=== PATIENT | female | born 2000 | race Hispanic/Latino ===

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

== ENCOUNTER 2019-03-26 06:22 | Emergency (ER) | payer BC, OTHER ==
--- OUTSIDE RECORDS SUMMARY | 2019-03-26 06:24 | XMS REPORT | Summary of Care ---
:2000 Author Organization [facility] - Health Address [address] [place] [address] Care Team Providers Name Role Phone Sarah Conrad Primary Care Provider Encounter Details Date Type Department Care Team Description 12/18/2018 Orders Only [facility] Doctor Unassigned, No [address] [facility] [place] [address] [address] [place] [address] Allergies Active Allergy Reactions Severity Noted Date Comments Cantaloupe Hives, Shortness of Breath 03/04/2016 documented as of this encounter (statuses as of 12/18/2018) Medications Medication Sig Dispensed Refills Start Date End Date Status levalbuterol 0 08/21/2015 Active (XOPENEX) 1.25 mg/3 mL nebulizer solution EPIPEN 2-TRINA 0.3 INJECT 1 PEN INJECTOR 0 02/23/2017 Active mg/0.3 mL injection INTRAMUSCULARLY PRN cetirizine (ZYRTEC) Take 10 mg by mouth 0 Active 10 mg tablet daily. estradiol 1 mg Take 1 tablet by 30 tablet 3 12/06/2017 Active tablet mouth daily. dicyclomine 20 mg TK 1 T PO Q 6 H PRN 0 02/10/2018 Active tablet metroNIDAZOLE 500 TK 1 T PO BID FOR 7 0 05/18/2018 Active mg tablet DAYS Hospital, Clinic, or Other Ordered Dose Route Frequency Start Date End Date Status Facility Administered Medication medroxyPROGESTERone 150 mg IM [id number] 09/18/2018 05/28/2019 Active (DEPO-PROVERA) injection 150 mg documented as of this encounter (statuses as of 12/18/2018) Active Problems No known active problemsdocumented as of this encounter (statuses as of 2018) Social History Tobacco Use Types Packs/Day Years Used Date Never Smoker Smokeless Tobacco: Never Used Alcohol Use Drinks/Week oz/Week Comments No 0 Standard drinks or equivalent 0.0 Sex Assigned at Date Recorded Not on file Job Start Date Occupation Industry Not on file Not on file Not on file Travel History Travel Start Travel End No recent travel history available. documented as of this encounter Last Filed Vital Signs Not on filedocumented in this encounter Plan of Treatment Date Type Specialty Care Team Description 05/22/2019 Office Visit Obstetrics & Gynecology Marta Perez MD [address] [place] [address] [place] [address] [phone] Health Maintenance Due Date Last Done Comments MENINGOCOCCAL B VACCINES (1 10/11/2009 of 2 - Risk Bexsero 2-dose series) VARICELLA VACCINES (1 of 2 - 10/11/2012 13+ 2-dose series) HPV VACCINES (1 - Female 10/11/2014 3-dose series) DTaP,Tdap,and Td Vaccines (1 10/11/2018 - Tdap) INFLUENZA VACCINE (#1) 2018 CHLAMYDIA SCREENING 08/09/2019 08/08/2018, 12/06/2017, 03/07/2017, Additional history exists MENINGOCOCCAL VACCINE Aged Out No longer eligible based on patient's age to complete this topic PNEUMOCOCCAL 0-64 YEARS Aged Out No longer eligible COMBINED SERIES based on patient's age to complete this topic documented as of this encounter Procedures Procedure Name Priority Date/Time Associated Diagnosis Comments NO SHOW OR MISSED Routine 12/18/2018 9:20 AM APPOINTMENT POLICY CDT ACKNOWLEDGEMENT documented in this encounter Results Not on filedocumented in this encounter Insurance Payer Benefit Plan / Subscriber ID Effective Phone Address Type Group Dates [facility] [id number] 2018-Tamiko [phone] [address] PPO/POS [id number] [place] [address] [facility] xxxxxxxxx 2016-Tamiko Medicaid CHILDRENS HEALTH nt HEALTH PLAN - MANAGED MEDICAID documented as of this encounter
--- OUTSIDE RECORDS SUMMARY | 2019-03-26 06:24 | XMS REPORT ---
:2000 [facility] Address [address] [place] [address] Dr. Camargo [address] [place] [address] Care Team Providers Name Role Phone Unavailable Unavailable Unavailable Problems This patient has no known problems. Allergies, Adverse Reactions, Alerts This patient has no known allergies or adverse reactions. Medications This patient has no known medications.
--- OUTSIDE RECORDS SUMMARY | 2019-03-26 06:24 | XMS REPORT | Summary of Care ---
:2000 Author Organization [facility] Address [address] [place] [address] Care Team Providers Name Role Phone Sarah Conrad Primary Care Provider Reason for Visit Reason Comments DEPO PROVERA Encounter Details Date Type Department Care Team Description 12/18/2018 Nurse Visit [facility] [address] [place] [address] DRShereen Rikki [address] [place] [address] Encounter for Healthcare- [place] Nurse, [facility] Depo-Provera [address] [place] [address], [facility] (Primary [address] Dx) [place] [phone] Allergies Active Allergy Reactions Severity Noted Date [...] Facility Administered Medication medroxyPROGESTERone 150 mg IM [id number] 09/18/2018 05/28/2019 Active (DEPO-PROVERA) injection 150 mg [...] of this encounter Last Filed Vital Signs Vital Sign Reading Time Taken Comments Blood Pressure 121/79 12/18/2018 9:58 AM CDT Pulse 98 12/18/2018 9:58 AM CDT Temperature 36.9 C (98.4 F) 12/18/2018 9:58 AM CDT Respiratory Rate 18 12/18/2018 9:58 AM CDT Oxygen Saturation - - Inhaled Oxygen Concentration - - Weight 67 kg (147 lb 12.8 oz) 12/18/2018 9:58 AM CDT Height 167.6 cm (5' 6") 12/18/2018 9:58 AM CDT Body Mass Index 23.86 12/18/2018 9:58 AM CDT documented in this encounter Progress Notes Tejal Weir MA - 12/18/2018 9:00 AM CDT18 year old female has been identified by and name. Verbal consent has been obtained by patientto have an injection of Depo Provera, as ordered by the provider. Date of last Depo Provera injection: 09/18/18 Last Pap Smear: n/a Encounter Diagnosis: Z 30.42 The site was cleaned with an alcohol swab and given intramuscularly (IM) in the right gluteus. A band aid dressing was then applied to the injection site. The patient tolerated the procedure well , no rash, swelling or reaction noted. documented in this encounter Plan of Treatment Date Type Specialty Care Team Description 03/19/2019 Nurse Visit Obstetrics & Gynecology Nurse, [facility] 05/22/2019 Office Visit Obstetrics & Gynecology Marta Perez MD [address] [place] [address] [place] [address] [phone] Health Maintenance Due Date Last Done Comments [...] this topic documented as of this encounter Results Not on filedocumented in this encounter Visit Diagnoses Diagnosis Encounter for Depo-Provera contraception - Primary Surveillance of other previously prescribed contraceptive method documented in this encounter Administered Medications Medication Order MAR Action Action Date Dose Rate Site medroxyPROGESTERone Given 12/18/2018 9:41 150 mg Right (DEPO-PROVERA) injection 150 AM CDT Dorsogluteal-IM mg 150 mg, Intramuscular, [id number], 3 doses, First dose on Tue09/18/18 at 1015, Last dose on Tue03/05/19 at 1015, Routine Given 09/18/2018 10:06 AM CDT 150 mg Left Dorsogluteal-IM documented in this encounter Insurance Payer Benefit Plan Subscriber ID Effective Dates Phone Address Type / Group BCBS [facility] [id number] 2018-Astrid [phone] [address] PPO/POS [place] [id number] [place] [address] documented as of this encounter
[2019-03-26] MEDS ORDERED: MORPHINE 4 MG/ML SYR ONE (06:55)
[2019-03-26] MEDS ORDERED: ONDANSETRON 4 MG/2 ML VIAL ONE (06:55)
[2019-03-26 07:00] LABS: Absolute Lymphocytes (CBC) 2.4 K/uL (0.7-4.9); Basophils % 0.5 % (0-1.3); Hematocrit 38.9 % (36.0-45.0); Lymphocytes % 23.1 % (15.3-44.8); MPV 9.1 fL (7.6-11.3); RBC Red Blood Cell Count 4.13 M/uL (3.86-4.86)
[2019-03-26 07:40] LABS: ALT/SGPT 26 U/L (12-78); Albumin 4.1 g/dL (3.4-5.0); Alkaline Phosphatase 78 U/L (45-117); BUN Blood Urea Nitrogen 12 mg/dL (7-18); Bicarbonate 24 mmol/L (21-32); Bilirubin Total 0.6 mg/dL (0.2-1.0); Glucose Level 90 mg/dL (74-106); Protein, Total 7.3 g/dL (6.4-8.2); Sodium Level 141 mmol/L (136-145)
[2019-03-26 07:47] LABS: Urine Blood TRACE (NEG); Urine Glucose NEGATIVE (NEG); Urine Protein NEGATIVE (NEG); Urine Specific Gravity 1.025 (1.005-1.030)
--- NOTE | 2019-03-26 08:20 | ER ---
Nurse's Notes [facility] Name: July Simental Age: 18 yrs Sex: Female : 2000 Arrival Date: 03/26/2019 Time: 06:25 Bed 5 Private MD: Diagnosis: Constipation;Right lower quadrant abdominal tenderness Presentation: 03/26 06:30 Presenting complaint: Patient states: sudden pain felt around 0530 today morning. pain rr5 score 10/10. denies nausea, vomiting or diarrhea. Transition of care: patient was not received from another setting of care. Onset of symptoms was March 26, 2019 at 05:30. Risk Assessment: Do you want to hurt yourself or someone else? Patient reports no desire to harm self or others. Initial Sepsis Screen: Does the patient meet any 2 criteria? No. Patient's initial sepsis screen is negative. Does the patient have a suspected source of infection? No. Patient's initial sepsis screen is negative. Care prior to arrival: None. 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 - Social history:: Smoking status: Patient/guardian denies using tobacco, Patient uses alcohol, but reports only rare drinking. Patient/guardian denies using street drugs. - Ebola Screening: : Patient negative for fever greater than or equal to 101.5 degrees Fahrenheit, and additional compatible Ebola Virus Disease symptoms Patient denies exposure to infectious person Patient denies travel to an Ebola-affected area in the 21 days before illness onset. Screenin:35 Abuse screen: Denies threats or abuse. Denies injuries from another. Nutritional rr5 screening: No deficits noted. Tuberculosis screening: No symptoms or risk factors identified. Fall Risk IV access (20 points). Total Ballard Fall Scale indicates No Risk (0-24 pts). Assessment: 06:35 General: Appears in no apparent distress. uncomfortable, Behavior is calm, cooperative, rr5 appropriate for age. Pain: Complains of pain in lower abdomen Pain does not radiate. Pain currently is 10 out of 10 on a pain scale. Quality of pain is described as aching, Pain began suddenly, Is continuous. Neuro: Level of Consciousness is awake, alert, obeys commands, Oriented to person, place, time, situation, Appropriate for age. Cardiovascular: Capillary refill < 3 seconds Patient's skin is warm and dry. Respiratory: Airway is patent Respiratory effort is even, unlabored, Respiratory pattern is regular, symmetrical. GI: Abdomen is flat, Bowel sounds present X 4 quads. Guarding noted in lower quadrant Reports lower abdominal pain, Patient currently denies diarrhea, nausea, vomiting. : No signs and/or symptoms were reported regarding the genitourinary system. EENT: No signs and/or symptoms were reported regarding the EENT system. Derm: Skin is intact, is healthy with good turgor, Skin temperature is warm. Musculoskeletal: Circulation, motion, and sensation intact. Capillary refill < 3 seconds. 07:29 Reassessment: Patient appears in no apparent distress at this time. No changes from la1 previously documented assessment. Patient and/or family updated on plan of care and expected duration. Pain level reassessed. Vital Signs: 06:31 BP 130 / 92; Pulse 110; Resp 18; Temp 98.7; Pulse Ox 100% ; Weight 69.4 kg; Height 5 rr5 ft. 5 in. (165.10 cm); Pain 10/10; 06:31 Body Mass Index 25.46 (69.40 kg, 165.10 cm) rr5 ED Course: 06:25 Patient arrived in ED. jg7 06:30 Marky Mitchell RN is Primary Nurse. rr5 06:30 Arm band placed on. rr5 06:31 Triage completed. rr5 06:33 Ventura Ludwig PA is PHCP. jr8 06:33 Ace De MD is Attending Physician. jr8 06:37 Patient has correct armband on for positive identification. Bed in low position. Call rr5 light in reach. Pulse ox on. NIBP on. 06:45 Inserted saline lock: 20 gauge in left forearm, using aseptic technique. Blood rr5 collected. 07:43 US Transvaginal Study (Probe) In Process Unspecified. EDMS 08:03 CT Abd/Pelvis - IV Contrast Only In Process Unspecified. EDMS 08:56 No provider procedures requiring assistance completed. IV discontinued, intact, ss bleeding controlled, No redness/swelling at site. Pressure dressing applied. Administered Medications: 07:00 Drug: Zofran 4 mg Route: IVP; Site: left forearm; rr5 07:02 Drug: morphine 4 mg {Note: rass 0.} Route: IVP; Site: left forearm; rr5 Outcome: 08:19 Discharge ordered by . yousuf 08:56 Discharged to home ambulatory. ss 08:56 Condition: good 08:56 Discharge instructions given to patient, Instructed on discharge instructions, follow up and referral plans. medication usage, Demonstrated understanding of instructions, follow-up care, medications, Prescriptions given X 1. 08:57 Patient left the ED. ss Signatures: Dispatcher [employer] EDSD Stephanie Luis RN RN Ventura Barajas PA PA jr8 Yaniv Ruelas RN RN la1 Marky Mitchell RN RN rr5 Anisha Bluntg7 Corrections: (The following items were deleted from the chart) 06:48 06:34 Allergies: NKDA [Inactive]; rr5 rr5
--- NOTE | 2019-03-26 08:21 | EDPHYS ---
Physician Documentation [facility] Name: July Simental Age: 18 yrs Sex: Female : 2000 Arrival Date: 03/26/2019 Time: 06:25 Bed 5 Private MD: ED Physician Ace De HPI: 03/26 07:28 This 18 yrs old Female presents to ER via Ambulatory with complaints of jr8 Abdominal Pain. 07:28 The patient presents with abdominal pain right lower quadrant. Onset: The jr8 symptoms/episode began/occurred acutely, today. The symptoms do not radiate. Associated signs and symptoms: none. The symptoms are described as stabbing. Modifying factors: The symptoms are alleviated by nothing, the symptoms are aggravated by nothing. Severity of pain: At its worst the pain was moderate in the emergency department the pain is unchanged. The patient has experienced a previous episode. The patient has not recently seen a physician. Patient stated that she had sudden onset right lower pelvic pain that will not go away. Stated that she has had this once before along time ago. Stated that it was ovarian torsion and had to have surgery . DAG COATER: 06:31 LMP N/A - Depo-provera rr5 Historical: - Allergies: 06:33 No Known Allergies; rr5 - Home Meds: 06:33 Depo-Provera IM [Active]; rr5 06:47 Zyrtec Oral [Active]; Xopenex Inhl [Active]; rr5 - PMHx: 06:33 Ulcers; rr5 06:34 Asthma; Heart Murmur; neurofibromatosis; Ovarian cyst; rr5 - PSHx: 06:34 ovarian cyst removal; rr5 - Immunization history:: Adult Immunizations up to date. - Social history:: Smoking status: Patient/guardian denies using tobacco, Patient uses alcohol, but reports only rare drinking. Patient/guardian denies using street drugs. - Ebola Screening: : Patient negative for fever greater than or equal to 101.5 degrees Fahrenheit, and additional compatible Ebola Virus Disease symptoms Patient denies exposure to infectious person Patient denies travel to an Ebola-affected area in the 21 days before illness onset. ROS: 07:28 Eyes: Negative for injury, pain, redness, and discharge, ENT: Negative for injury, jr8 pain, and discharge, Neck: Negative for injury, pain, and swelling, Cardiovascular: Negative for chest pain, palpitations, and edema, Respiratory: Negative for shortness of breath, cough, wheezing, and pleuritic chest pain, Back: Negative for injury and pain, MS/Extremity: Negative for injury and deformity, Skin: Negative for injury, rash, and discoloration, Neuro: Negative for headache, weakness, numbness, tingling, and seizure. 07:28 Abdomen/GI: Positive for abdominal pain, Negative for nausea, vomiting, and diarrhea, abdominal cramps, abdominal distension, anorexia, dysphagia, hematemesis, rectal pain. Exam: 07:28 Eyes: Pupils equal round and reactive to light, extra-ocular motions intact. Lids and jr8 lashes normal. Conjunctiva and sclera are non-icteric and not injected. Cornea within normal limits. Periorbital areas with no swelling, redness, or edema. ENT: Nares patent. No nasal discharge, no septal abnormalities noted. Tympanic membranes are normal and external auditory canals are clear. Oropharynx with no redness, swelling, or masses, exudates, or evidence of obstruction, uvula midline. Mucous membranes moist. Neck: Trachea midline, no thyromegaly or masses palpated, and no cervical lymphadenopathy. Supple, full range of motion without nuchal rigidity, or vertebral point tenderness. No Meningismus. Cardiovascular: Regular rate and rhythm with a normal S1 and S2. No gallops, murmurs, or rubs. Normal PMI, no JVD. No pulse deficits. Respiratory: Lungs have equal breath sounds bilaterally, clear to auscultation and percussion. No rales, rhonchi or wheezes noted. No increased work of breathing, no retractions or nasal flaring. Back: No spinal tenderness. No costovertebral tenderness. Full range of motion. Skin: Warm, dry with normal turgor. Normal color with no rashes, no lesions, and no evidence of cellulitis. MS/ Extremity: Pulses equal, no cyanosis. Neurovascular intact. Full, normal range of motion. Neuro: Awake and alert, GCS 15, oriented to person, place, time, and situation. Cranial nerves II-XII grossly intact. Motor strength 5/5 in all extremities. Sensory grossly intact. Cerebellar exam normal. Normal gait. 07:28 Abdomen/GI: Inspection: abdomen appears normal, Bowel sounds: active, all quadrants, Palpation: soft, in all quadrants, moderate abdominal tenderness, in the right lower quadrant, right lower pelvic, mass, is not appreciated, rebound tenderness, is not appreciated, voluntary guarding, is not appreciated, involuntary guarding, is not appreciated, no appreciated organomegaly, Indicators: McBurney's point is not tender, Medina's sign is negative, Rovsing's sign is negative, Liver: tenderness, is not appreciated. Vital Signs: 06:31 BP 130 / 92; Pulse 110; Resp 18; Temp 98.7; Pulse Ox 100% ; Weight 69.4 kg; Height 5 rr5 ft. 5 in. (165.10 cm); Pain 10/10; 06:31 Body Mass Index 25.46 (69.40 kg, 165.10 cm) rr5 MDM: 06:42 Patient medically screened. 8 08:18 Data reviewed: vital signs, nurses notes, lab test result(s), radiologic studies, CT jr8 scan, ultrasound, and as a result, I will discharge patient. Data interpreted: Pulse oximetry: on room air is 100 %. Interpretation: normal. Counseling: I had a detailed discussion with the patient and/or guardian regarding: the historical points, exam findings, and any diagnostic results supporting the discharge/admit diagnosis, lab results, radiology results, the need for outpatient follow up, a family practitioner, to return to the emergency department if symptoms worsen or persist or if there are any questions or concerns that arise at home. 08:18 Special discussion: Based on the patient's Hx, exam, and Dx evaluation, there is no jr8 indication for emergent surgery or inpatient Tx. It is understood by the patient/guardian that if the Sx's persist or worsen they need to return immediately for re-evaluation. 03/26 06:43 Order name: Urine Dipstick--Ancillary (enter results); Complete Time: 07:48 cm6 03/26 06:43 Order name: Urine --Ancillary (enter results); Complete Time: 07:48 cm6 03/26 06:50 Order name: Basic Metabolic Panel; Complete Time: 08:38 jr8 03/26 06:50 Order name: CBC with Diff; Complete Time: 07:11 jr8 03/26 06:50 Order name: Creatinine for Radiology; Complete Time: 07:45 jr8 03/26 06:50 Order name: Hepatic Function; Complete Time: 08:38 8 03/26 06:50 Order name: IV Saline Lock; Complete Time: 06:52 8 03/26 06:50 Order name: Labs collected and sent; Complete Time: 06:53 8 03/26 06:50 Order name: US Transvaginal Study (Probe) [facility] 03/26 07:48 Order name: CT Abd/Pelvis - IV Contrast Only; Complete Time: 08:34 [facility] Administered Medications: 07:00 Drug: Zofran 4 mg Route: IVP; Site: left forearm; rr5 07:02 Drug: morphine 4 mg {Note: rass 0.} Route: IVP; Site: left forearm; rr5 Disposition: 03/27 03:35 Co-signature as Attending Physician, Ace De MD I agree with the assessment and tw4 plan of care. Disposition: 03/26/19 08:19 Discharged to Home. Impression: Constipation, Right lower quadrant abdominal tenderness. - Condition is Stable. - Discharge Instructions: Abdominal Pain, Adult, Constipation, Adult. - Prescriptions for Miralax 17 gram/dose Oral - take 1 packet by ORAL route once daily dilute powder in 8 ounces of water or juice; 1 box. - Medication Reconciliation Form, Thank You Letter, Antibiotic Education, Prescription Opioid Use, Work release form form. - Follow up: Private Physician; When: 5 - 6 days; Reason: Recheck today's complaints, Continuance of care, Re-evaluation by your physician. - Problem is new. - Symptoms have improved. Signatures: Dispatcher [facility] Stephanie Luis RN RN ss Ventura Ludwig PA PA jr8 Ace De MD MD tw4 Marky Mitchell RN RN rr5 Corrections: (The following items were deleted from the chart) 03/26 06:48 06:34 Allergies: NKDA [Inactive]; rr5 rr5 08:57 08:19 03/26/2019 08:19 Discharged to Home. Impression: Constipation; Right lower ss quadrant abdominal tenderness. Condition is Stable. Forms are Medication Reconciliation Form, Thank You Letter, Antibiotic Education, Prescription Opioid Use. Follow up: Private Physician; When: 5 - 6 days; Reason: Recheck today's complaints, Continuance of care, Re-evaluation by your physician. Problem is new. Symptoms have improved. jr8
--- NOTE | 2019-03-26 08:29 | RAD REPORT ---
EXAM DESCRIPTION: CT - Abdomen Pelvis W Contrast - 03/26/2019 8:02 am CLINICAL HISTORY: ABD PAIN, history of torsion COMPARISON: January 2018 TECHNIQUE: Biphasic, helical CT imaging of the abdomen and pelvis was performed following 100 ml non -ionic IV contrast. No oral contrast given. All CT scans are performed using dose optimization technique as appropriate and may include automated exposure control or mA/KV adjustment according to patient size. FINDINGS: No suspicious findings in the lung bases. The liver, spleen, and pancreas show no suspicious findings. Gallbladder and biliary tree are also wi thout suspicious finding. Symmetric renal function is seen with no hydronephrosis or suspicious renal mass. No pyelonephritis o r acute parenchymal process. No bladder abnormalities. No adrenal abnormalities. No gastric dilatation or wall thickening. No significant small bowel finding to the mid ileum level. Distal ileum contains fecalized bowel content. Moderately large stool volume fills the right-side of the colon. There is moderate stool volume in the redundant sigmoid colon. No appendicitis findings. Uterus and ovaries show no suspicious findings. No free air, free fluid or inflammatory stranding. No hernia, mass or bulky lymphadenopathy. No suspicious bony findings. IMPRESSION: Contrast enhanced CT abdomen and pelvis showing no significant or suspicious finding. Nonacute findings detailed in the body of the report.
[2019-03-26 08:31] LABS: AST/SGOT 21 U/L (15-37); Bilirubin Direct 0.2 mg/dL (0-0.2); Potassium 3.7 mmol/L (3.5-5.1)
[2019-03-26 09:32] VITALS: BP 130/92; TEMP 98.7; O2SAT 100
--- NOTE | 2019-03-26 10:24 | RAD REPORT ---
EXAM DESCRIPTION: US - Transvaginal Study Probe - 03/26/2019 7:43 am CLINICAL HISTORY: Pelvic pain, history of torsion COMPARISON: None. TECHNIQUE: Endovaginal sonography was performed. FINDINGS: Preliminary findings were provided the time of the study. Uterus is 7.6 x 2.7 x 4.6 cm. No myometrial mass. Endometrium is 2-3 mm in thickness. Old blood is se en in the endometrial cavity. No endometrial mass or polyp identifiable. Both ovaries are identified and normal in size. Doppler evaluation shows blood flow within the ovaria n stroma. No dominant solid or cystic ovarian or adnexal mass. No blood or fluid in the cul de sac. IMPRESSION: As detailed above, no significant or suspicious pelvic findings.
== END 2019-03-26 08:57 | disposition home or self-care (01) ==
LOC: ER 06:22
DX: R10.813 Right lower quadrant abdominal tenderness (principal); K59.00 Constipation, unspecified; J45.909 Unspecified asthma, uncomplicated
CPT/HCPCS: 85025; 80048; 36415; 81025; 80076; 81003; 74177; 76830; 96375; 96374; 99284; Q9967; J2405

== ENCOUNTER 2019-04-19 09:43 | Emergency (ER) | payer BC ==
--- OUTSIDE RECORDS SUMMARY | 2019-04-19 09:45 | XMS REPORT ---
:2000 [facility] Address [address] [place] [address] Dr. Camargo [address] [place] [id number] Care Team Providers Name Role Phone Unavailable Unavailable Unavailable Problems This patient has no known problems. Allergies, Adverse Reactions, Alerts This patient has no known allergies or adverse reactions. Medications This patient has no known medications.
[2019-04-19] MEDS ORDERED: IBUPROFEN 200 MG TAB PO ONE (10:18)
--- NOTE | 2019-04-19 11:49 | ER ---
Nurse's Notes [facility] Name: July Simental Age: 18 yrs Sex: Female : 2000 Arrival Date: 04/19/2019 Time: 09:45 Bed 16 Private MD: Diagnosis: Influenza due to other identified influenza virus Presentation: 04/19 09:56 Presenting complaint: Patient states: sore throat, body aches, headache, fever and ss cough that began 2 days ago. Transition of care: patient was not received from another setting of care. Onset of symptoms was April 17, 2019. Risk Assessment: Do you want to hurt yourself or someone else? Patient reports no desire to harm self or others. Initial Sepsis Screen: Does the patient meet any 2 criteria? HR > 90 bpm. Does the patient have a suspected source of infection? No. Patient's initial sepsis screen is negative. Care prior to arrival: None. 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 - Social history:: Smoking status: Patient/guardian denies using tobacco. - Ebola Screening: : Patient denies exposure to infectious person Patient denies travel to an Ebola-affected area in the 21 days before illness onset. - Family history:: not pertinent. - Hospitalizations: : No recent hospitalization is reported. Screenin:50 Abuse screen: Denies threats or abuse. Nutritional screening: No deficits noted. rb1 Tuberculosis screening: No symptoms or risk factors identified. Fall Risk None identified. Assessment: 09:50 General: Appears in no apparent distress. comfortable, Behavior is calm, cooperative, rb1 Reports fever for feeling ill for 2-3 days. Pain: Complains of pain in sore throat, headache, bodyaches Pain currently is 8 out of 10 on a pain scale. Pain began 2-3 days ago. Neuro: Level of Consciousness is awake, alert, obeys commands, Oriented to person, place, time, situation. Cardiovascular: Capillary refill < 3 seconds is brisk in bilateral fingers. Respiratory: Reports cough that is Airway is patent Respiratory effort is even, unlabored, Respiratory pattern is regular, symmetrical. GI: Reports nausea. : No signs and/or symptoms were reported regarding the genitourinary system. EENT: Throat is reddened. Derm: Skin is pink, warm \T\ dry. 11:30 Reassessment: Patient appears in no apparent distress at this time. Patient is alert, ca1 oriented x 3, equal unlabored respirations, skin warm/dry/pink. Respiratory: Breath sounds are clear. Vital Signs: 09:55 BP 138 / 95; Pulse 127; Resp 16; Temp 99.1; Pulse Ox 99% on R/A; Weight 64.86 kg; ss Height 5 ft. 5 in. (165.10 cm); Pain 8/10; 10:55 BP 136 / 86; Pulse 117; Resp 15; Pulse Ox 99% on R/A; rb1 09:55 Body Mass Index 23.80 (64.86 kg, 165.10 cm) ED Course: 09:45 Patient arrived in ED. ag5 09:48 Stephen Tran MD is Attending Physician. rn 09:55 Camryn Ruiz, JOE is Primary Nurse. rb1 09:55 Arm band placed on right wrist. ss 09:57 Triage completed. ss 10:07 Flu Sent. 5 10:07 Strep Sent. 5 10:08 Patient has correct armband on for positive identification. Bed in low position. Call 5 light in reach. Adult w/ patient. Pulse ox on. NIBP on. 10:08 Flu and/or RSV swab sent to lab. Strep swab sent to lab. 5 11:58 No provider procedures requiring assistance completed. Patient did not have IV access ca1 during this emergency room visit. Administered Medications: 10:18 Drug: Motrin 600 mg Route: PO; Outcome: 11:48 Discharge ordered by . rn 11:58 Discharged to home ambulatory, with family. ca1 11:58 Condition: stable 11:58 Discharge instructions given to patient, Instructed on discharge instructions, follow up and referral plans. medication usage, Demonstrated understanding of instructions, follow-up care, medications, Prescriptions given X 1. 11:59 Patient left the ED. ca1 Signatures: Stephen Tran MD MD rn Smirch, Shelby, RN RN ss Camryn Ruiz, RN RN rb1 Eron, Rupinder 5 AcErnestina davies, RN RN ca1 Anamika, Digna ag5
--- NOTE | 2019-04-19 11:49 | EDPHYS ---
Physician Documentation [facility] Name: July Simental Age: 18 yrs Sex: Female : 2000 Arrival Date: 04/19/2019 Time: 09:45 Bed 16 Private MD: ED Physician Stephen Tran HPI: 04/19 11:44 This 18 yrs old Female presents to ER via Ambulatory with complaints of Cough, rn Fever, Sore Throat. 11:44 The patient or guardian reports cough, flu symptoms. Onset: The symptoms/episode rn began/occurred 2 day(s) ago. Severity of symptoms: At their worst the symptoms were moderate, in the emergency department the symptoms are unchanged. Modifying factors: The symptoms are alleviated by nothing, the symptoms are aggravated by nothing. Associated signs and symptoms: Pertinent positives: diarrhea, fever, rhinorrhea, sore throat. The patient has not experienced similar symptoms in the past. The patient has not recently seen a physician. 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 - Social history:: Smoking status: Patient/guardian denies using tobacco. - Ebola Screening: : Patient denies exposure to infectious person Patient denies travel to an Ebola-affected area in the 21 days before illness onset. - Family history:: not pertinent. - Hospitalizations: : No recent hospitalization is reported. ROS: 11:44 Constitutional: Negative for fever, chills, and weight loss, Eyes: Negative for injury, rn pain, redness, and discharge, ENT: + congestion and sore throat Neck: Negative for injury, pain, and swelling, Cardiovascular: Negative for chest pain, palpitations, and edema, Respiratory: + cough Abdomen/GI: Negative for abdominal pain, nausea, vomiting, and constipation, MS/Extremity: Negative for injury and deformity, Skin: Negative for injury, rash, and discoloration, Neuro: + headache and weakness Exam: 11:44 Constitutional: This is a well developed, well nourished patient who is awake, alert, rn and in no acute distress. Head/Face: Normocephalic, atraumatic. Eyes: Pupils equal round and reactive to light, extra-ocular motions intact. Lids and lashes normal. Conjunctiva and sclera are non-icteric and not injected. Cornea within normal limits. Periorbital areas with no swelling, redness, or edema. ENT: dry MM, no stridor or swelling Neck: Trachea midline, no thyromegaly or masses palpated, and no cervical lymphadenopathy. Supple, full range of motion without nuchal rigidity, or vertebral point tenderness. No Meningismus. Cardiovascular: tachycardic, regular, no murmur Respiratory: No increased work of breathing, no retractions or nasal flaring. Abdomen/GI: Soft, non-tender. MS/ Extremity: Pulses equal, no cyanosis. Neurovascular intact. Full, normal range of motion. Equal circumference. Neuro: Awake and alert, GCS 15, oriented to person, place, time, and situation. Cranial nerves II-XII grossly intact. Motor strength 5/5 in all extremities. Sensory grossly intact. Vital Signs: 09:55 BP 138 / 95; Pulse 127; Resp 16; Temp 99.1; Pulse Ox 99% on R/A; Weight 64.86 kg; ss Height 5 ft. 5 in. (165.10 cm); Pain 8/10; 10:55 BP 136 / 86; Pulse 117; Resp 15; Pulse Ox 99% on R/A; rb1 09:55 Body Mass Index 23.80 (64.86 kg, 165.10 cm) ss MDM: 09:48 Patient medically screened. rn 11:44 Differential Diagnosis: Influenza Upper Respiratory Infection Pharyngitis Viral rn Syndrome. Data reviewed: vital signs, nurses notes, lab test result(s), and as a result, I will discharge patient. Counseling: I had a detailed discussion with the patient and/or guardian regarding: the historical points, exam findings, and any diagnostic results supporting the discharge/admit diagnosis, lab results, the need for outpatient follow up, to return to the emergency department if symptoms worsen or persist or if there are any questions or concerns that arise at home. Special discussion: I discussed with the patient/guardian in detail that at this point there is no indication for admission to the hospital. It is understood, however, that if the symptoms persist or worsen the patient needs to return immediately for re-evaluation. 04/19 10:05 Order name: Strep; Complete Time: 11:40 rb1 04/19 10:05 Order name: Flu; Complete Time: 11:40 rb1 04/19 10:29 Order name: Throat Culture EDMS Administered Medications: 10:18 Drug: Motrin 600 mg Route: PO; Disposition: 04/19/19 11:48 Discharged to Home. Impression: Influenza due to other identified influenza virus. - Condition is Stable. - Discharge Instructions: Influenza, Adult. - Prescriptions for Tamiflu 75 mg Oral Capsule - take 1 capsule by ORAL route every 12 hours for 5 days; 10 capsule. - Medication Reconciliation Form, Thank You Letter, Antibiotic Education, Prescription Opioid Use form. - Follow up: Private Physician; When: As needed; Reason: Recheck today's complaints, Re-evaluation by your physician. - Problem is new. - Symptoms have improved. Signatures: Dispatcher [employer] [facility]IL Stephen Tran MD MD rn Smirch, Shelby, RN RN Ernestina gNuyễn RN RN ca1 Corrections: (The following items were deleted from the chart) 11:59 11:48 04/19/2019 11:48 Discharged to Home. Impression: Influenza due to other ca1 identified influenza virus. Condition is Stable. Forms are Medication Reconciliation Form, Thank You Letter, Antibiotic Education, Prescription Opioid Use. Follow up: Private Physician; When: As needed; Reason: Recheck today's complaints, Re-evaluation by your physician. Problem is new. Symptoms have improved. rn
[2019-04-19 15:29] VITALS: TEMP 99.1; O2SAT 99
[2019-04-19 15:31] VITALS: BP 136/86
== END 2019-04-19 11:59 | disposition home or self-care (01) ==
LOC: ER 09:43
DX: J10.1 Influenza due to other identified influenza virus with other respiratory manifestations (principal)
CPT/HCPCS: 87070; 87081; 87804; 99284

== ENCOUNTER 2020-08-20 14:09 | Emergency (ER) | payer BC, OTHER ==
--- OUTSIDE RECORDS SUMMARY | 2020-08-20 14:12 | XMS REPORT | Continuity of Care Document ---
:2000 Author Organization [facility] t Address [address] [place] [address] [address]. [address] [place] [address] Care Team Providers Name Role Phone Doctor Unassigned, Name Attending Clinician Unavailable Chris CALDWELL, Grant Attending Clinician Problems This patient has no known problems. Allergies, Adverse Reactions, Alerts This patient has no known allergies or adverse reactions. Medications This patient has no known medications. Procedures This patient has no known procedures. Encounters Start End Encounter Admission Attending Care Care Encounter Source Date/Time Date/Time Type Type Clinicians Facility Department ID 2020-07-22 2020-07-22 Orders Doctor MONTES [id number] 00:00:00 00:00:00 Only UnassignedARI [id number] Duck [facility] [id number] 2020-07-14 2020-07-14 Orders Doctor MONTES [id number] 00:00:00 00:00:00 [id number] [facility] [id number] 2020-07-09 2020-07-09 Case Marta Perez [facility] [id number] 00:00:00 00:00:00 Management Grant Linda [id number] Jessica [id number] [facility] [id number] [address] 2020-06-30 2020-06-30 Emergency E [facility] [id number] [facility] 14:29:00 14:29:00 Results This patient has no known results.
[2020-08-20 15:15] LABS: Urine Blood Negative (Negative); Urine Glucose Negative (Negative); Urine Protein Negative (Negative); Urine Specific Gravity 1.025 (1.005-1.030)
[2020-08-20 17:24] LABS: Basophils % 0.3 % (0-1.3); Lymphocytes % 20.9 % (15.3-44.8); MPV 9.4 fL (7.6-11.3); RBC Red Blood Cell Count 4.19 M/uL (3.86-4.86)
[2020-08-20] MEDS ORDERED: ONDANSETRON 4 MG/2 ML VIAL ONE (17:43)
[2020-08-20] MEDS ORDERED: NA CHLORIDE 0.9% 1,000 ML ONE (17:43)
[2020-08-20 18:05] LABS: ALT/SGPT 18 U/L (12-78); AST/SGOT 21 U/L (15-37); Albumin 4.2 g/dL (3.4-5.0); Alkaline Phosphatase 81 U/L (45-117); BUN Blood Urea Nitrogen 10 mg/dL (7-18); Bicarbonate 25 mmol/L (21-32); Bilirubin Direct < 0.1 mg/dL (0-0.2); Bilirubin Total 0.3 mg/dL (0.2-1.0); Glucose Level 85 mg/dL (74-106); Lipase 60 U/L (73-393); Potassium 4.1 mmol/L (3.5-5.1); Protein, Total 7.7 g/dL (6.4-8.2); Sodium Level 137 mmol/L (136-145)
--- NOTE | 2020-08-20 18:23 | ER ---
Nurse's Notes [facility] Name: July Simental Age: 19 yrs Sex: Female : 2000 Arrival Date: 08/20/2020 Time: 14:13 Bed 13 Private MD: Diagnosis: Nausea and vomiting Presentation: 08/20 14:26 Chief complaint: Patient states: N/V with stomach feeling queasy for [address] shea Siu, but he didn't give her any meds for N/V. Only prescribed blood work,urine test. She wanted help with her N/V so she came to ED. Coronavirus screen: Client denies travel out of the [place] in the last 14 days. fatigue, headache, nausea, vomiting. Client presents with at least one sign or symptom that may indicate coronavirus-19. Standard/surgical mask placed on the client. Ebola Screen: Patient denies travel to an Ebola-affected area in the 21 days before illness onset. Initial Sepsis Screen: Does the patient meet any 2 criteria? HR > 90 bpm. No. Patient's initial sepsis screen is negative. Does the patient have a suspected source of infection? Yes: Acute abdominal pain. Risk Assessment: Do you want to hurt yourself or someone else? Patient reports no desire to harm self or others. Onset of symptoms was August 20, 2020. 14:26 Method Of Arrival: Ambulatory [facility] 14:26 Acuity: ARON 3 ll1 Historical: - Allergies: 14:30 cantoloupe; ll1 - PMHx: 14:30 Heart Murmur; neurofibromatosis; Ovarian cyst; PUD; Asthma; Ulcers; colitis; arrhythmia;ll1 - PSHx: 14:30 Ear Tubes; ll1 - Immunization history:: Client reports having NOT received the Covid vaccine. Flu vaccine is not up to date. - Social history:: Smoking status: Patient denies any tobacco usage or history of. Screenin:20 Abuse screen: Denies threats or abuse. Denies injuries from another. Nutritional zb screening: No deficits noted. Tuberculosis screening: No symptoms or risk factors identified. Fall Risk None identified. Assessment: 17:34 General: Appears in no apparent distress. uncomfortable, Behavior is calm, cooperative, zb appropriate for age. Pain: Denies pain. Neuro: Level of Consciousness is awake, alert, obeys commands, Oriented to person, place, time, situation. Cardiovascular: No deficits noted. Respiratory: No deficits noted. GI: Abdomen is flat, non-distended, Bowel sounds present X 4 quads. Reports diarrhea, nausea, vomiting. Derm: Skin is intact, is healthy with good turgor, Skin is dry, Skin is normal. Musculoskeletal: Range of motion: intact in all extremities. 18:40 Reassessment: Patient appears in no apparent distress at this time. Patient and/or zb family updated on plan of care and expected duration. Pain level reassessed. Patient is alert, oriented x 3, equal unlabored respirations, skin warm/dry/pink. Patient states feeling better. Patient states symptoms have improved. 18:41 Reassessment: PO challenge complete. tolerated water well. denies nausea or vomiting at zb this time. Vital Signs: 14:26 BP 135 / 105; Pulse 102; Resp 16; Temp 97.0; Pulse Ox 99% ; Weight 76.2 kg; Height 5 ll1 ft. 6 in. (167.64 cm); Pain 0/10; 17:30 BP 128 / 80; Pulse 91; Resp 16; Pulse Ox 100% on R/A; zb 18:39 BP 110 / 70; Pulse 90; Resp 17; Pulse Ox 100% on R/A; zb 14:26 Body Mass Index 27.12 (76.20 kg, 167.64 cm) ll1 ED Course: 14:13 Patient arrived in ED. as 14:29 Triage completed. ll1 14:31 Arm band placed on. ll1 16:36 Aggie Velasquez FNP-C [facility]. kb 16:36 Stephen Tran MD is Attending Physician. kb 16:36 Ese Restrepo RN is Primary Nurse. zb 17:20 Patient has correct armband on for positive identification. Bed in low position. Call zb light in reach. Side rails up X 1. Adult w/ patient. Pulse ox on. NIBP on. Door closed. Noise minimized. 17:20 No provider procedures requiring assistance completed. Inserted saline lock: 20 gauge zb in right antecubital area, using aseptic technique. Blood collected. 18:42 IV discontinued, intact, bleeding controlled, No redness/swelling at site. Pressure zb dressing applied. Administered Medications: 17:32 Drug: NS 0.9% 1000 ml Route: IV; Rate: 1000 ml; Site: right antecubital; zb 18:40 Follow up: Response: No adverse reaction; IV Status: Completed infusion; IV Intake: zb 1000ml 17:33 Drug: Zofran (Ondansetron) 4 mg Route: IVP; Site: right antecubital; zb 18:40 Follow up: Response: No adverse reaction; Marked relief of symptoms zb Intake: 18:40 IV: 1000ml; Total: 1000ml. zb Outcome: 18:23 Discharge ordered by . dean 18:41 Discharged to home ambulatory. zb 18:41 Condition: stable 18:41 Discharge instructions given to patient, family, Instructed on discharge instructions, follow up and referral plans. medication usage, Demonstrated understanding of instructions, follow-up care, medications, Prescriptions given X 2. 19:09 Patient left the ED. zb Signatures: Aggie Velasquez, KAYDEN-C KAYDEN-Chelsie Chau Lynsay, RN RN ll1 Ese Restrepo RN RN zb
--- NOTE | 2020-08-20 18:24 | EDPHYS ---
Physician Documentation [facility] Name: July Simental Age: 19 yrs Sex: Female : 2000 Arrival Date: 08/20/2020 Time: 14:13 Bed 13 Private MD: ED Physician Stephen Tran HPI: 08/20 19:16 This 19 yrs old Female presents to ER via Ambulatory with complaints of kb Vomiting. 19:16 The patient presents to the emergency department with nausea, vomiting. Onset: The kb symptoms/episode began/occurred this morning. Possible causes: unknown. The symptoms are aggravated by nothing. The symptoms are alleviated by nothing. Associated signs and symptoms: Pertinent positives: nausea, vomiting. Severity of symptoms: At their worst the symptoms were moderate in the emergency department the symptoms are unchanged. The patient has not experienced similar symptoms in the past. The patient has been recently seen by a physician: the patient's primary care provider, with similar presenting complaints. Pt reports nausea and vomiting that started this morning. went to PCP and had tests ordered, but when she went to have them done they said she needed to schedule the tests. States her PCP wouldn't give her any medication to stop vomiting so she came here. Historical: - Allergies: 14:30 cantoloupe; ll1 - PMHx: 14:30 Heart Murmur; neurofibromatosis; Ovarian cyst; PUD; Asthma; Ulcers; colitis; arrhythmia;ll1 - PSHx: 14:30 Ear Tubes; ll1 - Immunization history:: Client reports having NOT received the Covid vaccine. Flu vaccine is not up to date. - Social history:: Smoking status: Patient denies any tobacco usage or history of. ROS: 19:14 Constitutional: Negative for fever, chills, and weight loss, Cardiovascular: Negative kb for chest pain, palpitations, and edema, Respiratory: Negative for shortness of breath, cough, wheezing, and pleuritic chest pain, MS/Extremity: Negative for injury and deformity, Skin: Negative for injury, rash, and discoloration, Neuro: Negative for headache, weakness, numbness, tingling, and seizure. 19:14 Abdomen/GI: Positive for nausea and vomiting, Negative for abdominal pain, diarrhea. Exam: 19:14 Constitutional: This is a well developed, well nourished patient who is awake, alert, kb and in no acute distress. Head/Face: Normocephalic, atraumatic. Cardiovascular: Regular rate and rhythm with a normal S1 and S2. No gallops, murmurs, or rubs. No pulse deficits. Respiratory: Respirations even and unlabored. No increased work of breathing, no retractions or nasal flaring. Abdomen/GI: Soft, non-tender. No distention Skin: Warm, dry with normal turgor. Normal color. MS/ Extremity: Pulses equal, no cyanosis. Neurovascular intact. Full, normal range of motion. Neuro: Awake and alert, GCS 15, oriented to person, place, time, and situation. Moves all extremities. Normal gait. Vital Signs: 14:26 BP 135 / 105; Pulse 102; Resp 16; Temp 97.0; Pulse Ox 99% ; Weight 76.2 kg; Height 5 ll1 ft. 6 in. (167.64 cm); Pain 0/10; 17:30 BP 128 / 80; Pulse 91; Resp 16; Pulse Ox 100% on R/A; zb 18:39 BP 110 / 70; Pulse 90; Resp 17; Pulse Ox 100% on R/A; zb 14:26 Body Mass Index 27.12 (76.20 kg, 167.64 cm) ll1 MDM: 16:37 Patient medically screened. kb 18:22 Data reviewed: vital signs, nurses notes. Data interpreted: Pulse oximetry: on room air kb is 99 %. Interpretation: normal. Counseling: I had a detailed discussion with the patient and/or guardian regarding: the historical points, exam findings, and any diagnostic results supporting the discharge/admit diagnosis, lab results, the need for outpatient follow up, a family practitioner, to return to the emergency department if symptoms worsen or persist or if there are any questions or concerns that arise at home. 08/20 15:14 Order name: Urine Dipstick-Ancillary; Complete Time: 16:37 EDMS 08/20 16:45 Order name: Basic Metabolic Panel kb 08/20 16:45 Order name: CBC with Diff kb 08/20 16:45 Order name: Hepatic Function kb 08/20 16:45 Order name: Lipase kb 08/20 16:46 Order name: Basic Metabolic Panel; Complete Time: 18:14 EDMS 08/20 15:15 Order name: Urine Dipstick-Ancillary (obtain specimen); Complete Time: 17:34 aa 08/20 16:46 Order name: CBC with Automated Diff; Complete Time: 17:37 [facility] 08/20 16:46 Order name: Liver (Hepatic) Function; Complete Time: 18:14 [facility] 08/20 16:46 Order name: Lipase; Complete Time: 18:14 [facility] 08/20 16:52 Order name: Hemoglobin A1c kb 08/20 15:15 Order name: Urine Test (obtain specimen); Complete Time: 17:34 aa5 08/20 16:45 Order name: IV Saline Lock; Complete Time: 17:20 kb 08/20 16:45 Order name: Labs collected and sent; Complete Time: 17:20 kb 08/20 18:15 Order name: PO challenge; Complete Time: 18:38 kb Administered Medications: 17:32 Drug: NS 0.9% 1000 ml Route: IV; Rate: 1000 ml; Site: right antecubital; zb 18:40 Follow up: Response: No adverse reaction; IV Status: Completed infusion; IV Intake: zb 1000ml 17:33 Drug: Zofran (Ondansetron) 4 mg Route: IVP; Site: right antecubital; zb 18:40 Follow up: Response: No adverse reaction; Marked relief of symptoms zb Disposition: 08/21 06:58 Co-signature as Attending Physician, Stephen Tran MD. rn Disposition: 08/20/20 18:23 Discharged to Home. Impression: Nausea and vomiting. - Condition is Stable. - Discharge Instructions: Nausea and Vomiting, Adult, [id number]. - Prescriptions for Bentyl 20 mg Oral Tablet - take 1 tablet by ORAL route every 6 hours As needed; 20 tablet. Zofran 4 mg Oral Tablet - take 1 tablet by ORAL route every 6 hours As needed; 20 tablet. - Medication Reconciliation Form, Thank You Letter, Antibiotic Education, Prescription Opioid Use form. - Follow up: Emergency Department; When: As needed; Reason: Worsening of condition. Follow up: Private Physician; When: 2 - 3 days; Reason: Recheck today's complaints, Continuance of care, Re-evaluation by your physician. Signatures: Dispatcher [facility] Aggie Velasquez, DIE ASSEMBLER-C DIE ASSEMBLER-Stephen Nobles MD MD rn Calderon, Audri, RN RN aa5 Addison Diamond RN RN ll1 Ese Restrepo RN RN zb Corrections: (The following items were deleted from the chart) 08/20 16:52 16:52 Hemoglobin A1C ordered. [facility] EDMT 16:52 16:52 Hemoglobin A1C ordered. [facility] EDMT 19:09 18:23 08/20/2020 18:23 Discharged to Home. Impression: Nausea and vomiting. Condition zb is Stable. Forms are Medication Reconciliation Form, Thank You Letter, Antibiotic Education, Prescription Opioid Use. Follow up: Emergency Department; When: As needed; Reason: Worsening of condition. Follow up: Private Physician; When: 2 - 3 days; Reason: Recheck today's complaints, Continuance of care, Re-evaluation by your physician. kb
[2020-08-20 19:14] VITALS: TEMP 97
[2020-08-20 19:15] VITALS: O2SAT 100
[2020-08-20 19:17] VITALS: BP 110/70
== END 2020-08-20 19:09 | disposition home or self-care (01) ==
LOC: ER 14:09
DX: R11.2 Nausea with vomiting, unspecified (principal); Z91.018 Allergy to other foods
CPT/HCPCS: 96361; 85025; 80048; 36415; 80076; 81003; 83690; 96374; 99284; J7030; J2405

== ENCOUNTER 2024-12-16 18:27 | Emergency (ER) | payer BC, MEDICAID ==
--- OUTSIDE RECORDS SUMMARY | 2024-12-16 18:40 | XMS REPORT | Continuity of Care Document ---
Author Name Unknown Address [address] [facility] [address] [place] [address] [facility] Address [address] [facility] 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 Name Role Phone Leonardo Cespedes PA-C Primary Care Physician [phone] BC SKELTON Attending Clinician Unavailable DM BAILEY Attending Clinician Unavailab Sherman Loza PA-C Attending Clinician [phone] Leonardo Cespedes PA-C Attending Clinician [phone] Valerie Reddy Attending Clinician Unavailab Nelson Pastor Attending Clinician [phone] ALDO RESTREPO Attending Clinician Unavailable ALDO RESTREPO Attending Clinician Unavailable Raj Mars Attending Clinician Unavailable , Laura Mishra Attending Clinician Unavailable Ivis Mireles MD Attending Clinician [phone] IVIS MIRELES Attending Clinician Unavailable GIBSON MORTON Attending Clinician Unavailable MIKAELA ANGULO Attending Clinician Unavailable MIKAELA ANGULO Attending Clinician Unavailable Bc Skelton MD Attending Clinician [phone], [employer] Attending Clinician Chaya vailable Vaughn CALDWELL, Tori De La Vega Attending Clinician Lab, Ang - Db Attending Clinician Unavailable Sharmila Hatch Attending Clinician [phone] SHARMILA WRIGHT Attending Clinician Unavailable _[facility] Attending Clinician Unavail able Doctor Unassigned, [place] Attending Clinician U Truong Mckenzie DDS Attending Clinician [phone] TRUONG BROWN Attending Clinician Unavailchristine Packer, Adc Lab Main Attending Clinician UnavailLucia Le MD Attending Clinician [phone] LUCIA LEVINE Attending Clinician UnavailMEGAN Victor Attending Clinician Unavailable Rudi DORANTES, Megan Attending Clinician [phone] NADER MARCANO Attending Clinician Unavailable Esteban Lim MD Attending Clinician [phone] Nader Marcano MD Attending Clinician [phone], [employer] Attending Clinician Chaya vailable Jaycob Morton, Gaviota Pacheco Attending Clinician [phone] GAVIOTA SCHULZ Attending Clinician Unavailab EMILY Cali Attending Clinician Unavailable DEBRA SIMMONS Attending Clinician Unavailable Debra Simmons PA-C Attending Clinician [phone] RADIOLOGY Attending Clinician Unavailable Radiology Attending Clinician Unavailable SPRING STEVENS Attending Clinician Unavailable Nelson Holley Attending Clinician [phone] NELSON TRAMMELL Attending Clinician Unavailable LUCIA MARINELLI Attending Clinician Unav ailAbby White Attending Clinician [phone] ABBY GREWAL Attending Clinician Unavailable Tania Preston RN Attending Clinician Unavail able Emily Lopez MD Attending Clinician [phone] EMILY LOPEZ Attending Clinician Unavailable Spring Stevens MD Attending Clinician [phone] Ping Rm Attending Clinician BLAIRE TAM Attending Clinician Chaya vailable Blaire Stone Attending Clinician HILDA FARIA Attending Clinician Un available SANTANA HERNANDEZ Attending Clinician Unavailable Jj Leonardo DO Attending Clinician [phone] Santana Hernandez MD Attending Clinician [phone] Lenka Robledo PA-C Attending Clinician [phone] LENKA ROBLEDO Attending Clinician Unavailable ISAIAH FARRIS Attending Clinician UnaKATINA Quintana Attending Clinician Unavailable BC SKELTON Admitting Clinician Unavailable Valerie Reddy Admitting Clinician Unavailab ALDO Altman Admitting Clinician Unavailable ADELFO_SWHAOMC_Barry_G Admitting Clinician Unavail able NADER MARCANO Admitting Clinician Unavailable Nader Marcano MD Admitting Clinician [phone] VALERIE REDDY Admitting Clinician Unavailab EMILY Jeter Admitting Clinician Unavailable Emily Lopez MD Admitting Clinician [phone] SPRING STEVENS Admitting Clinician Unavailable SANTANA HERNANDEZ Admitting Clinician Unavailable Santana Hernandez MD Admitting Clinician [phone] Payers Payer Name Policy Type Policy Number Effective Date Expirati on Date Source [employer] [place] [employer] [id number] 2021 00:00:00 [facility] [id number] 2020 00:00:00 MEDICAID [facility] [id number] 2024 00:00:00 2024 00:00:00 [place] [id number] 2021 00:00:00 [employer]WORK [id number] 2021 00:00:00 2021 00:00:00 Problems Condition Name Condition Details Condition Category Status Onset Date Resolution Date Last Treatment Date Treating Clinician Comments Source Hemorrhagi c cyst of ovary Hemorrhagi c Cyst of Ovary Problem Active 7-13 00:00: 00 [facility] Lower abdominal pain Lower Abdominal Pain Problem Active 7-13 00:00: 00 [facility] Asthma Asthma Disease Active 3-24 00:00: 00 [facility] Depressive disorder Depressive disorder Disease Active 3-24 00:00: 00 [facility] Polycystic ovary syndrome Polycystic ovary syndrome Disease Active 3-24 00:00: 00 [facility] Blood in urine Blood in Urine Problem Active 3-22 00:00: 00 [facility] Acute low back pain Acute Low Back Pain Problem Active 3-22 00:00: 00 [facility] Bleeding from nose Bleeding from Nose Problem Active 3-22 00:00: 00 [facility] Wheezing Wheezing Problem Active 3-22 00:00: 00 [facility] Contusion Contusion Problem Active 3- 00:00: 00 [facility] Nausea Nausea Problem Active 9-21 00:00: 00 [facility] Abdominal bloating Abdominal Bloating Problem Active 0 9-21 00:00: 00 [facility] Abdominal pain Abdominal Pain Problem Active 9-21 00:00: 00 [facility] Pain in pelvis Pain in Pelvis Problem Active 3-27 00:00: 00 [facility] Abnormal uterine bleeding Abnormal Uterine Bleeding Problem Active 0 3-02 00:00: 00 [facility] PONV (postopera tive nausea and vomiting) PONV (postopera tive nausea and vomiting) Disease Recurre nce 0 4-19 00:00: 00 [facility] Bright red blood per rectum Bright red blood per rectum Disease Active 0 1-29 00:00: 00 [facility] RLQ abdominal pain RLQ abdominal pain Disease Active 1-26 00:00: 00 [facility] 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 Active ME HIVES 09-21 00:00: 00 [facility] No Known Drug Allergie s DA Active U 18 00:00: 00 [facility] FA Active ME HIVES 18 00:00: 00 [facility] FA Active ME HIVES 06-29 00:00: 00 [facility] No Known Drug Allergie s DA Active U 06-29 00:00: 00 [facility] FA Active SV ANAPHYLAXIS 2023-05 00:00: 00 [facility] PE Food Active Hives 2015-05 00:00: 00 [facility] Cantalou pe Propensi ty to adverse reaction s Active Shortness of Breath 2015-05 00:00: 00 [facility] CANTALOU PE Food Active Med Hives 05-20 00:00: 00 [facility] TREE NUTS Food Active Med Hives 05-20 00:00: 00 [facility] [place] pe Food Allergy Active Shortness of Breath 05-20 00:00: 00 [facility] Tree Nuts Food Allergy Active Hives 05-20 00:00: 00 [facility] AZTHROMY GEOFF DA Active U HIVES 09-07 00:00: 00 [facility] No Known Contrast Allergie s DA Active U 09-07 00:00: 00 [facility] No Known Food Allergie s DA Active U 09-07 00:00: 00 [facility] [place] No Known Other Allergie s DA Active U 09-07 00:00: 00 [facility] [place] Cantalo pe Allergy to substanc e Active Moderate severity Hives 05-21 00:00: 00 [facility] PE DRUG INGREDI Active Med Hives 05-21 00:00: 00 [facility] Cantalou pe Drug Allergy Active Hives 05-21 00:00: 00 [facility] Family History Family Member Diagnosis Comments Start Date Stop Date Sourc e Natural father No Significant Medical Problems [facility] Maternal Aunt Asthma [facility] Maternal grandmother Arthritis [facility] Maternal grandmother Heart [facility] Maternal grandmother High cholesterol [facility] Maternal grandmother Hypertension [facility] Maternal Uncle [facility] Natural mother No Significant Medical Problems [facility] Other defects [facility] Paternal Aunt Diabetes [facility] Paternal grandmother Arthritis [facility] Paternal grandmother Heart [facility] Paternal grandmother High cholesterol [facility] Paternal grandmother Hypertension [facility] Paternal Uncle Depression [facility] Paternal Uncle Mental retardation [facility] Paternal Uncle [facility]rological [facility] Paternal Uncle Psychiatry [facility] Family member Breast Cancer [facility] Family member Cancer [facility] Family member Colon Cancer [facility] Family member Genetic [facility] Family member Osteoporosis [facility] Family member Ovarian Cancer [facility] Family member [facility] Social History Social Habit Start Date Stop Date Quantity Comments Source History SDOH Alcohol Frequency [facility] History SDOH Alcohol Std Drinks [facility] History SDOH Alcohol Binge [facility] Gender identity [facility] Sexual orientation [facility] ASSERTION Not [facility] History of Occupation [facility] Alcoholic beverage intake 2024-12-13 00:00:00 2024-12-13 00:00:00 Current drinker of alcohol (finding) [facility] History of Social function 2023-09-21 00:00:00 2023-09-21 00:00:00 [facility] Alcohol intake 2023-03-14 00:00:00 2023-03-14 00:00:00 Current drinker of alcohol (finding) [facility] Tobacco use and exposure 2022-11-11 00:00:00 2022-11-11 00:00:00 Smokeless tobacco non-user [facility] Exposure to SARS-CoV-2 (event) 2022-10-17 00:00:00 2022-10-27 23:35:00 Not sure [facility] Alcohol Comment 2021-01-01 00:00:00 2021-01-01 00:00:00 occassionally [facility] Sex assigned at 2000 00:00:00 2000 00:00:00 [facility] Smoking Status Start Date Stop Date Source Never smoked tobacco [facility] Medications Ordered Medication Name Filled Medication Name Start Date Stop Date Current Medication? Ordering Clinician Indication Dosage Frequency Signature (SIG) Comments Components Source amoxicillin 875 mg tablet 10-30 00:00: 00 11-07 04:59 :00 Yes [id number] 875mg Take 1 tablet by mouth in the morning and 1 tablet in the evening. Do all this for 7 days. [facility] iopamidol (ISOVUE 370-500 mL) injection 60 mL 08-17 17:30: 00 08-17 17:45 :00 No [id number] 60mL 60 mL, Intravenou s, ONCE, 1 dose, On Tue08/17/24 at 1245, Routine [facility] NaCl 0.9% (NS) bolus infusion 500 mL 08-17 15:15: 00 08-17 15:26 :00 No 500mL at 999 mL/hr, 500 mL, IV Infusion, ONCE, 1 dose, On Tue08/17/24 at 1015, ERUM [facility] acetaminoph en (TYLENOL) tablet 650 mg 08-17 13:19: 00 08-17 13:56 :00 No 650mg 650 mg, Oral, ONCE, 1 dose, On Tue08/17/24 at 0830, ERUM [facility] neomycin-po lymyxin-hyd rocortisone 3.5-10,000- 1 mg/mL-unit/ mL-% otic susp 11-06 00:00: 00 11-17 04:59 :00 No [id number] 4[drp] Place 4 Drops in left ear 4 (four) times daily for 10 days. [facility] albuterol 90 mcg/actuati on inhaler 09-20 00:00: 00 Yes [id number] 2{puff} Inhale 2 Puffs every 4 (four) hours as needed for Wheezing. [facility] EPINEPHrine (EPIPEN 2-TRINA) 0.3 mg/0.3 mL injection 09-20 00:00: 00 Yes [id number] Inject 0.3 mg IM x 1 for anaphylaxi s allergic reaction [facility] ondansetron (ZOFRAN) 4 mg tablet 2022-05 00:00: 00 09-12 00:00 :00 No [id number] 4mg Take 1 tablet by mouth every 8 (eight) hours. [facility] acetaminoph en-codeine 300-30 mg tablet 2022-05 00:00: 00 03-14 00:00 :00 No [id number] 1{tbl} Take 1 tablet by mouth every 6 (six) hours as needed for Pain (scale 7-10) for up to 7 days. Indication s: acute pain [facility] chlorhexidi ne 0.12 % mouthwash 2022-05 00:00: 00 03-14 00:00 :00 No [id number] 15mL Swish and spit out 15 mL in the morning and 15 mL in the evening. [facility] amoxicillin 500 mg capsule 2022-05 00:00: 00 03-14 00:00 :00 No [id number] 500mg Take 1 capsule by mouth in the morning and 1 capsule at noon and 1 capsule in the evening. [facility] HYDROcodone -acetaminop hen (NORCO) 5-325 mg tablet 2022-05 00:00: 00 03-14 00:00 :00 No [id number] 1{tbl} Take 1 tablet by mouth every 6 (six) hours as needed for Pain (scale 7-10) for up to 7 days. Indication s: acute pain [facility] ofloxacin 0.3 % otic drops 11-17 00:00: 00 Yes [id number] 5[drp] Place 5 Drops in left ear in the morning and 5 Drops in the evening. [facility] clindamycin (CLEOCIN HCL) capsule 300 mg 11-12 05:00: 00 11-15 00:59 :00 No 300mg 300 mg, Oral, TID, 9 doses, First dose on Tue11/12/22 at 0000, Last dose on Tue11/14/22 at 1400, Routine
Reason for Anti-Infec tive: Documented Infection< br>Documen rey Infection Site: Pelvic
Duration of Therapy: 7 days
Re stricted use approved by: After Hours (for ADC, CLC, LCC ONLY) [facility] nitroglycer in (NITROSTAT) sublingual tablet 0.4 mg 11-12 04:07: 38 Yes .4mg 0.4 mg, Sublingual , Q5MIN PRN, Starting on Tue11/11/22 at 2307, Until Discontinu ed, Routine, Chest pain [facility] ibuprofen (IBU) tablet 800 mg 11-12 02:33: 12 Yes 800mg 800 mg, Oral, Q8HPRN, Starting on Tue11/11/22 at 2133, Until Discontinu ed, Routine, Pain (scale 1-3), Pain (scale 4-6) [facility] ondansetron (ZOFRAN) 4 mg tablet 11-12 00:00: 00 09-12 00:00 :00 No [id number] 4mg Take 1 tablet by mouth every 8 (eight) hours as needed for Nausea and Vomiting (N/V) for up to 14 doses. [facility] traMADoL 50 mg tablet 11-12 00:00: 00 09-12 00:00 :00 No [id number] 50mg Take 1 tablet by mouth every 6 (six) hours as needed for Pain (scale 4-6) or Pain (scale 7-10) for up to 12 doses. Indication s: acute pain [facility] ibuprofen 800 mg tablet 11-12 00:00: 00 03-07 00:00 :00 No [id number] 800mg Take 1 tablet by mouth every 8 (eight) hours as needed for Pain (scale 1-3) or Pain (scale 4-6) for up to 20 doses. [facility] ondansetron (ZOFRAN (PF)) injection 4 mg 11-11 22:21: 14 Yes 4mg 4 mg, Slow IV Push, Q6HPRN, Starting on Carolee 11/11/22 at 1721, Until Discontinu ed, Routine, Nausea and Vomiting (N/V) [facility] morpHINE (2 mg/mL) injection 4 mg 11-11 22:21: 11 11-12 22:20 :11 No 4mg 4 mg, Slow IV Push, Q4HPRN, Starting on Tue11/11/22 at 1721, Until Tue11/12/22 at 1720, Routine, Pain (scale 7-10) [facility] HYDROcodone -acetaminop hen (NORCO 5) 5-325 mg tablet 1 tablet 11-11 22:21: 09 11-13 22:20 :09 No 1{tbl} 1 tablet, Oral, Q6HPRN, Starting on Carolee 11/11/22 at 1721, Until Tue11/13/22 at 1720, Routine, Pain (scale 4-6) [facility] acetaminoph en (TYLENOL) tablet 650 mg 11-11 22:21: 03 Yes 650mg 650 mg, Oral, Q6HPRN, Starting on Carolee 11/11/22 at 1721, Until Discontinu ed, Routine, Pain (scale 1-3), Temp > 38 C [facility] FENTanyl PF (SUBLIMAZE (PF)) injection 50 mcg 11-11 21:30: 00 11-11 20:50 :00 No 50ug 50 mcg, Slow IV Push, ONCE, 1 dose, On Carolee 11/11/22 at 1630, Routine [facility] metoclopram lorena HCl (REGLAN) injection 10 mg 11-11 20:45: 00 11-11 20:50 :00 No 10mg 10 mg, Slow IV Push, ONCE, 1 dose, On Carolee 11/11/22 at 1545, ERUM [facility] cefTRIAXone (ROCEPHIN) 1,000 mg in NaCl 0.9% (NS) 100 mL MINI-BAG 11-11 20:30: 00 11-11 21:37 :00 No 1000mg 1,000 mg, IV Piggyback, ONCE, 1 dose, On Carolee 11/11/22 at 1530, Administer over 30 Minutes, 100 mL
Reas on for Anti-Infec tive: Documented Infection< br>Documen rey Infection Site: Urine
D uration of Therapy: Other (see Comments) [facility] NaCl 0.9% (NS) bolus infusion 1,000 mL 11-11 19:00: 00 11-11 19:30 :00 No 1000mL at 999 mL/hr, 1,000 mL, IV Piggyback, ONCE, 1 dose, On Carolee 11/11/22 at 1400, STAT [facility] dicyclomine (BENTYL) injection 20 mg 11-11 18:30: 00 11-11 17:44 :00 No 20mg 20 mg, Intramuscu lar, ONCE NOW, 1 dose, On Carolee 11/11/22 at 1330, Routine [facility] haloperidol lactate (HALDOL) injection 2.5 mg 11-11 18:15: 00 11-11 18:15 :00 No 2.5mg 2.5 mg, Slow IV Push, ONCE, 1 dose, On Carolee 11/11/22 at 1315, STAT [facility] ketorolac (TORADOL) injection 30 mg 11-11 18:15: 00 11-11 17:43 :00 No 30mg 30 mg, Slow IV Push, ONCE NOW, 1 dose, On Carolee 11/11/22 at 1315, ERUM [facility] ondansetron (ZOFRAN (PF)) injection 8 mg 11-11 18:00: 00 11-11 17:50 :00 No 8mg 8 mg, Slow IV Push, ONCE, 1 dose, On Carolee 11/11/22 at 1300, ERUM [facility] clindamycin 150 mg capsule 11-06 00:00: 00 11-13 04:59 :00 No 800mg Take 800 mg by mouth every 8 (eight) hours. 7 days course. [facility] ciprofloxac in-dexameth asone (CIPRODEX) 0.3-0.1 % otic drops 629 00:00: 00 11-11 00:00 :00 No [id number] 4[drp] Place 4 Drops in left ear in the morning and 4 Drops in the evening. [facility] mupirocin 2 % ointment 4-11 00:00: 00 08-10 00:00 :00 No Apply pea-sized amount with a q-tip or clean finger to each nostril twice daily. [facility] albuterol 90 mcg/actuati on inhaler -22 00:00: 00 09-20 00:00 :00 No [id number] 2{puff} Inhale 2 Puffs every 4 (four) hours as needed for Wheezing or Shortness of Breath. [facility] ipratropium -albuteroL (DUONEB) 0.5 mg-3 mg(2.5 mg base)/3 mL nebulizer solution 3 mL 2021-05 20:00: 00 04-16 19:47 :00 No 3mL 3 mL, Inhalation , QID, 1 dose, First dose on Tue04/16/22 at 1400, ERUM [facility] lactated ringers IV infusion 1,000 mL 2021-05 19:30: 00 Yes 1000mL at 75 mL/hr, 1,000 mL, IV Infusion, CONTINUOUS , Starting on Tue04/16/22 at 1330, Until Discontinu ed, Routine, PACU [facility] ondansetron (ZOFRAN (PF)) injection 4 mg 2021-05 19:23: 06 04-16 19:25 :00 No 4mg 4 mg, Slow IV Push, PRN, 1 dose, Starting on Tue04/16/22 at 1323, Until Tue04/16/22 at 1325, Routine, Nausea and Vomiting (N/V), PACU [facility] water for irrigation irrigation solution 2021-05 18:17: 00 04-16 19:09 :52 No PRN, Starting on Tue04/16/22 at 1217, Until Tue04/16/22 at 1309, Routine, Intra-op [facility] simethicone (GAS RELIEF (SIMETHICON E)) 40 mg/0.6 mL drops 2021-05 18:17: 00 04-16 19:09 :52 No PRN, Starting on Tue04/16/22 at 1217, Until Tue04/16/22 at 1309, Routine, Intra-op [facility] lactated ringers IV infusion 1,000 mL 2021-05 17:15: 00 04-16 17:19 :00 No 1000mL at 42 mL/hr, 1,000 mL, IV Infusion, ONCE, 1 dose, On Tue04/16/22 at 1115, Routine, DSU Pre-op [facility] norgestimat e-ethinyl estradioL 0.25-35 mg-mcg per tablet 2021-05- 00:00: 00 07-21 00:00 :00 No [id number] 100 1{tbl} Take 1 tablet by mouth in the morning. [facility] cefTRIAXone (ROCEPHIN) injection 250 mg 2021-05 0-03 22:45: 00 02-01 21:55 :00 No [id number] 250mg [facility] doxycycline hyclate 100 mg tablet 2021-05 0-03 00:00: 00 02-16 04:59 :00 No [id number] 100mg Take 1 tablet by mouth in the morning and 1 tablet in the evening. Do all this for 14 days. [facility] metroNIDAZO LE (FLAGYL) 500 mg tablet 2021-05 0- 00:00: 00 02-16 04:59 :00 No [id number] 500mg Take 1 tablet by mouth in the morning and 1 tablet in the evening. Do all this for 14 days. [facility] polyethylen e glycol 240-22.72-6 .72 -5.84 gram solution 9-30 00:00: 00 02-01 00:00 :00 No [id number] Take as directed [facility] PARoxetine 10 mg tablet 9-26 00:00: 00 07-21 00:00 :00 No [id number] 10mg Take 1 tablet by mouth in the morning. [facility] hydrOXYzine 50 mg tablet 8-26 00:00: 00 07-21 00:00 :00 No [id number] 25mg Take 0.5 tablets by mouth 3 (three) times daily as needed for Anxiety. Start with 25 mg as needed, may take 50 mg if subtherape utic [facility] PARoxetine 10 mg tablet 8-25 00:00: 00 01-25 00:00 :00 No [id number] 10mg Take 1 tablet by mouth in the morning. [facility] busPIRone 10 mg tablet 2021- 8-25 00:00: 00 12-25 00:00 :00 No [id number] 10mg Take 1 tablet by mouth 2 (two) times daily as needed for Other (anxiety) for up to 45 days. [facility] metroNIDAZO LE (FLAGYL) 500 mg tablet 9-19 00:00: 00 12-24 00:00 :00 No [id number] 500mg Take 1 tablet by mouth 2 (two) times daily. [facility] ondansetron 4 mg disintegrat ing tablet 8-06 00:00: 00 12-24 00:00 :00 No [id number] 4mg Take 1 tablet by mouth every 8 (eight) hours as needed for Nausea and Vomiting (N/V). [facility] albuterol 90 mcg/actuati on inhaler 7-29 00:00: 00 07-21 00:00 :00 No [id number] 2{puff} Inhale 2 Puffs every 4 (four) hours as needed for Wheezing or Shortness of Breath. [facility] dicyclomine 20 mg tablet 2017-05 0-12 00:00: 00 12-24 00:00 :00 No TK 1 T PO Q 6 H PRN [facility] EPIPEN 2-TRINA 0.3 mg/0.3 mL injection 2016-05 0- 00:00: 00 09-20 00:00 :00 No as needed. [facility] levalbutero l (XOPENEX) 1.25 mg/3 mL nebulizer solution 4-21 00:00: 00 12-24 00:00 :00 No [facility] cholecalcif shahnaz (vitamin D3) 1,250 mcg (50,000 unit) capsule TAKE ONE (1) CAPSULE BY MOUTH WEEKLY. cholecalcif shahnaz (vitamin D3) 1,250 mcg (50,000 unit) capsule TAKE ONE (1) CAPSULE BY MOUTH WEEKLY. No cholecalci ferol (vitamin D3) 1,250 mcg (50,000 unit) capsule TAKE ONE (1) CAPSULE BY MOUTH WEEKLY. [facility] Endometrin 100 mg vaginal insert USE TWO (2) INSERTS IN VAGINA ONCE A DAY AT BEDTIME. Endometrin 100 mg vaginal insert USE TWO (2) INSERTS IN VAGINA ONCE A DAY AT BEDTIME. No Endometrin 100 mg vaginal insert USE TWO (2) INSERTS IN VAGINA ONCE A DAY AT BEDTIME. [facility] progesteron e micronized 200 mg capsule INSERT ONE (1) CAPSULE IN THE VAGINA AT BEDTIME. progesteron e micronized 200 mg capsule INSERT ONE (1) CAPSULE IN THE VAGINA AT BEDTIME. No progestero ne micronized 200 mg capsule INSERT ONE (1) CAPSULE IN THE VAGINA AT BEDTIME. [facility] cetirizine 10 mg tablet 10 mg by oral route. cetirizine 10 mg tablet 10 mg by oral route. No 10mg cetirizine 10 mg tablet 10 mg by oral route. [facility] ibuprofen 600 mg tablet TAKE ONE (1) TABLET(S) BY MOUTH EVERY SIX HOURS NEEDED FOR PAIN. ibuprofen 600 mg tablet TAKE ONE (1) TABLET(S) BY MOUTH EVERY SIX HOURS NEEDED FOR PAIN. No ibuprofen 600 mg tablet TAKE ONE (1) TABLET(S) BY MOUTH EVERY SIX HOURS NEEDED FOR PAIN. [facility] nifedipine ER 30 mg tablet,exte nded release 24 hr TAKE ONE (1) TABLET(S) BY MOUTH DAILY. nifedipine ER 30 mg tablet,exte nded release 24 hr TAKE ONE (1) TABLET(S) BY MOUTH DAILY. No nifedipine ER 30 mg tablet,ext ended release 24 hr TAKE ONE (1) TABLET(S) BY MOUTH DAILY. [facility] Immunizations Ordered Immunization Name Filled Immunization Name Date Status Comments Source TDAP 2024-10-30 00:00:00 Completed [facility] Flu Injectable MDCK Pres-Free (FLUCELVAX) 2024-02-23 00:00:00 Completed [facility] Influenza Virus Vaccine Quad IM 3+ YRS 2023-02-07 00:00:00 Completed [facility] Influenza Virus Vaccine Quad IM, Preserv and ABX Free 6 MO-64 YRS 2022-03-09 00:00:00 Completed [facility] Influenza Virus Vaccine Quad IM, Preserv and ABX Free 6 MO-64 YRS 2022-03-09 00:00:00 Completed [facility] Influenza Virus Vaccine Quad IM, Preserv and ABX Free 6 MO-64 YRS 2022-03-09 00:00:00 Completed [facility] Influenza Virus Vaccine Quad IM, Preserv and ABX Free 6 MO-64 YRS 2022-03-09 00:00:00 Completed [facility] Influenza Virus Vaccine Quad IM, Preserv and ABX Free 6 MO-64 YRS 2022-03-09 00:00:00 Completed [facility] Influenza Virus Vaccine Quad IM, Preserv and ABX Free 6 MO-64 YRS 2022-03-09 00:00:00 Completed [facility] Influenza Virus Vaccine Quad IM, Preserv and ABX Free 6 MO-64 YRS 2022-03-09 00:00:00 Completed [facility] Influenza Virus Vaccine Quad IM, Preserv and ABX Free 6 MO-64 YRS 2022-03-09 00:00:00 Completed [facility] Influenza Virus Vaccine Quad IM, Preserv and ABX Free 6 MO-64 YRS 2022-03-09 00:00:00 Completed [facility] Influenza Virus Vaccine Quad IM, Preserv and ABX Free 6 MO-64 YRS (FLUCELVAX) 2022-03-09 00:00:00 Completed [facility] Influenza Virus Vaccine Quad IM, Preserv and ABX Free 6 MO-64 YRS (FLUCELVAX) 2022-03-09 00:00:00 Completed [facility] SARS-COV-2 COVID-19 PFIZER VACCINE 2021-01-16 00:00:00 Completed [facility] SARS-COV-2 COVID-19 PFIZER VACCINE 2021-01-16 00:00:00 Completed [facility] SARS-COV-2 COVID-19 PFIZER VACCINE 2021-01-16 00:00:00 Completed [facility] SARS-COV-2 COVID-19 PFIZER VACCINE 2021-01-16 00:00:00 Completed [facility] SARS-COV-2 COVID-19 PFIZER VACCINE 2021-01-16 00:00:00 Completed [facility] SARS-COV-2 COVID-19 PFIZER VACCINE 2021-01-16 00:00:00 Completed [facility] SARS-COV-2 COVID-19 PFIZER VACCINE 2021-01-16 00:00:00 Completed [facility] SARS-COV-2 COVID-19 PFIZER VACCINE 2021-01-16 00:00:00 Completed [facility] SARS-COV-2 COVID-19 PFIZER VACCINE 2021-01-16 00:00:00 Completed [facility] SARS-COV-2 COVID-19 PFIZER VACCINE 2021-01-16 00:00:00 Completed [facility] SARS-COV-2 COVID-19 PFIZER VACCINE 2021-01-16 00:00:00 Completed [facility] SARS-COV-2 COVID-19 PFIZER VACCINE 2020-12-26 00:00:00 Completed [facility] SARS-COV-2 COVID-19 PFIZER VACCINE 2020-12-26 00:00:00 Completed [facility] SARS-COV-2 COVID-19 PFIZER VACCINE 2020-12-26 00:00:00 Completed [facility] SARS-COV-2 COVID-19 PFIZER VACCINE 2020-12-26 00:00:00 Completed [facility] SARS-COV-2 COVID-19 PFIZER VACCINE 2020-12-26 00:00:00 Completed [facility] SARS-COV-2 COVID-19 PFIZER VACCINE 2020-12-26 00:00:00 Completed [facility] SARS-COV-2 COVID-19 PFIZER VACCINE 2020-12-26 00:00:00 Completed [facility] SARS-COV-2 COVID-19 PFIZER VACCINE 2020-12-26 00:00:00 Completed [facility] SARS-COV-2 COVID-19 PFIZER VACCINE 2020-12-26 00:00:00 Completed [facility] SARS-COV-2 COVID-19 PFIZER VACCINE 2020-12-26 00:00:00 Completed [facility] SARS-COV-2 COVID-19 PFIZER VACCINE 2020-12-26 00:00:00 Completed [facility] HEPLISAV HEP B, ADULT 2 DOSE, IM 2020-06-04 00:00:00 Completed HEP B, Adult Dosage 2020-05-01 00:00:00 Completed [facility] Influenza, split virus, trivalent, PF (AFLURIA/FLUARIX/FLU LAVAL/FLUZONE) 2017-02-10 00:00:00 Completed [facility] Influenza, split virus, trivalent, PF (AFLURIA/FLUARIX/FLU LAVAL/FLUZONE) 2016-01-26 00:00:00 Completed [facility] Influenza, split virus, trivalent, PF (AFLURIA/FLUARIX/FLU LAVAL/FLUZONE) 2015-02-11 00:00:00 Completed [facility] Influenza, split virus, trivalent, PF (AFLURIA/FLUARIX/FLU LAVAL/FLUZONE) 2014-06-19 00:00:00 Completed [facility] Influenza, split virus, trivalent, preservative (3+ Yrs[facility] 2013-04-20 00:00:00 Completed [facility] Influenza, split virus, trivalent, preservative (3+ Yrs) (Afluria) 2012-03-21 00:00:00 Completed [facility] Influenza, split virus, trivalent, PF (AFLURIA/FLUARIX/FLU LAVAL/FLUZONE) 2012-03-21 00:00:00 Completed [facility] HPV 2011-08-04 00:00:00 Completed [facility] Influenza, split virus, trivalent, preservative (3+ Yrs) [facility] 2011-02-24 00:00:00 Completed [facility] Influenza, split virus, trivalent, PF (AFLURIA/FLUARIX/FLU LAVAL/FLUZONE) 2011-02-24 00:00:00 Completed [facility] HPV 2011-02-24 00:00:00 Completed [facility] HPV 2010-12-23 00:00:00 Completed [facility] Meningococcal Polysaccharide (groups A, C, Y and W-135) conjugate vaccine (MCV4P) 2010-12-23 00:00:00 Completed [facility] TDAP 2010-12-23 00:00:00 Completed [facility] Influenza, split virus, trivalent, preservative (3+ Yrs) [facility] 2010-06-16 00:00:00 Completed [facility] Influenza, Live, Trivalent, Intranasal (FLUMIST) 2010-02-02 00:00:00 Completed [facility] Influenza, split virus, trivalent, preservative (3+ Yrs) (Afluria) 2009-01-16 00:00:00 Completed [facility] Influenza, split virus, trivalent, PF (AFLURIA/FLUARIX/FLU LAVAL/FLUZONE) 2009-01-16 00:00:00 Completed [facility] Influenza, split virus, trivalent, PF (AFLURIA/FLUARIX/FLU LAVAL/FLUZONE) 2007-02-23 00:00:00 Completed [facility] HEPATITIS A 2007-02-23 00:00:00 Completed [facility] Varicella (varivax)(chicken pox) 2007-02-23 00:00:00 Completed [facility] HEPATITIS A 2005-10-28 00:00:00 Completed [facility] DTaP, Unspecified Formulation 2004-12-28 00:00:00 Completed [facility] MMR 2004-12-28 00:00:00 Completed [facility] IPV 2004-12-28 00:00:00 Completed [facility] DTaP, Unspecified Formulation 2003-10-31 00:00:00 Completed [facility] Heamophilus Influenza B 2003-10-31 00:00:00 Completed [facility] MMR 2003-10-31 00:00:00 Completed [facility] IPV 2003-10-31 00:00:00 Completed [facility] DTaP, Unspecified Formulation 2000-11-30 00:00:00 Completed [facility] Heamophilus Influenza B 2000-11-30 00:00:00 Completed [facility] IPV 2000-11-30 00:00:00 Completed [facility] Hep B, Adol or Pedi Dosage 2000-10-26 00:00:00 Completed [facility] MMR 2000-10-26 00:00:00 Completed [facility] Varicella (varivax)(chicken pox) 2000-10-26 00:00:00 Completed [facility] DTaP, Unspecified Formulation 2000-05-08 00:00:00 Completed [facility] Heamophilus Influenza B 2000-05-08 00:00:00 Completed [facility] Hep B, Adol or Pedi Dosage 2000-02-12 00:00:00 Completed [facility] Heamophilus Influenza B 2000-02-12 00:00:00 Completed [facility] DTaP, Unspecified Formulation 2000-01-13 00:00:00 Completed [facility] IPV 2000-01-13 00:00:00 Completed [facility] Heamophilus Influenza B 1999 00:00:00 Completed [facility] Hep B, Adol or Pedi Dosage 1999 00:00:00 Completed [facility] DTaP, Unspecified Formulation 1999 00:00:00 Completed [facility] IPV 1999 00:00:00 Completed [facility] Hep B, Adol or Pedi Dosage 1999 00:00:00 Completed [facility] SARS-COV-2 COVID-19 PFIZER VACCINE Unknown Completed [facility] Influenza Virus Vaccine Quad IM, Preserv and ABX Free 6 MO-64 YRS (FLUCELVAX) Unknown Completed [facility] SARS-COV-2 COVID-19 PFIZER VACCINE Unknown Completed [facility] Influenza Virus Vaccine Quad IM, Preserv and ABX Free 6 MO-64 YRS (FLUCELVAX) Unknown Completed [facility] SARS-COV-2 COVID-19 PFIZER VACCINE Unknown Completed [facility] Influenza Virus Vaccine Quad IM, Preserv and ABX Free 6 MO-64 YRS (FLUCELVAX) Unknown Completed [facility] SARS-COV-2 COVID-19 PFIZER VACCINE Unknown Completed [facility] SARS-COV-2 COVID-19 PFIZER VACCINE Unknown Completed [facility] SARS-COV-2 COVID-19 PFIZER VACCINE Unknown Completed [facility] SARS-COV-2 COVID-19 PFIZER VACCINE Unknown Completed [facility] SARS-COV-2 COVID-19 PFIZER VACCINE Unknown Completed [facility] Influenza Virus Vaccine Quad IM, Preserv and ABX Free 6 MO-64 YRS (FLUCELVAX) Unknown Completed [facility] SARS-COV-2 COVID-19 PFIZER VACCINE Unknown Completed [facility] Influenza Virus Vaccine Quad IM, Preserv and ABX Free 6 MO-64 YRS (FLUCELVAX) Unknown Completed [facility] SARS-COV-2 COVID-19 PFIZER VACCINE Unknown Completed [facility] Influenza Virus Vaccine Quad IM, Preserv and ABX Free 6 MO-64 YRS (FLUCELVAX) Unknown Completed [facility] SARS-COV-2 COVID-19 PFIZER VACCINE Unknown Completed [facility] Influenza Virus Vaccine Quad IM, Preserv and ABX Free 6 MO-64 YRS (FLUCELVAX) Unknown Completed [facility] SARS-COV-2 COVID-19 PFIZER VACCINE Unknown Completed [facility] Influenza Virus Vaccine Quad IM, Preserv and ABX Free 6 MO-64 YRS (FLUCELVAX) Unknown Completed [facility] SARS-COV-2 COVID-19 PFIZER VACCINE Unknown Completed [facility] Influenza Virus Vaccine Quad IM, Preserv and ABX Free 6 MO-64 YRS (FLUCELVAX) Unknown Completed [facility] SARS-COV-2 COVID-19 PFIZER VACCINE Unknown Completed [facility] Influenza Virus Vaccine Quad IM, Preserv and ABX Free 6 MO-64 YRS (FLUCELVAX) Unknown Completed [facility] SARS-COV-2 COVID-19 PFIZER VACCINE Unknown Completed [facility] Influenza Virus Vaccine Quad IM, Preserv and ABX Free 6 MO-64 YRS (FLUCELVAX) Unknown Completed [facility] SARS-COV-2 COVID-19 PFIZER VACCINE Unknown Completed [facility] Influenza Virus Vaccine Quad IM, Preserv and ABX Free 6 MO-64 YRS (FLUCELVAX) Unknown Completed [facility] SARS-COV-2 COVID-19 PFIZER VACCINE Unknown Completed [facility] Influenza Virus Vaccine Quad IM, Preserv and ABX Free 6 MO-64 YRS (FLUCELVAX) Unknown Completed [facility] SARS-COV-2 COVID-19 PFIZER VACCINE Unknown Completed [facility] Influenza Virus Vaccine Quad IM, Preserv and ABX Free 6 MO-64 YRS (FLUCELVAX) Unknown Completed [facility] SARS-COV-2 COVID-19 PFIZER VACCINE Unknown Completed [facility] Influenza Virus Vaccine Quad IM, Preserv and ABX Free 6 MO-64 YRS (FLUCELVAX) Unknown Completed [facility] SARS-COV-2 COVID-19 PFIZER VACCINE Unknown Completed [facility] Influenza Virus Vaccine Quad IM, Preserv and ABX Free 6 MO-64 YRS (FLUCELVAX) Unknown Completed [facility] SARS-COV-2 COVID-19 PFIZER VACCINE Unknown Completed [facility] Influenza Virus Vaccine Quad IM, Preserv and ABX Free 6 MO-64 YRS (FLUCELVAX) Unknown Completed [facility] Influenza Virus Vaccine Quad IM, Preserv and ABX Free 6 MO-64 YRS (FLUCELVAX) Unknown Completed [facility] SARS-COV-2 COVID-19 PFIZER VACCINE Unknown Completed [facility] Influenza Virus Vaccine Quad IM, Preserv and ABX Free 6 MO-64 YRS (FLUCELVAX) Unknown Completed [facility] SARS-COV-2 COVID-19 PFIZER VACCINE Unknown Completed [facility] SARS-COV-2 COVID-19 PFIZER VACCINE Unknown Completed [facility] Influenza Virus Vaccine Quad IM, Preserv and ABX Free 6 MO-64 YRS (FLUCELVAX) Unknown Completed [facility] SARS-COV-2 COVID-19 PFIZER VACCINE Unknown Completed [facility] Influenza Virus Vaccine Quad IM, Preserv and ABX Free 6 MO-64 YRS (FLUCELVAX) Unknown Completed [facility] DTaP, Unspecified Formulation Unknown Completed [facility] Influenza Virus Vaccine - Whole Unknown Completed [facility] Flu Trivalent Unknown Completed [facility] Influenza Virus Vaccine Nasal Unknown Completed [facility] HEPLISAV HEP B, ADULT 2 DOSE, IM Unknown Completed [facility] HEPATITIS A Unknown Completed [facility] HEP B, Adult Dosage Unknown Completed [facility] Hep B, Adol or Pedi Dosage Unknown Completed [facility] HIB 4 Dose Schedule Unknown Completed [facility] HPV Unknown Completed [facility] Meningococcal Polysaccharide (groups A, C, Y and W-135) conjugate vaccine (MCV4P) Unknown Completed [facility] MMR Unknown Completed [facility] IPV Unknown Completed [facility] Varicella (varivax)(chicken pox) Unknown Completed [facility] TDAP Unknown Completed [facility] Influenza Virus Vaccine Quad .5 mL IM 6+ MO (FLUZONE/FLULAVAL/FL UARIX) Unknown Completed [facility] Influenza Virus Vaccine Quad IM, Preserv and ABX Free 6 MO-64 YRS (FLUCELVAX) Unknown Completed [facility] Influenza Virus Vaccine Nasal Unknown Completed [facility] HEPLISAV HEP B, ADULT 2 DOSE, IM Unknown Completed [facility] HEP B, Adult Dosage Unknown Completed [facility] Meningococcal Polysaccharide (groups A, C, Y and W-135) conjugate vaccine (MCV4P) Unknown Completed [facility] TDAP Unknown Completed [facility] Influenza Virus Vaccine Quad .5 mL IM 6+ MO (FLUZONE/FLULAVAL/FL UARIX) Unknown Completed [facility] SARS-COV-2 COVID-19 PFIZER VACCINE Unknown Completed [facility] DTaP, Unspecified Formulation Unknown Completed [facility] Influenza Virus Vaccine - Whole Unknown Completed [facility] Flu Trivalent Unknown Completed [facility] HEPATITIS A Unknown Completed [facility] Hep B, Adol or Pedi Dosage Unknown Completed [facility] HIB 4 Dose Schedule Unknown Completed [facility] HPV Unknown Completed [facility] MMR Unknown Completed [facility] IPV Unknown Completed [facility] Varicella (varivax)(chicken pox) Unknown Completed [facility] SARS-COV-2 COVID-19 PFIZER VACCINE Unknown Completed [facility] Influenza Virus Vaccine Quad IM, Preserv and ABX Free 6 MO-64 YRS (FLUCELVAX) Unknown Completed [facility] DTaP, Unspecified Formulation Unknown Completed [facility] Influenza Virus Vaccine - Whole Unknown Completed [facility] Flu Trivalent Unknown Completed [facility] Influenza Virus Vaccine Nasal Unknown Completed [facility] HEPLISAV HEP B, ADULT 2 DOSE, IM Unknown Completed [facility] HEPATITIS A Unknown Completed [facility] HEP B, Adult Dosage Unknown Completed [facility] Hep B, Adol or Pedi Dosage Unknown Completed [facility] HIB 4 Dose Schedule Unknown Completed [facility] HPV Unknown Completed [facility] Meningococcal Polysaccharide (groups A, C, Y and W-135) conjugate vaccine (MCV4P) Unknown Completed [facility] MMR Unknown Completed [facility] IPV Unknown Completed [facility] Varicella (varivax)(chicken pox) Unknown Completed [facility] TDAP Unknown Completed [facility] Influenza Virus Vaccine Quad .5 mL IM 6+ MO (FLUZONE/FLULAVAL/FL UARIX) Unknown Completed [facility] SARS-COV-2 COVID-19 PFIZER VACCINE Unknown Completed [facility] Influenza Virus Vaccine Quad IM, Preserv and ABX Free 6 MO-64 YRS (FLUCELVAX) Unknown Completed [facility] DTaP, Unspecified Formulation Unknown Completed [facility] Influenza Virus Vaccine - Whole Unknown Completed [facility] Flu Trivalent Unknown Completed [facility] Influenza Virus Vaccine Nasal Unknown Completed [facility] HEPLISAV HEP B, ADULT 2 DOSE, IM Unknown Completed [facility] HEPATITIS A Unknown Completed [facility] HEP B, Adult Dosage Unknown Completed [facility] Hep B, Adol or Pedi Dosage Unknown Completed [facility] HIB 4 Dose Schedule Unknown Completed [facility] HPV Unknown Completed [facility] Meningococcal Polysaccharide (groups A, C, Y and W-135) conjugate vaccine (MCV4P) Unknown Completed [facility] MMR Unknown Completed [facility] IPV Unknown Completed [facility] Varicella (varivax)(chicken pox) Unknown Completed [facility] TDAP Unknown Completed [facility] Influenza Virus Vaccine Quad .5 mL IM 6+ MO (FLUZONE/FLULAVAL/FL UARIX) Unknown Completed [facility] SARS-COV-2 COVID-19 PFIZER VACCINE Unknown Completed [facility] Influenza Virus Vaccine Quad IM, Preserv and ABX Free 6 MO-64 YRS (FLUCELVAX) Unknown Completed [facility] DTaP, Unspecified Formulation Unknown Completed [facility] Influenza Virus Vaccine - Whole Unknown Completed [facility] Flu Trivalent Unknown Completed [facility] Influenza Virus Vaccine Nasal Unknown Completed [facility] HEPLISAV HEP B, ADULT 2 DOSE, IM Unknown Completed [facility] HEPATITIS A Unknown Completed [facility] HEP B, Adult Dosage Unknown Completed [facility] Hep B, Adol or Pedi Dosage Unknown Completed [facility] HIB 4 Dose Schedule Unknown Completed [facility] HPV Unknown Completed [facility] Meningococcal Polysaccharide (groups A, C, Y and W-135) conjugate vaccine (MCV4P) Unknown Completed [facility] MMR Unknown Completed [facility] IPV Unknown Completed [facility] Varicella (varivax)(chicken pox) Unknown Completed [facility] TDAP Unknown Completed [facility] Influenza Virus Vaccine Quad .5 mL IM 6+ MO (FLUZONE/FLULAVAL/FL UARIX) Unknown Completed [facility] SARS-COV-2 COVID-19 PFIZER VACCINE Unknown Completed [facility] Influenza Virus Vaccine Quad IM, Preserv and ABX Free 6 MO-64 YRS (FLUCELVAX) Unknown Completed [facility] DTaP, Unspecified Formulation Unknown Completed [facility] Influenza Virus Vaccine - Whole Unknown Completed [facility] Flu Trivalent Unknown Completed [facility] Influenza Virus Vaccine Nasal Unknown Completed [facility] HEPLISAV HEP B, ADULT 2 DOSE, IM Unknown Completed [facility] HEPATITIS A Unknown Completed [facility] HEP B, Adult Dosage Unknown Completed [facility] Hep B, Adol or Pedi Dosage Unknown Completed [facility] HIB 4 Dose Schedule Unknown Completed [facility] HPV Unknown Completed [facility] Meningococcal Polysaccharide (groups A, C, Y and W-135) conjugate vaccine (MCV4P) Unknown Completed [facility] MMR Unknown Completed [facility] IPV Unknown Completed [facility] Varicella (varivax)(chicken pox) Unknown Completed [facility] TDAP Unknown Completed [facility] Influenza Virus Vaccine Quad .5 mL IM 6+ MO (FLUZONE/FLULAVAL/FL UARIX) Unknown Completed [facility] SARS-COV-2 COVID-19 PFIZER VACCINE Unknown Completed [facility] Influenza Virus Vaccine Quad IM, Preserv and ABX Free 6 MO-64 YRS (FLUCELVAX) Unknown Completed [facility] DTaP, Unspecified Formulation Unknown Completed [facility] Influenza Virus Vaccine - Whole Unknown Completed [facility] Flu Trivalent Unknown Completed [facility] Influenza Virus Vaccine Nasal Unknown Completed [facility] HEPLISAV HEP B, ADULT 2 DOSE, IM Unknown Completed [facility] HEPATITIS A Unknown Completed [facility] HEP B, Adult Dosage Unknown Completed [facility] Hep B, Adol or Pedi Dosage Unknown Completed [facility] HIB 4 Dose Schedule Unknown Completed [facility] HPV Unknown Completed [facility] Meningococcal Polysaccharide (groups A, C, Y and W-135) conjugate vaccine (MCV4P) Unknown Completed [facility] MMR Unknown Completed [facility] IPV Unknown Completed [facility] Varicella (varivax)(chicken pox) Unknown Completed [facility] TDAP Unknown Completed [facility] Influenza Virus Vaccine Quad .5 mL IM 6+ MO (FLUZONE/FLULAVAL/FL UARIX) Unknown Completed [facility] SARS-COV-2 COVID-19 PFIZER VACCINE Unknown Completed [facility] Influenza Virus Vaccine Quad IM, Preserv and ABX Free 6 MO-64 YRS (FLUCELVAX) Unknown Completed [facility] DTaP, Unspecified Formulation Unknown Completed [facility] Influenza Virus Vaccine - Whole Unknown Completed [facility] Flu Trivalent Unknown Completed [facility] Influenza Virus Vaccine Nasal Unknown Completed [facility] HEPLISAV HEP B, ADULT 2 DOSE, IM Unknown Completed [facility] HEPATITIS A Unknown Completed [facility] HEP B, Adult Dosage Unknown Completed [facility] Hep B, Adol or Pedi Dosage Unknown Completed [facility] HIB 4 Dose Schedule Unknown Completed [facility] HPV Unknown Completed [facility] Meningococcal Polysaccharide (groups A, C, Y and W-135) conjugate vaccine (MCV4P) Unknown Completed [facility] MMR Unknown Completed [facility] IPV Unknown Completed [facility] Varicella (varivax)(chicken pox) Unknown Completed [facility] TDAP Unknown Completed [facility] Influenza Virus Vaccine Quad .5 mL IM 6+ MO (FLUZONE/FLULAVAL/FL UARIX) Unknown Completed [facility] Influenza, injectable, MDCK, preservative free, quadrivalent - ML Influenza, injectable, MDCK, preservative free, quadrivalent - ML Unknown Completed [facility] COVID-19, mRNA, LNP-S, PF, 30 mcg/0.3 mL dose ([facility]) - ML COVID-19, mRNA, LNP-S, PF, 30 mcg/0.3 mL dose ([facility]) - ML Unknown Completed [facility] HepB-CpG - ML HepB-CpG - ML Unknown Completed [facility] Hep B, adult - ML Hep B, adult - ML Unknown Completed [facility] influenza, seasonal, injectable, preservative free - ML influenza, seasonal, injectable, preservative free - ML Unknown Completed [facility] influenza, seasonal, injectable - ML influenza, seasonal, injectable - ML Unknown Completed [facility] HPV, quadrivalent - ML HPV, quadrivalent - ML Unknown Completed [facility] meningococcal MCV4P - ML meningococcal MCV4P - ML Unknown Completed [facility] Tdap - ML Tdap - ML Unknown [facility], live, intranasal - ML influenza, live, intranasal - ML Unknown Completed [facility] Hep A, ped/adol, 2 dose - ML Hep A, ped/adol, 2 dose - ML Unknown Completed [facility] varicella - ML varicella - ML Unknown Completed [facility] DTaP, unspecified formulation - ML DTaP, unspecified formulation - ML Unknown Completed [facility] MMR - ML MMR - ML Unknown [facility] ical IPV - ML IPV - ML Unknown Completed [facility] ical Hib (PRP-T) - ML Hib (PRP-T) - ML Unknown Completed [facility] Hep B, adolescent or pediatric - ML Hep B, adolescent or pediatric - ML Unknown Completed [facility] Influenza, injectable, MDCK, preservative free Influenza, injectable, MDCK, preservative free Unknown Completed [facility] influenza, injectable, quadrivalent, preservative free influenza, injectable, quadrivalent, preservative free Unknown Completed [facility] Vital Signs Vital Name Observation Time Observation Value Comments S ource Body temperature 2024-12-13 14:41:00 36.28 Kristen [facility] Body height 2024-12-13 14:41:00 165.1 cm [facility] Body weight 2024-12-13 14:41:00 86.41 kg [facility] BMI 2024-12-13 14:41:00 31.70 kg/m2 [facility] Height 2024-11-30 00:00:00 62 [in_i] [facility] Body Weight 2024-11-30 00:00:00 192 [lb_av] [facility] BP Diastolic 2024-11-30 00:00:00 105 mm[Hg] [facility] BMI (Body Mass Index) 2024-11-30 00:00:00 35.1 kg/m2 [facility] BP Systolic 2024-11-30 00:00:00 158 mm[Hg] [facility] Systolic blood pressure 2024-11-21 22:39:00 130 mm[Hg] [facility] Diastolic blood pressure 2024-11-21 22:39:00 87 mm[Hg] [facility] Heart rate 2024-11-21 22:38:00 126 /min [facility] Body temperature 2024-11-21 22:38:00 36.67 Kristen [facility] Respiratory rate 2024-11-21 22:38:00 18 /min [facility] Body height 2024-11-21 22:38:00 165.1 cm [facility] Body weight 2024-11-21 22:38:00 87.998 kg [facility] BMI 2024-11-21 22:38:00 32.28 kg/m2 [facility] Oxygen saturation in Arterial blood by Pulse oximetry 2024-11-21 22:38:00 100 /min [facility] BP Systolic 2024-11-08 00:00:00 151 mm[Hg] [facility] BP Diastolic 2024-11-08 00:00:00 100 mm[Hg] [facility] Height 2024-11-08 00:00:00 62 [in_i] [facility] Body Weight 2024-11-08 00:00:00 210 [lb_av] [facility] BP Diastolic 2024-11-01 00:00:00 94 mm[Hg] [facility] Body Weight 2024-11-01 00:00:00 211 [lb_av] [facility] BP Systolic 2024-11-01 00:00:00 136 mm[Hg] [facility] BMI (Body Mass Index) 2024-11-01 00:00:00 38.6 kg/m2 [facility] Height 2024-11-01 00:00:00 62 [in_i] [facility] Systolic blood pressure 2024-10-30 18:13:00 124 mm[Hg] [facility] Diastolic blood pressure 2024-10-30 18:13:00 87 mm[Hg] [facility] Heart rate 2024-10-30 18:13:00 129 /min [facility] Body temperature 2024-10-30 18:13:00 36.67 Kristen [facility] Body height 2024-10-30 18:13:00 165.1 cm [facility] Body weight 2024-10-30 18:13:00 94.62 kg [facility] BMI 2024-10-30 18:13:00 34.71 kg/m2 [facility] Oxygen saturation in Arterial blood by Pulse oximetry 2024-10-30 18:13:00 98 /min [facility] BP Diastolic 2024-09-27 00:00:00 84 mm[Hg] [facility] Body Weight 2024-09-27 00:00:00 206 [lb_av] [facility] BP Systolic 2024-09-27 00:00:00 128 mm[Hg] [facility] Height 2024-09-21 00:00:00 62 [in_i] [facility] BP Systolic 2024-09-21 00:00:00 156 mm[Hg] [facility] Body Weight 2024-09-21 00:00:00 208 [lb_av] [facility] BP Diastolic 2024-09-21 00:00:00 90 mm[Hg] [facility] BMI (Body Mass Index) 2024-09-21 00:00:00 38.2 kg/m2 [facility] Body Weight 2024-09-07 00:00:00 206 [lb_av] [facility] BP Diastolic 2024-09-07 00:00:00 84 mm[Hg] [facility] BMI (Body Mass Index) 2024-09-07 00:00:00 37.8 kg/m2 [facility] BP Systolic 2024-09-07 00:00:00 138 mm[Hg] [facility] Height 2024-09-07 00:00:00 62 [in_i] [facility] BP Systolic 2024-08-24 00:00:00 134 mm[Hg] [facility] Body Weight 2024-08-24 00:00:00 205 [lb_av] [facility] Height 2024-08-24 00:00:00 62 [in_i] [facility] BP Diastolic 2024-08-24 00:00:00 85 mm[Hg] [facility] Systolic blood pressure 2024-08-17 18:00:00 125 mm[Hg] [facility] Diastolic blood pressure 2024-08-17 18:00:00 82 mm[Hg] [facility] Heart rate 2024-08-17 18:00:00 122 /min [facility] Respiratory rate 2024-08-17 18:00:00 16 /min [facility] Oxygen saturation in Arterial blood by Pulse oximetry 2024-08-17 18:00:00 100 /min [facility] Body temperature 2024-08-17 13:06:00 36.78 Kristen [facility] Body height 2024-08-17 13:06:00 165.1 cm [facility] Body weight 2024-08-17 13:06:00 90.719 kg [facility] BMI 2024-08-17 13:06:00 33.28 kg/m2 [facility] BP Diastolic 2024-07-27 00:00:00 84 mm[Hg] [facility] BP Systolic 2024-07-27 00:00:00 138 mm[Hg] [facility] Height 2024-07-27 00:00:00 62 [in_i] [facility] Body Weight 2024-07-27 00:00:00 201 [lb_av] [facility] BMI (Body Mass Index) 2024-07-27 00:00:00 36.8 kg/m2 [facility] BP Diastolic 2024-07-06 00:00:00 74 mm[Hg] [facility] BP Systolic 2024-07-06 00:00:00 122 mm[Hg] [facility] Body Weight 2024-07-06 00:00:00 198 [lb_av] [facility] BP Diastolic 2024-06-08 00:00:00 72 mm[Hg] [facility] BP Systolic 2024-06-08 00:00:00 140 mm[Hg] [facility] Height 2024-05-10 00:00:00 62 [in_i] [facility] Body Weight 2024-05-10 00:00:00 199 [lb_av] [facility] BP Diastolic 2024-05-10 00:00:00 72 mm[Hg] [facility] BMI (Body Mass Index) 2024-05-10 00:00:00 36.4 kg/m2 [facility] BP Systolic 2024-05-10 00:00:00 108 mm[Hg] [facility] BP Systolic 2024-04-12 00:00:00 128 mm[Hg] [facility] BMI (Body Mass Index) 2024-04-12 00:00:00 36.8 kg/m2 [facility] Body Weight 2024-04-12 00:00:00 201 [lb_av] [facility] BP Diastolic 2024-04-12 00:00:00 78 mm[Hg] [facility] Height 2024-04-12 00:00:00 62 [in_i] [facility] Body temperature 2024-02-23 20:27:00 36.28 Kristen [facility] Body temperature 2023-11-01 13:44:00 36 Kristen [facility] Body height 2023-11-01 13:44:00 165.1 cm [facility] Body weight 2023-11-01 13:44:00 89.268 kg [facility] BMI 2023-11-01 13:44:00 32.75 kg/m2 [facility] Systolic blood pressure 2023-09-21 19:30:00 112 mm[Hg] [facility] Diastolic blood pressure 2023-09-21 19:30:00 72 mm[Hg] [facility] Heart rate 2023-09-21 19:30:00 79 /min [facility] Body temperature 2023-09-21 19:30:00 36.89 Kristen [facility] Body height 2023-09-21 19:30:00 165.1 cm [facility] Body weight 2023-09-21 19:30:00 88.451 kg [facility] BMI 2023-09-21 19:30:00 32.45 kg/m2 [facility] Oxygen saturation in Arterial blood by Pulse oximetry 2023-09-21 19:30:00 98 /min [facility] BMI (Body Mass Index) 2023-08-24 00:00:00 35.7 kg/m2 [facility] Height 2023-08-24 00:00:00 62 [in_i] [facility] Body Weight 2023-08-24 00:00:00 195 [lb_av] [facility] BP Systolic 2023-07-28 00:00:00 122 mm[Hg] [facility] Body Weight 2023-07-28 00:00:00 195 [lb_av] [facility] BMI (Body Mass Index) 2023-07-28 00:00:00 35.7 kg/m2 [facility] Height 2023-07-28 00:00:00 62 [in_i] [facility] BP Diastolic 2023-07-28 00:00:00 80 mm[Hg] [facility] Systolic blood pressure 2023-03-14 21:53:00 128 mm[Hg] [facility] Diastolic blood pressure 2023-03-14 21:53:00 84 mm[Hg] [facility] Heart rate 2023-03-14 21:53:00 90 /min [facility] Body temperature 2023-03-14 21:53:00 37.28 Kristen [facility] Systolic blood pressure 2023-03-07 17:00:00 129 mm[Hg] [facility] Diastolic blood pressure 2023-03-07 17:00:00 86 mm[Hg] [facility] Heart rate 2023-03-07 17:00:00 82 /min [facility] Body temperature 2023-03-07 17:00:00 36.17 Kristen [facility] Body weight 2023-03-07 17:00:00 81.647 kg [facility] BMI 2023-03-07 17:00:00 29.95 kg/m2 [facility] Systolic blood pressure 2023-02-17 20:16:00 134 mm[Hg] [facility] Diastolic blood pressure 2023-02-17 20:16:00 90 mm[Hg] [facility] Heart rate 2023-02-17 20:16:00 93 /min [facility] Body temperature 2023-02-17 20:05:00 36.72 Kristen [facility] Body height 2023-02-17 20:05:00 165.1 cm [facility] Body weight 2023-02-17 20:05:00 81.647 kg [facility] BMI 2023-02-17 20:05:00 29.95 kg/m2 [facility] Systolic blood pressure 2022-11-23 20:05:00 135 mm[Hg] [facility] Diastolic blood pressure 2022-11-23 20:05:00 90 mm[Hg] [facility] Heart rate 2022-11-23 20:05:00 91 /min [facility] Body temperature 2022-11-23 20:05:00 36.22 Kristen [facility] Body height 2022-11-23 20:05:00 165.1 cm [facility] Body weight 2022-11-23 20:05:00 82.555 kg [facility] BMI 2022-11-23 20:05:00 30.29 kg/m2 [facility] Systolic blood pressure 2022-11-12 12:32:00 134 mm[Hg] [facility] Diastolic blood pressure 2022-11-12 12:32:00 79 mm[Hg] [facility] Heart rate 2022-11-12 12:32:00 96 /min [facility] Body temperature 2022-11-12 12:32:00 36.28 Kristen [facility] Respiratory rate 2022-11-12 12:32:00 17 /min [facility] Oxygen saturation in Arterial blood by Pulse oximetry 2022-11-12 12:32:00 95 /min [facility] Body weight 2022-11-12 09:05:00 80.967 kg [facility] BMI 2022-11-12 09:05:00 29.70 kg/m2 [facility] Body height 2022-11-11 21:55:00 165.1 cm [facility] Body height 2022-10-28 18:25:00 165.1 cm [facility] Body weight 2022-10-28 18:25:00 83.207 kg [facility] BMI 2022-10-28 18:25:00 30.53 kg/m2 [facility] Body temperature 2022-08-06 20:02:00 36.67 Kristen [facility] Body height 2022-08-06 20:02:00 165.1 cm [facility] Body weight 2022-08-06 20:02:00 80.74 kg [facility] BMI 2022-08-06 20:02:00 29.62 kg/m2 [facility] BP Diastolic 2022-07-23 00:00:00 82 mm[Hg] [facility] Height 2022-07-23 00:00:00 62 [in_i] [facility] BMI (Body Mass Index) 2022-07-23 00:00:00 33.1 kg/m2 [facility] BP Systolic 2022-07-23 00:00:00 124 mm[Hg] [facility] Body Weight 2022-07-23 00:00:00 181 [lb_av] [facility] Systolic blood pressure 2022-07-21 13:46:00 124 mm[Hg] [facility] Diastolic blood pressure 2022-07-21 13:46:00 81 mm[Hg] [facility] Heart rate 2022-07-21 13:46:00 80 /min [facility] Body temperature 2022-07-21 13:46:00 37.28 Kristen [facility] Body height 2022-07-21 13:46:00 165.1 cm [facility] Body weight 2022-07-21 13:46:00 82.555 kg [facility] BMI 2022-07-21 13:46:00 30.29 kg/m2 [facility] Oxygen saturation in Arterial blood by Pulse oximetry 2022-07-21 13:46:00 100 /min [facility] Heart rate 2022-04-16 20:14:00 100 /min [facility] Respiratory rate 2022-04-16 20:14:00 18 /min [facility] Oxygen saturation in Arterial blood by Pulse oximetry 2022-04-16 20:14:00 100 /min [facility] Systolic blood pressure 2022-04-16 20:12:00 127 mm[Hg] [facility] Diastolic blood pressure 2022-04-16 20:12:00 84 mm[Hg] [facility] Body temperature 2022-04-16 19:06:00 36.89 Kristen [facility] Body weight 2022-04-12 21:00:00 81.647 kg [facility] BMI 2022-04-12 21:00:00 29.95 kg/m2 [facility] Systolic blood pressure 2022-04-16 17:16:00 140 mm[Hg] [facility] Diastolic blood pressure 2022-04-16 17:16:00 78 mm[Hg] [facility] Heart rate 2022-04-16 17:16:00 113 /min [facility] Body temperature 2022-04-16 17:16:00 37.06 Kristen [facility] Respiratory rate 2022-04-16 17:16:00 17 /min [facility] Oxygen saturation in Arterial blood by Pulse oximetry 2022-04-16 17:16:00 100 /min [facility] Body weight 2022-04-12 21:00:00 81.647 kg [facility] BMI 2022-04-12 21:00:00 29.95 kg/m2 [facility] Systolic blood pressure 2022-04-14 16:25:00 128 mm[Hg] [facility] Diastolic blood pressure 2022-04-14 16:25:00 88 mm[Hg] [facility] Heart rate 2022-04-14 16:25:00 106 /min [facility] Body temperature 2022-04-14 16:25:00 36.67 Kristen [facility] Respiratory rate 2022-04-14 16:25:00 18 /min [facility] Body height 2022-04-14 16:25:00 165.1 cm [facility] Body weight 2022-04-14 16:25:00 82.01 kg [facility] BMI 2022-04-14 16:25:00 30.09 kg/m2 [facility] Systolic blood pressure 2022-02-01 20:26:00 133 mm[Hg] [facility] Diastolic blood pressure 2022-02-01 20:26:00 83 mm[Hg] [facility] Heart rate 2022-02-01 20:26:00 52 /min [facility] Body temperature 2022-02-01 20:26:00 37.22 Kristen [facility] Respiratory rate 2022-02-01 20:26:00 16 /min [facility] Body height 2022-02-01 20:26:00 165.1 cm [facility] Body weight 2022-02-01 20:26:00 81.194 kg [facility] BMI 2022-02-01 20:26:00 29.79 kg/m2 [facility] Systolic blood pressure 2022-01-25 20:09:00 119 mm[Hg] [facility] Diastolic blood pressure 2022-01-25 20:09:00 79 mm[Hg] [facility] Heart rate 2022-01-25 20:09:00 89 /min [facility] Body height 2022-01-25 20:09:00 167.6 cm [facility] Body weight 2022-01-25 20:09:00 80.831 kg [facility] BMI 2022-01-25 20:09:00 28.76 kg/m2 [facility] Oxygen saturation in Arterial blood by Pulse oximetry 2022-01-25 20:09:00 97 /min [facility] Systolic blood pressure 2022-01-19 20:03:00 121 mm[Hg] [facility] Diastolic blood pressure 2022-01-19 20:03:00 79 mm[Hg] [facility] Heart rate 2022-01-19 20:03:00 105 /min [facility] Body temperature 2022-01-19 20:03:00 36.89 Kristen [facility] Respiratory rate 2022-01-19 20:03:00 18 /min [facility] Body height 2022-01-19 20:03:00 167.6 cm [facility] Body weight 2022-01-19 20:03:00 81.466 kg [facility] BMI 2022-01-19 20:03:00 28.99 kg/m2 [facility] Oxygen saturation in Arterial blood by Pulse oximetry 2022-01-19 20:03:00 98 /min [facility] Systolic blood pressure 2021-12-24 18:00:00 139 mm[Hg] [facility] Diastolic blood pressure 2021-12-24 18:00:00 81 mm[Hg] [facility] Heart rate 2021-12-24 18:00:00 108 /min [facility] Body height 2021-12-24 18:00:00 167.6 cm [facility] Body weight 2021-12-24 18:00:00 81.421 kg [facility] BMI 2021-12-24 18:00:00 28.97 kg/m2 [facility] Oxygen saturation in Arterial blood by Pulse oximetry 2021-12-24 18:00:00 99 /min [facility] Body temperature 2021-07-26 22:15:00 36.61 Kristen [facility] Respiratory rate 2021-07-26 22:15:00 16 /min [facility] Procedures Procedure Date / Time Performed Performing Clinician Source REPAIR PERINEUM SKIN, COREMAKER MACHINE AL APPROACH 2024-11-12 00:00:00 [facility] DELIVERY OF PRODUCTS OF CONCEPTION, EXTERNAL APPRO 2024-11-12 00:00:00 [facility] INTRODUCTION OF OTH HORMONE INTO PERIPH VEIN, PERC 2024-11-12 00:00:00 [facility] INTRODUCE OTH THERAP SUBST I N MOUTH/PHAR, COREMAKER MACHINE 2024-11-12 00:00:00 [facility] TDAP VACCINE, >11 YRS, IM 2024-10-30 18:26:28 Leonardo Cespedes [facility] COMP. METABOLIC PANEL ([id number]) 2024-08-17 14:07:00 Aldo Restrepo [facility] CBC WITH DIFF 2024-08-17 14:07:00 Gen[facility] D-DIMER 2024-08-17 14:07:00 [facility] URINALYSIS 2024-08-17 14:07:00 [facility] URINE DRUG (IMMUNOASSAY) - COMPREHENSIVE DRUG SCREEN W/O REFLEX 2024-08-17 14:07:00 Genaro [facility] FENTANYL (IMMUNOASSAY) 2024-08-17 14:07:00 Genaro Aldo [facility] US DUPLEX VENOUS ARM RIGHT - BY VASCULAR LAB 2024-08-17 13:51:00 Genaro [facility] RESTRICTION OF CERVIX, VIA N ATURAL OR ARTIFICIAL O 2024-07-01 00:00:00 [facility] PREG UTERUS AFTER 1ST TRI MEST GESTATION 2024-06-08 00:00:00 [facility], obstetric, 1st trimester 2024-04-12 00:00:00 [facility] FLU VACC ([id number]), 6 MO-6 4 YRS, .5ML, IM, TIV (FLUCELVAX) 2024-02-23 20:20:53 Ivis Mireles [facility] SEDATION USAGE RECORD 2023-03-29 06:01:00 Doctor Unassigned, [place] [facility] SEDATION USAGE RECORD 2023-03-07 06:01:00 Doctor Unassigned, [place] [facility] DSU PRE-OP 2023-02-17 05:01:00 Doctor Unassigned, [place] [facility] PATIENT QUESTIONNAIRE 2022-11-23 05:01:00 Doctor Unassigned, [place] [facility] BASIC METABOLIC PANEL (NA, K , CL, CO2, GLUCOSE, BUN, CREATININE, CA) 2022-11-12 09:56:00 Nader Marcano [facility] CBC WITH DIFF 2022-11-12 09:56:00 Nader Marcano [facility] US OVARY TORSION 2022-11-11 20:05:17 Esteban Lim [facility] TEST, URINE 2022-11-11 18:39:00 Nader Marcano [facility] URINE DRUG (IMMUNOASSAY) - COMPREHENSIVE DRUG SCREEN 2022-11-11 18:39:00 Esteban Lim [facility] COMP. METABOLIC PANEL (14795) 2022-11-11 17:28:00 Esteban Lim [facility] CBC WITH DIFF 2022-11-11 17:28:00 [facility] URINALYSIS 2022-11-11 17:28:00 [facility] CONSENT/REFUSAL FOR DIAGNOSI S AND TREATMENT 2022-11-11 17:04:34 Doctor Unassigned, [place] [facility] PELVIS COMPLETE WITH TRANSVAGINAL 2022-08-05 20:41:33 Requisition, Paper [facility] US, pelvis, transabdominal + transvaginal 2022-07-23 00:00:00 [facility] POCT URINALYSIS 2022-07-21 15:18:00 Abby Grewal [facility] POCT TEST 2022-07-21 15:15:00 Abby Grewal [facility] THYROID STIMULATING HORMONE 2022-07-21 15:06:00 Abby Grewal [facility] COMP. METABOLIC PANEL (89117) 2022-07-21 15:06:00 Abby Grewal [facility] PROTHROMBIN TIME / INR 2022-07-21 15:06:00 Abby Grewal [facility] ACTIVATED PARTIAL THRMPLAS MELCHOR 2022-07-01 2 15:06:00 Abby Grewal [facility] COLONOSCOPY 2022-04-16 18:00:00 Emily Lopez [facility] ESOPHAGOGASTRODUODENOSCOPY 2022-04-16 18:00:00 Emiyl Lopez [facility] COLONOSCOPY (ENDO) 2022-04-16 17:47:37 Nelson Trammell [facility] COLONOSCOPY (ENDO) 2022-04-16 17:47:37 Nelson Trammell [facility] EGD (ENDO) 2022-04-16 17:42[facility] 2022-04-16 17:42:16 Nelson Trammell [facility] POCT TEST 2022-04-16 17:13:00 Denny Carrillo [facility] POCT TEST 2022-04-16 17:13:00 Denny Carrillo [facility] DAY SURGERY - ADC 2022-04-16 06:01:00 Doctor Unassigned, [place] [facility] POCT TEST 2022-04-14 00:00:00 Spring Stevens [facility] US PELVIS COMPLETE WITH TRANSVAGINAL 2022-02-11 22:40:00 Spring Stevens [facility] US GALL BLADDER 2022-01-27 19:45:41 Joel Styles [facility] DISCLOSURE AND CONSENT, MEDI TYRA AND SURGICAL PROCEDURES 2022-01-19 05:01:00 Doctor Unassigned, [place] [facility] ASSIGNMENT OF BENEFITS 2022-01-15 17:31:10 Doctor Unassigned, [place] [facility] CONSENT/REFUSAL FOR DIAGNOSI S AND TREATMENT 2022-01-15 17:25:54 Doctor Unassigned, [place] [facility] CONSENT/REFUSAL FOR DIAGNOSI S AND TREATMENT 2022-01-15 17:25:54 Doctor Unassigned, [place] [facility] INSURANCE CORRESPONDENCE 2021-12-30 05:01:00 Doctor Unassigned, [place] [facility] CBC WITH DIFF 2021-12-24 19:34:00 [facility] COMP. 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 [facility] Medical Encounters Start Date/Time End Date/Time Encounter Type Admission Type Attending Clinicians Care Facility Care Department Encounter ID Source 2022-11-04 15:13:49 Outpatient BC [facility] FRANKLYN [id number] [facility] 2021-03-02 13:43:46 Emergency [facility] [id number] [facility] 2021-03-02 11:39:36 Emergency [facility] [id number] [facility] 2024-12-13 09:40:00 2024-12-13 10:11:35 Office Visit Sherman Concepcion [facility] 1.2.840.114 350.1.13.10 4.2.7.2.686 [id number] [facility] 2024-11-30 00:00:00 2024-11-30 00:00:00 Valerie Reddy MD: [address] [place] [address] , Ph. [facility] - [facility]_ [place] Office [id number] [facility] 2024-11-21 17:30:00 2024-11-21 17:42:20 Office Visit Leonardo Bailey [facility] 1..840.114 350.1.13.10 4.2.7.2.686 [id number] [facility] 2024-11-12 03:55:00 2024-11-15 14:58:00 Inpatient Valerie Weaver [facility] OB [id number] [facility] 2024-11-08 00:00:00 2024-11-08 00:00:00 Valerie Reddy MD: [address] [facility], [address], [place] [address] , Ph. [facility]_ [place]* [id number] [facility] 2024-11-01 00:00:00 2024-11-01 00:00:00 Valerie Reddy MD: [address] [facility], [address], [place] [address] , Ph. [facility]_ [place]* [id number] [facility] 2024-10-30 13:00:00 2024-10-30 13:31:27 Office Visit Connie Cespedes [facility] 1.2.840.114 350.1.13.10 4.2.7.2.686 [id number] [facility] 2024-10-11 22:55:00 2024 01:41:00 Emergency EM Valerie Reddy [facility] ZOLTAN [id number] [facility] 2024-09-27 00:00:00 2024-09-27 00:00:00 Valerie Reddy MD: [address] [facility], [address], [place] [address] , Ph. [facility]_ [place] Office* [id number] [facility] 2024-09-21 16:38:00 2024-09-21 18:21:00 Emergency EM Valerie Reddy [facility] ZOLTAN [id number] 15 [facility] 2024-09-21 00:00:00 2024-09-21 00:00:00 Valerie Reddy MD: [place] [address] , Ph. [facility] Office [id number] [facility] 2024-09-07 17:30:00 2024-09-07 21:02:00 Emergency EM Valerie Reddy [facility] Z[facility] [id number] 73 [facility] 2024-09-07 00:00:00 2024-09-07 00:00:00 Valerie Reddy MD: [place] [address] , Ph. [facility] Office [id number] [facility] 2024-08-31 00:00:00 2024-09-05 08:48:04 Telephone Nelson Trammell [facility] 1.2.840.114 350.1.13.10 4.2.7.2.686 [id number] [facility] 2024-08-24 00:00:00 2024-08-24 00:00:00 Valerie Reddy MD: [place] [address] , Ph. [facility] Office [id number] [facility] 2024-08-17 20:26:00 2024-08-18 12:25:00 Inpatient EM Valerie Reddy [facility] OBANTE [id number] 07 [facility] 2024-08-17 08:08:00 2024-08-17 13:47:00 Emergency X RESTREPOALDO TIMOTHY [facility] ERT [id number] [facility] 2024-08-17 08:08:00 2024-08-17 13:47:00 Emergency X RESTREPO, MELCHOR PUGHOTHY MSMB ERT [id number] [facility] 2024-07-27 00:00:00 2024-07-27 00:00:00 Valerie Reddy MD: [place] [address] , Ph. [facility]_ [place] Office [id number] [facility] 2024-07-10 10:10:00 2024-07-10 10:59:00 Emergency EM Valerie Reddy [facility] ZOLTAN [id number] 34 [facility] 2024-07-06 00:00:00 2024-07-06 00:00:00 Valerie Reddy MD: [address] [facility], [address] [address] , Ph. [facility]_ [place] Office* [id number] [facility] 2024-06-29 16:55:00 2024-07-04 14:16:00 Inpatient EM Valerie Reddy [facility] OBANTE [id number] 64 [facility] [place] 2024-06-08 00:00:00 2024-06-08 00:00:00 Valerie Reddy MD: [address] [facility] [address], [place] [address] , Ph. [facility]_ [place] Office* [id number] [facility] 2024-05-10 00:00:00 2024-05-10 00:00:00 Valerie Reddy MD: [address] [facility], [address], [place] [address] , Ph. [facility]_ [place] Office* [id number] [facility] 2024-04-23 15:31:00 2024-04-24 00:06:00 Emergency EM Raj Mars [facility] ANUPAM [id number] [facility] [place] 2024-04-12 00:00:00 2024-04-12 00:00:00 Valerie Reddy MD: [address] [facility] [address], [place] [address] , Ph. [facility] - [facility]_ [place]* [id number] [facility] 2024-02-23 15:00:00 2024-02-23 15:20:00 Nurse Visit Nurse, [facility] Ivis Mireles Nurse, [facility] PROFESSIO [facility] 1..840.114 350.1.13.10 4.2.7.2.686 [id number] [facility] 2024-02-23 15:00:00 2024-02-23 15:00:00 Outpatient R IVIS MIRELES [facility] [id number] [facility] 2023-11-02 00:00:00 2023-12-03 18:18:52 Patient Secure lazarus Skelton [facility] 1..840.114 350.1.13.10 4.2.7.2.686 [id number] [facility] 2023-12-01 08:30:00 2023-12-01 08:30:00 Outpatient R COSTA [facility] [id number] [facility] 2023-11-29 00:00:00 2023-11-29 10:31:36 Telephone Costa [facility] 1..840.114 350.1.13.10 4.2.7.2.686 [id number] [facility] 2023-11-28 00:00:00 2023-11-29 09:14:06 Telephone Justus [employer] Suite [facility] ..840.114 350.1.13.10 4.2.7.2.686 [id number] [facility] 2023-11-28 11:15:00 2023-11-28 11:15:00 Outpatient R [facility] [id number] [facility] 2023-11-02 00:00:00 2023-11-07 19:06:34 Telephone [facility] DEONCorey JOHNSON 1.2840.114 350.1.13.10 4.2.7.2.686 [id number] [facility] 2023-11-01 08:30:00 2023-11-01 12:13:21 Outpatient R COSTA [facility] [id number] [facility] 2023-11-01 08:30:00 2023-11-01 12:13:21 Office Visit Costa [facility] DEONCorey JOHNSON 1.840.114 350.1.13.10 4.2.7.2.686 [id number] [facility] 2023-09-28 00:00:00 2023-09-28 10:25:35 Case Management Tori Mendes [facility] 1.84.114 350.1.13.10 4.2.7.2.686 [id number] [facility] 2023-09-21 15:15:00 2023-09-21 15:30:00 Side Stapler Visit Lab, Flavio - Sharmila V[facility] 1.840.114 350.1.13.10 4.2.7.2.686 [id number] [facility] 2023-09-21 14:30:00 2023-09-21 15:12:56 Outpatient R SHARMILA WRIGHT [facility] [id number] [facility] 2023-09-21 14:30:00 2023-09-21 15:12:56 Office Visit Sharmila Wright [facility] VERONICA[facility] 1.2840.114 350.1.13.10 4.2.7.2.686 [id number] [facility] 2023-09-07 14:30:00 2023-09-07 14:30:00 Outpatient R SHARMILA WRIGHT [facility] [id number] [facility] 2023-08-24 00:00:00 2023-08-24 00:00:00 Valerie Reddy MD: [address] [facility], [address], [place] [address] , Ph. [facility] - [facility]_ [place]* [id number] [facility] 2023-07-28 00:00:00 2023-07-28 00:00:00 Valerie Reddy MD: [address] [facility], [address], [place] [address] , Ph. [facility]_ [place]* [id number] [facility] 2023-07-23 00:00:00 2023-07-23 00:00:00 Outpatient GC_[facility]_ Barry_[facility] [id number] [facility] 2023-03-29 00:00:00 2023-03-29 00:00:00 Orders Only Doctor Unassigned, [place] [facility] 1.840.114 350.1.13.10 4.2.7.2.686 [id number] [facility] 2023-03-14 15:30:00 2023-03-14 16:00:00 Office Visit Truong Brown [facility] 1.840.114 350.1.13.10 4.2.7.2.686 [id number] [facility] 2023-03-14 15:30:00 2023-03-14 15:30:00 Outpatient TRUONG BRADSHAW [facility] [id number] [facility] 2023-03-09 00:00:00 2023-03-09 00:00:00 Telephone Truong Brown [facility] 1.2.840.114 350.1.13.10 4.2.7.2.686 [id number] [facility] 2023-03-07 10:30:00 2023-03-07 13:43:47 Outpatient R TRUONG BROWN [facility] [id number] [facility] 2023-03-07 10:30:00 2023-03-07 13:43:47 Office Visit Truong Brown [facility] 1.2.840.114 350.1.13.10 4.2.7.2.686 [id number] [facility] 2023-03-07 00:00:00 2023-03-07 00:00:00 Patient Secure Truong Brown [facility] 1.2.840.114 350.1.13.10 4.2.7.2.686 [id number] [facility] 2023-03-07 00:00:00 2023-03-07 00:00:00 Orders Only Doctor Unassigned, [place] [facility] 1.2.840.114 350.1.13.10 4.2.7.2.686 [id number] [facility] 2023-03-04 00:00:00 2023-03-04 00:00:00 Telephone Truong Brown [facility] 1.2.840.114 350.1.13.10 4.2.7.2.686 [id number] [facility] 2023-03-01 00:00:00 2023-03-01 00:00:00 Patient Secure Truong Brown [facility] 1.2.840.114 350.1.13.10 4.2.7.2.686 [id number] [facility] 2023-02-22 00:00:00 2023-02-22 00:00:00 Telephone Costa Bc [facility] 1.2840.114 350.1.13.10 4.2.7.2.686 [id number] [facility] 2023-02-22 00:00:00 2023-02-22 00:00:00 Telephone Truong Brown [facility] 1.2840.114 350.1.13.10 4.2.7.2.686 [id number] [facility] 2023-02-22 00:00:00 2023-02-22 00:00:00 Telephone CostaBc [facility] 1.2.840.114 350.1.13.10 4.2.7.2.686 [id number] [facility] 2023-02-21 07:30:00 2023-02-21 07:45:00 Side Stapler Visit Pob, Adc Lab Main Lucia Lev[facility] 1.84.114 350.1.13.10 4.2.7.2.686 [id number] [facility] 2023-02-21 07:30:00 2023-02-21 07:30:00 Outpatient LUCIA ROSADO [facility] [id number] [facility] 2023-02-17 15:00:00 2023-02-17 15:55:52 Outpatient R TRUONG BROWN [facility] [id number] [facility] 2023-02-17 15:00:00 2023-02-17 15:55:52 Office Visit Truong Brown [facility] 1.284.114 350.1.13.10 4.2.7.2.686 [id number] [facility] 2023-02-17 00:00:00 2023-02-17 00:00:00 Orders Only Doctor Unassigned, [place] [facility] 1.2.840.114 350.1.13.10 4.2.7.2.686 [id number] [facility] 2023-02-15 00:00:00 2023-02-15 00:00:00 Patient Outreach Bc Skelton [facility] 1.2.840.114 350.1.13.10 4.2.7.2.686 [id number] [facility] 2023-02-15 00:00:00 2023-02-15 00:00:00 Telephone Costa [facility] 1.2.840.114 350.1.13.10 4.2.7.2.686 [id number] [facility] 2023-02-15 00:00:00 2023-02-15 00:00:00 Telephone Costa [facility] 1.2.840.114 350.1.13.10 4.2.7.2.686 [id number] [facility] 2023-01-19 11:15:00 2023-01-19 11:15:00 Outpatient R COSTA BC [facility] [id number] [facility] 2023-01-12 00:00:00 2023-01-12 00:00:00 Telephone Costa [facility] 1.2.840.114 350.1.13.10 4.2.7.2.686 [id number] [facility] 2022-12-09 15:00:00 2022-12-09 15:00:00 Outpatient TRUONG BRADSHAW [facility] [id number] [facility] 2022-12-08 00:00:00 2022-12-08 00:00:00 Telephone [place] [facility] 1.2.840.114 350.1.13.10 4.2.7.2.686 [id number] [facility] 2022-11-30 00:00:00 2022-11-30 00:00:00 Telephone Costa [facility] 1.2.840.114 350.1.13.10 4.2.7.2.686 [id number] [facility] 2022-11-30 00:00:00 2022-11-30 00:00:00 Patient Secure Msg Doctor Unassigned, [place] [facility] 1.2.840.114 350.1.13.10 4.2.7.2.686 [id number] [facility] 2022-11-29 00:00:00 2022-11-29 00:00:00 Telephone Costa [facility] 1.2.840.114 350.1.13.10 4.2.7.2.686 [id number] [facility] 2022-11-23 14:30:00 2022-11-23 15:49:46 Outpatient R [facility]UDI [facility] [id number] [facility] 2022-11-23 14:30:00 2022-11-23 15:49:46 Office Visit Megan Grijalva [facility] 1.2.840.114 350.1.13.10 4.2.7.2.686 [id number] [facility] 2022-11-23 00:00:00 2022-11-23 00:00:00 Orders Only Doctor Unassigned, [place] [facility] 1.2.840.114 350.1.13.10 4.2.7.2.686 [id number] [facility] 2022-11-19 00:00:00 2022-11-19 00:00[facility] 1.2.840.114 350.1.13.10 4.2.7.2.686 [id number] [facility] 2022-11-16 00:00:00 2022-11-16 00:00:00 Telephone Bc Skelton [facility] ServiceBench [facility] 1.2.840.114 350.1.13.10 4.2.7.2.686 [id number] [facility] 2022-11-11 12:08:00 2022-11-12 11:35:00 Outpatient X NADER MARCANO [facility] CARLY [id number] [facility] 2022-11-11 12:08:00 2022-11-12 11:35:00 Emergency RaphaelEsteban bernstein Jelani [facility] 1.2.840.114 350.1.13.10 4.2.7.2.686 [id number] [facility] 2022-11-12 00:00:00 2022-11-12 00:00:00 Telephone Costa [facility] 1.2.840.114 350.1.13.10 4.2.7.2.686 [id number] [facility] 2022-11-12 00:00:00 2022-11-12 00:00:00 Patient Secure Msg Doctor Unassigned, [place] [facility] 1.2.840.114 350.1.13.10 4.2.7.2.686 [id number] [facility] 2022-10-28 13:30:00 2022-10-28 13:45:00 Office Visit Costa [facility] 1.2.840.114 350.1.13.10 4.2.7.2.686 [id number] [facility] 2022-10-28 13:30:00 2022-10-28 13:30:00 Outpatient R BC SKELTON [facility] [id number] [facility] 2022-10-28 00:00:00 2022-10-28 00:00:00 Patient Secure Msg Skelton Anthony [facility] 1.2.840.114 350.1.13.10 4.2.7.2.686 [id number] [facility] 2022-10-14 14:45:00 2022-10-14 15:30:00 Ancillary Visit 2, [employer] Suite Gaviota Schulz [facility] 1.2.840.114 350.1.13.10 4.2.7.2.686 [id number] [facility] 2022-10-14 14:45:00 2022-10-14 14:45:00 Outpatient R GAVIOTA SCHULZ [facility] [id number] [facility] 2022-09-16 16:30:00 2022-09-16 16:30:00 Outpatient R SHARMILA WRIGHT [facility] [id number] [facility] 2022-08-06 15:15:00 2022-08-06 15:41:47 Outpatient R DEBRA SIMMONS [facility] [id number] [facility] 2022-08-06 15:15:00 2022-08-06 15:41:47 [facility] 1.2.840.114 350.1.13.10 4.2.7.2.686 [id number] [facility] 2022-08-05 15:05:23 2022-08-05 23:59:00 Outpatient R RADIOLOGY [facility] [id number] [facility] 2022-08-05 15:00:00 2022-08-05 23:59:00 Hospital Encounter Radiology [facility] 1.2.840.114 350.1.13.10 4.2.7.2.686 [id number] [facility] 2022-08-02 00:00:00 2022-08-02 00:00:00 Patient Secure Msg Doctor Unassigned, [place] [facility] 1..840.114 350.1.13.10 4.2.7.2.686 [id number] [facility] 2022-07-29 15:00:00 2022-07-29 15:00:00 Outpatient R SPRING STEVENS [facility] [id number] [facility] 2022-07-26 00:00:00 2022-07-26 00:00:00 Patient Secure Msg Trammell [facility] 1.2.840.114 350.1.13.10 4.2.7.2.686 [id number] [facility] 2022-07-23 16:00:00 2022-07-23 16:31:17 Outpatient R BEKAH TRAMMELLTHIA [facility] [id number] [facility] 2022-07-23 16:00:00 2022-07-23 16:15:00 Side Stapler Visit Lab, Flavio Mortensen Valeri [facility] 1.2.840.114 350.1.13.10 4.2.7.2.686 [id number] [facility] 2022-07-23 12:45:00 2022-07-23 12:45:00 Outpatient LUCIA MEZA [facility] [id number] [facility] 2022-07-23 00:00:00 2022-07-23 00:00:00 Valerie Reddy MD: [address], [place] [address] , Ph. [facility] - _[facility]_ [place] Office [id number] [facility] 2022-07-21 09:45:00 2022-07-21 10:22:48 Side Stapler Visit Lab, Ang - Db Uri Replaced by [facility] 1.2.840.114 350.1.13.10 4.2.7.2.686 [id number] [facility] 2022-07-21 08:30:00 2022-07-21 09:25:34 Outpatient R ABBY GREWAL [facility] [id number] [facility] 2022-07-21 08:30:00 2022-07-21 09:25:34 [facility] 1.2.840.114 350.1.13.10 4.2.7.2.686 [id number] [facility] 2022-06-02 13:30:00 2022-06-02 13:30:00 Outpatient R [facility] [id number] [facility] 2022-05-12 00:00:00 2022-05-12 00:00:00 Patient Secure Tania Harris [facility] 1.2.840.114 350.1.13.10 4.2.7.2.686 [id number] [facility] 2022-05-11 00:00:00 2022-05-11 00:00:00 Telephone Emily Lopez [facility] 1.2.840.114 350.1.13.10 4.2.7.2.686 [id number] [facility] 2022-04-16 11:08:00 2022-04-16 14:22:00 Outpatient R EMILY LOPEZ [facility] KEON [id number] [facility] 2022-04-16 11:08:00 2022-04-16 14:22:00 Hospital Encounter Emily Lopez [facility] [place] 1.2.840.114 350.1.13.10 4.2.7.2.686 [id number] [facility] 2022-04-16 11:35:00 2022-04-16 12:54:00 Surgery Emily Lopez [facility] [place] 1.2.840.114 350.1.13.10 4.2.7.2.686 [id number] [facility] 2022-04-16 00:00:00 2022-04-16 00:00:00 Orders Only Doctor Unassigned, [place] [facility] 1.2.840.114 350.1.13.10 4.2.7.2.686 [id number] [facility] 2022-04-15 00:00:00 2022-04-15 00:00:00 Telephone Emily Lopez [facility] 1.2.840.114 350.1.13.10 4.2.7.2.686 [id number] [facility] 2022-04-14 10:00:00 2022-04-14 10:36:00 Outpatient R [facility] [id number] [facility] 2022-04-14 10:00:00 2022-04-14 10:36:00 [facility] 1.2.840.114 350.1.13.10 4.2.7.2.686 [id number] [facility] 2022-04-12 00:00:00 2022-04-12 00:00:00 Telephone [facility] 1.2.840.114 350.1.13.10 4.2.7.2.686 [id number] [facility] 2022-03-02 13:00:00 2022-03-02 13:00:00 Outpatient R [facility] [id number] [facility] 2022-02-12 00:00:00 2022-02-12 00:00:00 Telephone [facility] 1.0.114 350.1.13.10 4.2.7.2.686 [id number] [facility] 2022-02-11 16:58:16 2022-02-11 23:59:00 Outpatient R [facility] [id number] [facility] 2022-02-11 16:58:16 2022-02-11 23:59:00 Hospital Encounter [facility] 1.840.114 350.1.13.10 4.2.7.2.686 [id number] [facility] 2022-02-03 00:00:00 2022-02-03 00:00:00 Telephone [place] [facility] 1.2840.114 350.1.13.10 4.2.7.2.686 [id number] [facility] 2022-02-03 00:00:00 2022-02-03 00:00:00 Telephone [facility] 1.2840.114 350.1.13.10 4.2.7.2.686 [id number] [facility] 2022-02-02 00:00:00 2022-02-02 00:00:00 Patient Secure Msg Doctor Unassigned, [place] [facility] 1.2840.114 350.1.13.10 4.2.7.2.686 [id number] [id number] [facility] 2022-02-01 16:30:00 2022-02-01 16:45:00 Side Stapler Visit Pob, Adc Lab Main [place] [facility] 1..840.114 350.1.13.10 4.2.7.2.686 [id number] [facility] 2022-02-01 15:00:00 2022-02-01 16:13:46 Outpatient R [facility] [id number] [facility] 2022-02-01 15:00:00 2022-02-01 16:13:46 Office Visit [place] [facility] 1..840.114 350.1.13.10 4.2.7.2.686 [id number] [facility] 2022-02-01 15:00:00 2022-02-01 15:00:00 Outpatient R [facility] [id number] [facility] 2022-02-01 00:00:00 2022-02-01 00:00:00 Telephone Ping Grant [facility] 1..840.114 350.1.13.10 4.2.7.2.686 [id number] [facility] 2022-01-29 00:00:00 2022-01-29 00:00:00 Patient Secure Msg Doctor Unassigned, [place] [facility] 1.2.840.114 350.1.13.10 4.2.7.2.686 [id number] [facility] 2022-01-27 14:05:37 2022-01-27 23:59:00 Outpatient R EMILY LOPEZ [facility] [id number] [facility] 2022-01-27 14:00:00 2022-01-27 23:59:00 Hospital Encounter Emily Lopez [facility] 1..840.114 350.1.13.10 4.2.7.2.686 [id number] [facility] 2022-01-25 15:00:00 2022-01-25 15:30:00 Office Visit Nelson Trammell [facility] 1.2.840.114 350.1.13.10 4.2.7.2.686 [id number] [facility] 2022-01-25 15:00:00 2022-01-25 15:00:00 [id number] [facility] 2022-01-25 09:30:00 2022-01-25 09:30:00 Outpatient R NELSON TRAMMELL [facility] [id number] [facility] 2022-01-21 00:00:00 2022-01-21 00:00:00 Telephone Emily Lopez [facility] 1.2.840.114 350.1.13.10 4.2.7.2.686 [id number] [facility] 2022-01-20 00:00:00 2022-01-20 00:00:00 Telephone Emily Lopez [facility] 1.2.840.114 350.1.13.10 4.2.7.2.686 [id number] [facility] 2022-01-19 15:00:00 2022-01-19 16:18:40 Outpatient R EMILY LOPEZ [facility] [id number] [facility] 2022-01-19 15:00:00 2022-01-19 16:18:40 Office Visit Emily Lopez [facility] 1.2.840.114 350.1.13.10 4.2.7.2.686 [id number] [facility] 2022-01-19 00:00:00 2022-01-19 00:00:00 Orders Only Doctor Unassigned, [place] [facility] 1.2.840.114 350.1.13.10 4.2.7.2.686 [id number] [id number] [facility] 2022-01-18 00:00:00 2022-01-18 00:00:00 Travel 1.2.840.1 09217.1.1 3.104.2.7 .3.660256 .8 1.2.840.114 350.1.13.10 4.2.7.3.698 084.8 [id number] [facility] 2022-01-15 12:30:00 2022-01-15 13:48:33 Outpatient EMILY JAMES [facility] [id number] [facility] 2022-01-15 00:00:00 2022-01-15 00:00:00 Orders Only Doctor Unassigned, [place] 1.2.840.1 59438.1.1 3.104.2.7 .3.100323 .8 [id number] [facility] 2022-01-15 00:00:00 2022-01-15 00:00:00 Travel 1.2.840.1 59669.1.1 3.104.2.7 .3.628945 .8 1.2.840.114 350.1.13.10 4.2.7.3.698 084.8 [id number] [facility] 2022-01-11 00:00:00 2022-01-11 00:00:00 Patient Secure Nelson Edwards 1.2.840.1 96832.1.1 3.104.2.7 .3.033500 .8 [id number] [facility] 2021-12-31 09:30:00 2021-12-31 09:30:00 Outpatient EMILY TORRES [facility] [id number] [facility] 2021-12-30 00:00:00 2021-12-30 00:00:00 Orders Only Doctor Unassigned, [place] [facility] 1.2840.114 350.1.13.10 4.2.7.2.686 [id number] [id number] [facility] 2021-12-28 00:00:00 2021-12-28 00:00:00 [facility] 1.284.114 350.1.13.10 4.2.7.2.686 [id number] 044 [id number] [facility] 2021-12-28 00:00:00 2021-12-28 00:00:00 Telephone Nelson Trammell 1.2.840.1 02963.1.1 3.104.2.7 .3.643452 .8 [id number] [facility] 2021-12-25 00:00:00 2021-12-25 00:00:00 Patient Secure Msg [facility] 1.840.114 350.1.13.10 4.2.7.2.686 [id number] [id number] [facility] 2021-12-25 00:00:00 2021-12-25 00:00:00 Patient Secure Msg Nelson Trammell 1.2.840.1 76347.1.1 3.104.2.7 .3.402048 .8 [id number] [facility] 2021-12-25 00:00:00 2021-12-25 00:00:00 Patient Secure Msg Doctor Unassigned, [place] [facility] 1.2840.114 350.1.13.10 4.2.7.2.686 [id number] 019 [id number] [facility] 2021-12-24 14:30:00 2021-12-24 14:45:00 Side Stapler Visit Lab, Ang - Db [facility] 1.2.840.114 350.1.13.10 4.2.7.2.686 [id number] [facility] 2021-12-24 14:30:00 2021-12-24 14:39:50 Side Stapler Visit Nelson Trammell Arabella, Flavio Torre Festus 1.2.840.1 49284.1.1 3.104.2.7 .3.952982 .8 [id number] [facility] 2021-12-24 13:00:00 2021-12-24 14:09:21 Outpatient R NELSON TRAMMELL [facility] [id number] [facility] 2021-12-24 13:00:00 2021-12-24 14:09:21 [facility] 1.2.840.114 350.1.13.10 4.2.7.2.686 [id number] [id number] [facility] 2021-12-24 13:00:00 2021-12-24 14:09:21 Outpatient R NELSON TRAMMELL [facility] [id number] [facility] 2021-12-24 13:00:00 2021-12-24 14:09:21 Office Visit Nelson Trammell 1.2.840.1 58088.1.1 3.104.2.7 .3.394575 .8 [id number] [facility] 2021-12-24 00:00:00 2021-12-24 00:00:00 Telephone Nelson Trammell 1.2.840.1 82379.1.1 3.104.2.7 .3.855914 .8 [id number] [facility] 2021-12-24 00:00:00 2021-12-24 00:00:00 Travel 1.2.840.1 85207.1.1 3.104.2.7 .3.518338 .8 1.2.840.114 350.1.13.10 4.2.7.3.698 084.8 [id number] [facility] 2021-12-23 00:00:00 2021-12-23 00:00:00 Abstract [facility] 1.2.840.114 350.1.13.10 4.2.7.2.686 [id number] [facility] 2021-12-23 00:00:00 2021-12-23 00:00:00 Abstract Nelson Trammell 1.2.840.1 79000.1.1 3.104.2.7 .3.163909 .8 [id number] [facility] 2021-10-20 15:10:00 2021-10-20 23:59:00 Outpatient R SALMAVENUBLAIRE CURTIS [facility] EHA [id number] [facility] 2021-10-20 15:10:00 2021-10-20 23:59:00 Hospital Encounter Blaire Mcgraw [facility] 1.2.840.114 350.1.13.10 4.2.7.2.686 [id number] [facility] 2021-10-20 15:10:00 2021-10-20 23:59:00 Hospital Encounter Blaire Mcgraw 1.2.840.1 11918.1.1 3.104.2.7 .3.275261 .8 [id number] [facility] 2021-07-27 22:35:00 2021-07-28 02:22:00 Emergency E HILDA FARIA [facility] [address] [facility] 2021-07-26 04:37:00 2021-07-26 18:20:00 Outpatient X SANTANA HERNANDEZ [facility] CARLO [id number] [facility] 2021-07-26 04:37:00 2021-07-26 18:20:00 Emergency Leonardo, Santana Landeros [facility] 1.114 350.1.13.10 4.2.7.2.686 [id number] [facility] 2021-01-29 08:30:00 2021-01-29 08:30:00 Outpatient R [facility] [id number] [facility] 2021-01-18 00:00:00 2021-01-18 00:00:00 Case Management Lenka Robledo [facility] 1..114 350.1.13.10 4.2.7.2.686 [id number] [facility] 2021-01-09 00:00:00 2021-01-09 00:00:00 Patient Secure [facility] 1..114 350.1.13.10 4.2.7.2.686 [id number] 134 [id number] [facility] 2021-01-01 08:04:37 2021-01-01 09:21:20 Office Visit [facility] [facility] 1.84114 350.1.13.10 4.2.7.2.686 [id number] [facility] 2021-01-01 08:00:00 2021-01-01 08:00:00 Outpatient R [facility] [id number] [facility] 2021-01-01 00:00:00 2021-01-01 00:00:00 Orders Only Doctor Unassigned, [place] [facility] 1.114 350.1.13.10 4.2.7.2.686 [id number] [id number] [facility] 2020-08-19 08:00:00 2020-08-19 08:00:00 Outpatient Connie ROBLEDO LENKA [facility] [id number] [facility] 2020-07-22 00:00:00 2020-07-22 00:00:00 Orders Only Doctor Unassigned, [place] [facility] 1.2.840.114 350.1.13.10 4.2.7.2.686 [id number] 2020-07-14 00:00:00 2020-07-14 00:00:00 Orders Only Doctor Unassigned, [place] [facility] 1.2.840.114 350.1.13.10 4.2.7.2.686 [id number] [id number] 2020-07-09 00:00:00 2020-07-09 00:00:00 Case Management [place] [facility] 1.2.840.114 350.1.13.10 4.2.7.2.686 [id number] 2020-07-01 14:30:00 2020-07-01 14:30:00 Outpatient SPRING NOVAK [facility] [id number] [facility] 2020-06-30 14:29:00 2020-06-30 21:29:00 Emergency E ISAIAH FARRIS [facility] [address] [facility] 2020-06-04 13:00:00 2020-06-04 13:00:00 [id number] 2020-04-29 11:00:00 2020-04-29 11:00:00 Outpatient Connie MONTOYA [facility] [id number] [facility] 2020-04-11 09:00:00 2020-04-11 09:00:00 Outpatient Connie MONTOYA [facility] [id number] [facility] 2020-04-09 11:00:00 2020-04-09 11:00:00 Outpatient KATINA MILLAN [facility] [id number] [facility] 2020-03-17 15:15:00 2020-03-17 15:15:00 Outpatient SPRING NOVAK [facility] [id number] [facility] 2020-02-25 13:00:00 2020-02-25 13:00:00 Outpatient LENKA MOMIN [facility] [id number] [facility] 2019-09-11 15:00:00 2019-09-11 15:00:00 Outpatient SPRING NOVAK [facility] [id number] [facility] Results Test Description Test Time Test Comments Results Result Co mments Source URINE SAMPLE: CLEAN CATCHurinalysis [id number] 16:13:00* Test Item Value Reference Range Interpretation Comme nts UA color (test code = UA color) STRAW yellow UA appearance (test code = UA appearance) CLEAR clear UA glucose dipstick (test code = UA glucose dipstick) NEGATIVE neg UA bilirubin dipstick (test code = UA bilirubin dipstick) NEGATIVE neg UA ketone dipstick (test code = UA ketone dipstick) NEGATIVE neg UA specific gravity (test code = UA specific gravity) 1.003 1.001-1.035 UA blood dipstick (test code = UA blood dipstick) 3+ neg A UA pH dipstick (test code = UA pH dipstick) 6.0 5-9 UA protein dipstick (test code = UA protein dipstick) NEGATIVE neg UA urobiliniogen dipstick (test code = UA urobiliniogen dipstick) NEGATIVE neg UA nitrite dipstick (test code = UA nitrite dipstick) NEG neg UA leukocyte esterase dipstick (test code = UA leukocyte esterase dipstick) 1+ neg A UA WBC (test code = UA WBC) 6-10 none seen A UA RBC (test code = UA RBC) TOO NUMEROUS TO CNT none seen A UA epithelial cells (test code = UA epithelial cells) RARE rare-few UA bacteria (test code = UA bacteria) RARE rare-few performing lab: (test code = performing lab[id number] 06:05:00* Test Item Value Reference Range Interpretation Comme nts AG HEPATITIS B SURFACE (test code = HBSAG) NON REACTIVE NONREACTIVE AB HEPATITIS C [id number] 06:05:00* Test Item Value Reference Range Interpretation Comme nts AB HEPATITIS C (test code = HCVAB) NONREACTIVE NONREACTIVE SIGNAL TO CUTOFF (test code = CUTOFF) 0.03 <0.80 N AB [id number] 06:05:00* Test Item Value Reference Range Interpretation Comme nts AB TREPONEMA (test code = TREPAB) NONREACTIVE NONREACTIVE AB HIV 1 06:05:00* Test Item Value Reference Range Interpretation Comme nts AB HIV 1 2 (test code = NZQ60ND) NONREACTIVE NONREACTIVE Done by Siemens studdexauElectrochaea 4th Gen HIV Ag/Ab Combo Screen CBC W/AUTO [id number] 04:13:00* Test Item Value Reference Range Interpretation Comme nts WHITE BLOOD CELL (test code = WBC) 15.0 K/mm3 6.5-12.3 H RED BLOOD CELL (test code = RBC) 3.82 M/mm3 3.51-4.69 N HEMOGLOBIN (test code = HGB) 9.6 g/dL 10.1-13.8 L HEMATOCRIT (test code = HCT) 30.5 % 32.5-41.8 L MEAN CELL VOLUME (test code = MCV) 79.8 fL 84.6-96.6 L MEAN CELL HGB (test code = MCH) 25.1 pg 27.3-33.9 L MEAN CELL HGB CONCETRATION ( test code = MCHC) 31.5 gm/dL 32.0-34.2 L RED CELL DISTRIBUTION WIDTH (test code = RDW) 14.6 % 12.2-16.3 N PLATELET COUNT (test code = PLT) 365 K/mm3 134-363 H MEAN PLATELET VOLUME (test c ode = MPV) 11.1 fL 9.2-12.7 N NEUTROPHIL % (test code = NT%) 73.8 % 57.9-77.3 N LYMPHOCYTE % (test code = LY%) 18.2 % 14.5-29.7 N MONOCYTE % (test code = MO%) 6.7 % 3.6-10.2 N EOSINOPHIL % (test code = EO%) 0.3 % 0.0-3.0 N BASOPHIL % (test code = BA%) 0.3 % 0.1-0.9 N NEUTROPHIL # (test code = NT#) 11.1 K/mm3 LYMPHOCYTE # (test code = LY#) 2.7 K/mm3 MONOCYTE # (test code = MO#) 1.0 K/mm3 EOSINOPHIL # (test code = EO#) 0.05 K/mm3 BASOPHIL # (test code = BA#) 0.1 K/mm3 CBC W Auto Differential panel - [id number] 04:00:00* Test Item Value Reference Range Interpretation Comme nts white blood cell (test code = white blood cell) 15.0 K/mm3 6.5-12.3 H red blood cell (test code = red blood cell) 3.82 M/mm3 3.51-4.69 hemoglobin (test code = hemoglobin) 9.6 g/dL 10.1-13.8 L hematocrit (test code = hematocrit) 30.5 % 32.5-41.8 L mean cell volume (test code = mean cell volume) 79.8 fL 84.6-96.6 L mean cell HGB (test code = m yandel cell HGB) 25.1 pg 27.3-33.9 L mean cell HGB concetration ( test code = mean cell HGB concetration) 31.5 gm/dL 32.0-34.2 L red cell distribution width (test code = red cell distribution width) 14.6 % 12.2-16.3 platelet count (test code = platelet count) 365 K/mm3 134-363 H mean platelet volume (test c ode = mean platelet volume) 11.1 fL 9.2-12.7 neutrophil % (test code = neutrophil %) 73.8 % 57.9-77.3 lymphocyte % (test code = lymphocyte %) 18.2 % 14.5-29.7 monocyte % (test code = mono cyte %) 6.7 % 3.6-10.2 eosinophil % (test code = eosinophil %) 0.3 % 0.0-3.0 basophil % (test code = baso merry %) 0.3 % 0.1-0.9 neutrophil # (test code = neutrophil #) 11.1 K/mm3 lymphocyte # (test code = lymphocyte #) 2.7 K/mm3 monocyte # (test code = mono cyte #) 1.0 K/mm3 eosinophil # (test code = eosinophil #) 0.05 K/mm3 basophil # (test code = baso merry #) 0.1 K/mm3 performing lab: (test code = performing lab:) [facility] [Presence] in [id number] 04:00:00* Test Item Value Reference Range Interpretation Comme nts Ag hepatitis B surface (test code = Ag hepatitis B surface) NON REACTIVE nonreactive performing lab: (test code = performing lab:) [facility] hepatitis C [id number] 04:00:00* Test Item Value Reference Range Interpretation Comme nts Ab hepatitis C (test code = Ab hepatitis C) NONREACTIVE nonreactive signal to cutoff (test code = signal to cutoff) 0.03 <0.80 performing lab: (test code = performing lab:) [facility] [id number] 04:00:00* Test Item Value Reference Range Interpretation Comme nts Ab treponema (test code = Ab treponema) NONREACTIVE nonreactive performing lab: (test code = performing lab:) [facility] HIV 1 04:00:00* Test Item Value Reference Range Interpretation Comme nts Ab HIV 1 2 (test code = Ab H IV 1 2) NONREACTIVE nonreactive performing lab: (test code = performing lab:) [facility] [id number] 03:17:00* Test Item Value Reference Range Interpretation Comme nts SODIUM (test code = NA) 141 mEq/L 136-145 N POTASSIUM (test code = K) 3.9 mEq/L 3.4-4.5 N CHLORIDE (test code = CL) 108 mEq/L 98-107 H CARBON DIOXIDE (test code = CO2) 20 mEq/L 20-31 N Please note ne w normal range as of Jun 2024 ANION GAP (test code = GAP) 17 10-20 N GLUCOSE (test code = GLU) 97 mg/dL 74-106 N BLOOD UREA NITROGEN (test code = BUN) 8 mg/dL 8-23 N CREATININE (test code = CREAT) 0.6 mg/dL 0.55-1.02 N TOTAL PROTEIN (test code = PROT) 6.5 g/dL 5.7-8.2 N ALBUMIN (test code = ALB) 4.0 g/dL 3.2-4.8 N CALCIUM (test code = CA) 9.7 mg/dL 8.3-10.6 N BILIRUBIN TOTAL (test code = BILT) 0.3 mg/dL 0.3-1.2 N SGOT/AST (test code = AST) 20 units/L < 34 SGPT/ALT (test code = ALT) 9 units/L 10-49 L ALKALINE PHOSPHATASE TOTAL (test code = ALKP) 167 units/L 46-116 H GLOMERULAR FILTRATION RATE (test code = GFR) 127.67 ml/min >60 N The Glomerular Filtration Rate is a calculated parameterbased on serum Creatinine, patient age and sex. GFR valuesless than 60 mL/min/1.73 square meters are indicative ofChronic Kidney Disease. Values less than 15 mL/min/1.73square meters indicate Kidney failure. The calculation forGFR is based on the CKD-EPI (2020) calculation. This formulais race indifferent and is the recommended formula for GFRby the National Kidney Foundation for Adults.The GFR will not calculate if the sex is unknown or if thepatient's age is <18 years. URIC [id number] 03:17:00* Test Item Value Reference Range Interpretation Comme nts URIC ACID (test code = URIC) 5.1 mg/dL 3.1-7.8 N Please note new normal range as of August 2023 LACTIC DEHYDROGENASE(LDH)2024-11-12 03:17:00* Test Item Value Reference Range Interpretation Comme nts LACTIC DEHYDROGENASE(LDH) (test code = LDH) 156 units/L 120-246 N Please note ne w normal range as of August 2023 CBC W/AUTO [id number] 02:56:00* Test Item Value Reference Range Interpretation Comme nts WHITE BLOOD CELL (test code = WBC) 15.2 K/mm3 6.5-12.3 H RED BLOOD CELL (test code = RBC) 3.85 M/mm3 3.51-4.69 N HEMOGLOBIN (test code = HGB) 9.6 g/dL 10.1-13.8 L HEMATOCRIT (test code = HCT) 31.0 % 32.5-41.8 L MEAN CELL VOLUME (test code = MCV) 80.5 fL 84.6-96.6 L MEAN CELL HGB (test code = MCH) 24.9 pg 27.3-33.9 L MEAN CELL HGB CONCETRATION ( test code = MCHC) 31.0 gm/dL 32.0-34.2 L RED CELL DISTRIBUTION WIDTH (test code = RDW) 14.7 % 12.2-16.3 N PLATELET COUNT (test code = PLT) 367 K/mm3 134-363 H MEAN PLATELET VOLUME (test c ode = MPV) 10.7 fL 9.2-12.7 N NEUTROPHIL % (test code = NT%) 74.8 % 57.9-77.3 N LYMPHOCYTE % (test code = LY%) 17.6 % 14.5-29.7 N MONOCYTE % (test code = MO%) 6.4 % 3.6-10.2 N EOSINOPHIL % (test code = EO%) 0.2 % 0.0-3.0 N BASOPHIL % (test code = BA%) 0.3 % 0.1-0.9 N NEUTROPHIL # (test code = NT#) 11.4 K/mm3 LYMPHOCYTE # (test code = LY#) 2.7 K/mm3 MONOCYTE # (test code = MO#) 1.0 K/mm3 EOSINOPHIL # (test code = EO#) 0.03 K/mm3 BASOPHIL # (test code = BA#) 0.1 K/mm3 UR PROTEIN/CREATININE [id number] 02:56:00* Test Item Value Reference Range Interpretation Comme nts UR PROTEIN RANDOM (test code = PROTU) 7 mg/dL No reference range available UR CREATININE RANDOM (test code = CREATU) 23 mg/dL No referenc e range available PROTEIN/CREATININE RATIO (test code = P/CRATIO) 304.3 mg/gcrea <200 H CBC W Auto Differential panel - [id number] 02:47:00* Test Item Value Reference Range Interpretation Comme nts white blood cell (test code = white blood cell) 15.2 K/mm3 6.5-12.3 H red blood cell (test code = red blood cell) 3.85 M/mm3 3.51-4.69 hemoglobin (test code = hemoglobin) 9.6 g/dL 10.1-13.8 L hematocrit (test code = hematocrit) 31.0 % 32.5-41.8 L mean cell volume (test code = mean cell volume) 80.5 fL 84.6-96.6 L mean cell HGB (test code = m yandel cell HGB) 24.9 pg 27.3-33.9 L mean cell HGB concetration ( test code = mean cell HGB concetration) 31.0 gm/dL 32.0-34.2 L red cell distribution width (test code = red cell distribution width) 14.7 % 12.2-16.3 platelet count (test code = platelet count) 367 K/mm3 134-363 H mean platelet volume (test c ode = mean platelet volume) 10.7 fL 9.2-12.7 neutrophil % (test code = neutrophil %) 74.8 % 57.9-77.3 lymphocyte % (test code = lymphocyte %) 17.6 % 14.5-29.7 monocyte % (test code = mono cyte %) 6.4 % 3.6-10.2 eosinophil % (test code = eosinophil %) 0.2 % 0.0-3.0 basophil % (test code = baso merry %) 0.3 % 0.1-0.9 neutrophil # (test code = neutrophil #) 11.4 K/mm3 lymphocyte # (test code = lymphocyte #) 2.7 K/mm3 monocyte # (test code = mono cyte #) 1.0 K/mm3 eosinophil # (test code = eosinophil #) 0.03 K/mm3 basophil # (test code = baso merry #) 0.1 K/mm3 performing lab: (test code = performing lab:) [facility] MedicalComprehensive metabolic 2000 panel - Serum or [id number] 02:47:00* Test Item Value Reference Range Interpretation Comme nts sodium (test code = sodium) 141 mEq/L 136-145 potassium (test code = potassium) 3.9 mEq/L 3.4-4.5 chloride (test code = chloride) 108 mEq/L 98-107 H carbon dioxide (test code = carbon dioxide) 20 mEq/L 20-31 anion gap (test code = anion gap) 17 10-20 glucose (test code = glucose) 97 mg/dL 74-106 blood urea nitrogen (test co de = blood urea nitrogen) 8 mg/dL 8-23 glomerular filtration rate (test code = glomerular filtration rate) 127.67 mL/min >60 creatinine (test code = creatinine) 0.6 mg/dL 0.55-1.02 total protein (test code = total protein) 6.5 g/dL 5.7-8.2 albumin (test code = albumin) 4.0 g/dL 3.2-4.8 calcium (test code = calcium) 9.7 mg/dL 8.3-10.6 bilirubin total (test code = bilirubin total) 0.3 mg/dL 0.3-1.2 SGOT/AST (test code = SGOT/AST) 20 units/L < 34 SGPT/ALT (test code = SGPT/ALT) 9 units/L 10-49 L alkaline phosphatase total (test code = alkaline phosphatase total) 167 units/L 46-116 H performing lab: (test code = performing lab:) [facility] Medicaluric [id number] 02:47:00* Test Item Value Reference Range Interpretation Comme nts uric acid (test code = uric acid) 5.1 mg/dL 3.1-7.8 performing lab: (test code = performing lab:) [facility] MedicalLactate dehydrogenase [Enzymatic activity/volume] in Serum or [id number] 02:47:00* Test Item Value Reference Range Interpretation Comme nts lactic dehydrogenase(LDH) (t est code = lactic dehydrogenase(LDH)) 156 units/L 120-246 performing lab: (test code = performing lab:) [facility] MedicalURINALYSIS [id number] 02:43:00* Test Item Value Reference Range Interpretation Comme nts UA COLOR (test code = COLU) YELLOW YELLOW UA APPEARANCE (test code = APPU) CLOUDY CLEAR A UA GLUCOSE DIPSTICK (test code = DGLUU) NEGATIVE NEG UA BILIRUBIN DIPSTICK (test code = BILU) NEGATIVE NEG UA KETONE DIPSTICK (test code = KETU) TRACE NEG A UA SPECIFIC GRAVITY (test code = SGU) 1.005 1.001-1.035 N UA BLOOD DIPSTICK (test code = JEREMY) 1+ NEG A UA PH DIPSTICK (test code = JUNG) 6.0 5-9 UA PROTEIN DIPSTICK (test code = PROU) NEGATIVE NEG UA UROBILINIOGEN DIPSTICK (test code = URO) NEGATIVE mg/dL NEG UA NITRITE DIPSTICK (test code = ADINA) NEG NEG UA LEUKOCYTE ESTERASE DIPSTICK (test code = LEUU) 2+ NEG A UA WBC (test code = WBCU) 6-10 #/hpf NONE SEEN A UA RBC (test code = RBCU) 6-10 #/hpf NONE SEEN A UA EPITHELIAL CELLS (test code = EPIU) TOO NUMEROUS TO CNT #/HPF RARE-FEW A UA BACTERIA (test code = BACU) RARE /HPF RARE-FEW URINE SAMPLE: CLEAN CATCHurinalysis [id number] 02:28:00* Test Item Value Reference Range Interpretation Comme nts UA color (test code = UA color) YELLOW yellow UA appearance (test code = UA appearance) CLOUDY clear A UA glucose dipstick (test code = UA glucose dipstick) NEGATIVE neg UA bilirubin dipstick (test code = UA bilirubin dipstick) NEGATIVE neg UA ketone dipstick (test code = UA ketone dipstick) TRACE neg A UA specific gravity (test code = UA specific gravity) 1.005 1.001-1.035 UA blood dipstick (test code = UA blood dipstick) 1+ neg A UA pH dipstick (test code = UA pH dipstick) 6.0 5-9 UA protein dipstick (test code = UA protein dipstick) NEGATIVE neg UA urobiliniogen dipstick (test code = UA urobiliniogen dipstick) NEGATIVE neg UA nitrite dipstick (test code = UA nitrite dipstick) NEG neg UA leukocyte esterase dipstick (test code = UA leukocyte esterase dipstick) 2+ neg A UA WBC (test code = UA WBC) 6-10 none seen A UA RBC (test code = UA RBC) 6-10 none seen A UA epithelial cells (test code = UA epithelial cells) TOO NUMEROUS TO CNT rare-few A UA bacteria (test code = UA bacteria) RARE rare-few performing lab: (test code = performing lab:) [facility] MedicalProtein/Creatinine [Mass Ratio] in [id number] 02:28:00* Test Item Value Reference Range Interpretation Comme nts ur protein random (test code = ur protein random) 7 mg/dL ur creatinine random (test code = ur creatinine random) 23 mg/dL protein/creatinine ratio (te st code = protein/creatinine ratio) 304.3 mg/gcrea <200 H performing lab: (test code = performing lab:) [facility]atha BenavidesUR PROTEIN [id number] 22:54:00* Test Item Value Reference Range Interpretation Comme nts UR PROTEIN RANDOM (test code = PROTU) 8 mg/dL No reference range available UR PROTEIN 24HR (test code = [id number]) 216 mg/24HR 20-150 H UR VOLUME (test code = VOL) 2700 ml STARTED 09/21/24 AT 2050 TO 09/22/242047COMPREHENSIVE METABOLIC [id number] 17:49:00* Test Item Value Reference Range Interpretation Comme nts SODIUM (test code = NA) 139 mEq/L 136-145 N POTASSIUM (test code = K) 3.8 mEq/L 3.4-4.5 N CHLORIDE (test code = CL) 108 mEq/L 98-107 H CARBON DIOXIDE (test code = CO2) 22 mEq/L 20-31 N Please note ne w normal range as of Jun 2024 ANION GAP (test code = GAP) 13 10-20 N GLUCOSE (test code = GLU) 87 mg/dL 74-106 N BLOOD UREA NITROGEN (test code = BUN) <5 mg/dL 8-23 L CREATININE (test code = CREAT) 0.4 mg/dL 0.55-1.02 L TOTAL PROTEIN (test code = PROT) 7.0 g/dL 5.7-8.2 N ALBUMIN (test code = ALB) 4.3 g/dL 3.2-4.8 N CALCIUM (test code = CA) 9.0 mg/dL 8.3-10.6 N BILIRUBIN TOTAL (test code = BILT) 0.4 mg/dL 0.3-1.2 N SGOT/AST (test code = AST) 25 units/L < 34 SGPT/ALT (test code = ALT) 33 units/L 10-49 N ALKALINE PHOSPHATASE TOTAL (test code = ALKP) 121 units/L 46-116 H GLOMERULAR FILTRATION RATE (test code = GFR) 141.65 ml/min >60 N The Glomerular Filtration Rate is a calculated parameterbased on serum Creatinine, patient age and sex. GFR valuesless than 60 mL/min/1.73 square meters are indicative ofChronic Kidney Disease. Values less than 15 mL/min/1.73square meters indicate Kidney failure. The calculation forGFR is based on the CKD-EPI (2020) calculation. This formulais race indifferent and is the recommended formula for GFRby the National Kidney Foundation for Adults.The GFR will not calculate if the sex is unknown or if thepatient's age is <18 years. URIC [id number] 17:49:00* Test Item Value Reference Range Interpretation Comme nts URIC ACID (test code = URIC) 3.0 mg/dL 3.1-7.8 L Please note new normal range as of August 2023 LACTIC DEHYDROGENASE(LDH)2024-09-21 17:49:00* Test Item Value Reference Range Interpretation Comme nts LACTIC DEHYDROGENASE(LDH) (test code = LDH) 134 units/L 120-246 N Please note ne w normal range as of August 2023 UR PROTEIN/CREATININE [id number] 17:40:00* Test Item Value Reference Range Interpretation Comme nts UR PROTEIN RANDOM (test code = PROTU) <6 mg/dL No reference range available UR CREATININE RANDOM (test code = CREATU) 12 mg/dL No referenc e range available PROTEIN/CREATININE RATIO (test code = P/CRATIO) <200.0 mg/gcrea <200 URINALYSIS [id number] 17:35:00* Test Item Value Reference Range Interpretation Comme nts UA COLOR (test code = COLU) STRAW YELLOW UA APPEARANCE (test code = APPU) Slightly-Cloudy CLEAR UA GLUCOSE DIPSTICK (test code = DGLUU) NEGATIVE NEG UA BILIRUBIN DIPSTICK (test code = BILU) NEGATIVE NEG UA KETONE DIPSTICK (test cod e = KETU) NEGATIVE NEG UA SPECIFIC GRAVITY (test code = SGU) 1.002 1.001-1.035 N UA BLOOD DIPSTICK (test code = JEREMY) NEG NEG UA PH DIPSTICK (test code = JUNG) 7.0 5-9 UA PROTEIN DIPSTICK (test code = PROU) NEGATIVE NEG UA UROBILINIOGEN DIPSTICK (test code = URO) NEGATIVE mg/dL NEG UA NITRITE DIPSTICK (test code = ADINA) NEG NEG UA LEUKOCYTE ESTERASE DIPSTICK (test code = LEUU) 1+ NEG A UA WBC (test code = WBCU) 3-5 #/hpf NONE SEEN A UA RBC (test code = RBCU) 0-2 #/hpf NONE SEEN UA EPITHELIAL CELLS (test code = EPIU) FEW #/HPF RARE-FEW UA MUCUS (test code = MUCU) RARE NONE SEEN UA AMORPHOUS SEDIMENT (test code = AMORU) RARE URINE SAMPLE: CLEAN CATCHCBC W/AUTO [id number] 17:33:00* Test Item Value Reference Range Interpretation Comme nts WHITE BLOOD CELL (test code = WBC) 13.6 K/mm3 6.5-12.3 H RED BLOOD CELL (test code = RBC) 4.05 M/mm3 3.51-4.69 N HEMOGLOBIN (test code = HGB) 11.0 g/dL 10.1-13.8 N HEMATOCRIT (test code = HCT) 35.1 % 32.5-41.8 N MEAN CELL VOLUME (test code = MCV) 86.7 fL 84.6-96.6 N MEAN CELL HGB (test code = MCH) 27.2 pg 27.3-33.9 L MEAN CELL HGB CONCETRATION ( test code = MCHC) 31.3 gm/dL 32.0-34.2 L RED CELL DISTRIBUTION WIDTH (test code = RDW) 13.1 % 12.2-16.3 N PLATELET COUNT (test code = PLT) 367 K/mm3 134-363 H MEAN PLATELET VOLUME (test c ode = MPV) 10.4 fL 9.2-12.7 N NEUTROPHIL % (test code = NT%) 80.3 % 57.9-77.3 H LYMPHOCYTE % (test code = LY%) 12.7 % 14.5-29.7 L MONOCYTE % (test code = MO%) 6.0 % 3.6-10.2 N EOSINOPHIL % (test code = EO%) 0.1 % 0.0-3.0 N BASOPHIL % (test code = BA%) 0.2 % 0.1-0.9 N NEUTROPHIL # (test code = NT#) 10.9 K/mm3 LYMPHOCYTE # (test code = LY#) 1.7 K/mm3 MONOCYTE # (test code = MO#) 0.8 K/mm3 EOSINOPHIL # (test code = EO#) 0.01 K/mm3 BASOPHIL # (test code = BA#) 0.0 K/mm3 urinalysis, [id number] 00:00:00* Test Item Value Reference Range Interpretation Comme nts WBC (test code = WBC) 0-5 0-5 RBC (test code = RBC) None seen 0-2 epithelial cells (non renal) (test code = epithelial cells (non renal)) >10 0-10 A epithelial cells (renal) (te st code = epithelial cells (renal)) Comment casts (test code = casts) None seen none seen cast type (test code = cast type) Comment crystals (test code = crystals) Comment crystal type (test code = cr ystal type) Comment mucus threads (test code = m ucus threads) Comment bacteria (test code = bacteria) Many none seen/few A yeast (test code = yeast) Comment trichomonas (test code = trichomonas) Comment comment (test code = comment) Comment [facility] MedicalBacteria identified in Urine by [id number] 00:00:00* Test Item Value Reference Range Interpretation Comme nts urine culture, routine (test code = urine culture, routine) FINAL REPORT result 1 (test code = result 1) COMMENT [facility] MedicalUrinalysis macro (dipstick) panel - [id number] 00:00:00* Test Item Value Reference Range Interpretation Comme nts specific gravity (test code = specific gravity) 1.025 1.005-1.030 pH (test code = pH) 7.0 5.0-7.5 urine-color (test code = urine-color) YELLOW yellow appearance (test code = appearance) CLOUDY clear A WBC esterase (test code = WB C esterase) 1+ negative A protein (test code = protein) 1+ negative/trace A glucose (test code = glucose) 1+ negative A ketones (test code = ketones) TRACE negative A occult blood (test code = oc cult blood) NEGATIVE negative bilirubin (test code = bilirubin) COMMENT urobilinogen,semi-qn (test c ode = urobilinogen,semi-qn) 1.0 mg/dL 0.2-1.0 nitrite, urine (test code = nitrite, urine) NEGATIVE negative microscopic examination (cassidy t code = microscopic examination) SEE BELOW: [facility] MedicalCBC W Auto Differential panel - [id number] 00:00:00* Test Item Value Reference Range Interpretation Comme nts WBC (test code = WBC) 13.0 10 3.7-12.0 H RBC (test code = RBC) 4.00 10 3.60-5.50 HGB (test code = HGB) 11.2 g/dL 11.5-15.6 L HCT (test code = HCT) 36.1 % 34.5-46.5 MCV (test code = MCV) 90.2 um 80.0-102.0 MCH (test code = MCH) 28.0 pg 25.0-34.1 MCHC (test code = MCHC) 31.0 g/dL 29.0-35.0 RDW (test code = RDW) 14.2 % 10.9-16.9 plt (test code = plt) 369 10 136-392 MPV (test code = MPV) 9.7 um 7.4-11.1 gran % (test code = gran %) 80.3 % 36.0-78.0 H lymph % (test code = lymph %) 14.9 % 12.0-48.0 mono % (test code = mono %) 4.1 % 0.0-13.0 eos % (test code = eos %) 0 % 0-8 baso % (test code = baso %) 0 % 0-2 gran # (test code = gran #) 10.5 10 1.2-6.8 H lymph # (test code = lymph #) 1.9 10 0.7-3.2 mono # (test code = mono #) 0.5 10 0.1-0.8 eos # (test code = eos #) 0.1 10 0.0-0.4 baso # (test code = baso #) 0.0 10 0.0-0.2 [facility] MedicalUR[facility] [id number] 18:41:00* Test Item Value Reference Range Interpretation Comme nts UA COLOR (test code = COLU) YELLOW YELLOW UA APPEARANCE (test code = APPU) Slightly-Cloudy CLEAR UA GLUCOSE DIPSTICK (test code = DGLUU) NEGATIVE NEG UA BILIRUBIN DIPSTICK (test code = BILU) NEGATIVE NEG UA KETONE DIPSTICK (test cod e = KETU) NEGATIVE NEG UA SPECIFIC GRAVITY (test code = SGU) 1.004 1.001-1.035 N UA BLOOD DIPSTICK (test code = JEREMY) NEG NEG UA PH DIPSTICK (test code = JUNG) 6.0 5-9 UA PROTEIN DIPSTICK (test code = PROU) NEGATIVE NEG UA UROBILINIOGEN DIPSTICK (test code = URO) NEGATIVE mg/dL NEG UA NITRITE DIPSTICK (test code = ADINA) NEG NEG UA LEUKOCYTE ESTERASE DIPSTICK (test code = LEUU) TRACE NEG A UA WBC (test code = WBCU) 3-5 #/hpf NONE SEEN A UA RBC (test code = RBCU) 0-2 #/hpf NONE SEEN UA EPITHELIAL CELLS (test code = EPIU) FEW #/HPF RARE-FEW UA MUCUS (test code = MUCU) RARE NONE SEEN URINE SAMPLE: CLEAN CATCHgest. diabetes 1-HR [id number] 00:00:00* Test Item Value Reference Range Interpretation Comme nts gestational diabetes screen (test code = gestational diabetes screen) 114 mg/dL 70-139 [facility] [id number] [facility]:00* Test Item Value Reference Range Interpretation Comme nts please note (test code = please note) [facility] [id number] 09:31:00* Test Item Value Reference Range Interpretation Comme nts WHITE BLOOD CELL (test code = WBC) 14.0 K/mm3 6.5-12.3 H RED BLOOD CELL (test code = RBC) 3.50 M/mm3 3.51-4.69 L HEMOGLOBIN (test code = HGB) 10.1 g/dL 10.1-13.8 Results verified by repeat analysis HEMATOCRIT (test code = HCT) 31.6 % 32.5-41.8 L MEAN CELL VOLUME (test code = MCV) 90.3 fL 84.6-96.6 N MEAN CELL HGB (test code = MCH) 28.9 pg 27.3-33.9 N MEAN CELL HGB CONCETRATION (test code = MCHC) 32.0 gm/dL 32.0-34.2 N RED CELL DISTRIBUTION WIDTH (test code = RDW) 13.0 % 12.2-16.3 N PLATELET COUNT (test code = PLT) 308 K/mm3 134-363 N MEAN PLATELET VOLUME (test code = MPV) 10.4 fL 9.2-12.7 N NEUTROPHIL % (test code = NT%) 74.7 % 57.9-77.3 N LYMPHOCYTE % (test code = LY%) 17.0 % 14.5-29.7 N MONOCYTE % (test code = MO%) 6.8 % 3.6-10.2 N EOSINOPHIL % (test code = EO%) 0.5 % 0.0-3.0 N BASOPHIL % (test code = BA%) 0.3 % 0.1-0.9 N NEUTROPHIL # (test code = NT#) 10.5 K/mm3 LYMPHOCYTE # (test code = LY#) 2.4 K/mm3 MONOCYTE # (test code = MO#) 1.0 K/mm3 EOSINOPHIL # (test code = EO#) 0.07 K/mm3 BASOPHIL # (test code = BA#) 0.0 K/mm3 CBC W Auto Differential panel - [id number] 08:53:00* Test Item Value Reference Range Interpretation Comme nts white blood cell (test code = white blood cell) 14.0 K/mm3 6.5-12.3 H red blood cell (test code = red blood cell) 3.50 M/mm3 3.51-4.69 L hemoglobin (test code = hemoglobin) 10.1 g/dL 10.1-13.8 hematocrit (test code = hematocrit) 31.6 % 32.5-41.8 L mean cell volume (test code = mean cell volume) 90.3 fL 84.6-96.6 mean cell HGB (test code = m yandel cell HGB) 28.9 pg 27.3-33.9 mean cell HGB concetration ( test code = mean cell HGB concetration) 32.0 gm/dL 32.0-34.2 red cell distribution width (test code = red cell distribution width) 13.0 % 12.2-16.3 platelet count (test code = platelet count) 308 K/mm3 134-363 mean platelet volume (test c ode = mean platelet volume) 10.4 fL 9.2-12.7 neutrophil % (test code = neutrophil %) 74.7 % 57.9-77.3 lymphocyte % (test code = lymphocyte %) 17.0 % 14.5-29.7 monocyte % (test code = mono cyte %) 6.8 % 3.6-10.2 eosinophil % (test code = eosinophil %) 0.5 % 0.0-3.0 basophil % (test code = baso merry %) 0.3 % 0.1-0.9 neutrophil # (test code = neutrophil #) 10.5 K/mm3 lymphocyte # (test code = lymphocyte #) 2.4 K/mm3 monocyte # (test code = mono cyte #) 1.0 K/mm3 eosinophil # (test code = eosinophil #) 0.07 K/mm3 basophil # (test code = baso merry #) 0.0 K/mm3 performing lab: (test code = performing lab:) [facility] Medicalblood [id number] 16:50:00* Test Item Value Reference Range Interpretation Comme nts blood culture (test code = b lood culture) See Below performing lab: (test code = performing lab:) [facility] (82181)2024-08-17 16:43:57* Test Item Value Reference Range Interpretation Comme nts NA (test code = 4222117469) 135 mmol/L 135-145 K (test code = 2492575914) 3.8 mmol/L 3.5-5.0 CL (test code = 3001820022) 103 mmol/L 98-108 CO2 TOTAL (test code = 4849154185) 22 mmol/L 23-31 L AGAP (test code = 7860661266) 10 2-16 BUN (test code = 3271843580) 4 mg/dL 7-23 L GLUCOSE (test code = 3257600358) 90 mg/dL 70-110 CREATININE (test code = 2160-0) 0.33 mg/dL 0.50-1.04 L TOTAL BILI (test code = 6684889960) 0.4 mg/dL 0.1-1.1 CALCIUM (test code = 0426626173) 8.7 mg/dL 8.6-10.6 T PROTEIN (test code = 3906771586) 7.2 g/dL 6.3-8.2 ALBUMIN (test code = 9735275016) 3.9 g/dL 3.5-5.0 ALK PHOS (test code = 6574807192) 114 U/L 34-122 ALTv (test code = 1742-6) 30 U/L 5-35 AST(SGOT) (test code = 1117473149) 46 U/L 13-40 H eGFR (test code = 86837-9) 148.7 mL/min/1.73m2 CKD-EPI eGFR (2020). Assuming creatinine has been stable day-to-day for at least three months, the eGFR indicates Category G1 (>= 90 mL/min/1.73 m2) Lab Interpretation (test code = 87091-8) [facility] [id number] 16:42:00* Test Item Value Reference Range Interpretation Comme nts blood culture (test code = b lood culture) See Below performing lab: (test code = performing lab:) [facility] Medicalurine [id number] 16:07:00* Test Item Value Reference Range Interpretation Comme nts urine culture (test code = u rine culture) See Below performing lab: (test code = performing lab:) [facility] MedicalProthrombin time (PT)2024-08-17 15:50:00* Test Item Value Reference Range Interpretation Comme nts prothrombin time patient (te st code = prothrombin time patient) 11.1 secs 9.8-13.3 performing lab: (test code = performing lab:) [facility] Medicalinternational normal [id number] 15:50:00* Test Item Value Reference Range Interpretation Comme nts international normal ratio ( test code = international normal ratio) 0.98 performing lab: (test code = performing lab:) [facility] Medicalthromboplastin time [id number] 15:50:00* Test Item Value Reference Range Interpretation Comme nts thromboplastin time partial (test code = thromboplastin time partial) 28 secs 26.2-37.2 performing lab: (test code = performing lab:) [facility] MedicalUA rflx micr cult if [id number] 15:40:00* Test Item Value Reference Range Interpretation Comme nts UA color (test code = UA color) YELLOW yellow UA appearance (test code = U A appearance) CLOUDY clear A UA glucose dipstick (test co de = UA glucose dipstick) NEGATIVE neg UA bilirubin dipstick (test code = UA bilirubin dipstick) NEGATIVE neg UA ketone dipstick (test cod e = UA ketone dipstick) 1+ neg A UA specific gravity (test co de = UA specific gravity) >1.035 1.001-1.035 H UA blood dipstick (test code = UA blood dipstick) NEG neg UA pH dipstick (test code = UA pH dipstick) 6.0 5-9 UA protein dipstick (test co de = UA protein dipstick) 1+ neg A UA urobiliniogen dipstick (t est code = UA urobiliniogen dipstick) NEGATIVE neg UA nitrite dipstick (test co de = UA nitrite dipstick) NEG neg UA leukocyte esterase dipsti ck (test code = UA leukocyte esterase dipstick) 2+ neg A UA WBC (test code = UA WBC) 21-30 none seen A UA RBC (test code = UA RBC) 6-10 none seen A UA epithelial cells (test co de = UA epithelial cells) MODERATE rare-few A performing lab: (test code = performing lab:) [facility]jatha BenavidesAhpstzyJ-Oqxnu0125-58-18 15:04:46* Test Item Value Reference Range Interpretation Comments D-DIMER (test code = 1426680899) 1.64 See_Comment H [Automated message] The system which generated this result transmitted reference range: <0.50 ?g/mL (FEU). The reference range was not used to interpret this result as normal/abnormal. PATRICK (test code = PATRICK) This test may be used in conjunction with a clinical pretest probability (PTP) assessment model to exclude venous thromboembolism (VTE) in patients suspected of deep venous thrombosis (DVT) and pulmonary embolism (PE) A D-Dimer value less than 0.50 ?g/ml (FEU) has a negative predicative value of 96 to 100% (95% CI)and 97 to 100% (95% CI) as an aid in the diagnosis of deep vein thrombosis (DVT) and pulmonary embolism when there is low or moderate pretest probability of PE or DVT. D-Dimer values are expressed in initial fibrinogen equivalent units (FEU)" The assay results should be used with other information, including the clinical context, in forming a diagnosis. Lab Interpretation (test code = 46964-5) Abnormal [facility] WITH [id number] 14:47:26* Test Item Value Reference Range Interpretation Comme nts WBC (test code = 6690-2) 13.4 4.30-11.10 H RBC (test code = 789-8) 3.76 3.93-5.25 L HGB (test code = 718-7) 11.1 g/dL 11.6-15.0 L HCT (test code = 4544-3) 34 % 35.7-45.2 L MCV (test code = 787-2) 90.4 fL 80.6-95.5 MCH (test code = 785-6) 29.5 pg 25.9-32.8 MCHC (test code = 786-4) 32.6 g/dL 31.6-35.1 RDW-SD (test code = 04574-9) 42.5 fL 39.0-49.9 RDW-CV (test code = 788-0) 13 % 12.0-15.5 PLT (test code = 777-3) 315 166-358 MPV (test code = 80918-8) 10.8 fL 9.5-12.9 NRBC/100 WBC (test code = 7166440613) 0 0.0-10.0 NRBC x10^3 (test code = 7043023013) See_Comment [Automated message] The system which generated this result transmitted reference range: 10*3/?L. The reference range was not used to interpret this result as normal/abnormal. GRAN MAT (NEUT) % (test code = 770-8) 75.6 % IMM GRAN % (test code = 3653208080) 0.7 % LYMPH % (test code = 736-9) 15.9 % MONO % (test code = 5905-5) 7.1 % EOS % (test code = 713-8) 0.4 % BASO % (test code = 706-2) 0.3 % GRAN MAT x10^3(ANC) (test code = 7478488064) 10.13 10*3/uL 1.88-7.09 H IMM GRAN x10^3 (test code = 8927695392) 0.09 10*3/uL 0.00-0.06 H LYMPH x10^3 (test code = 731-0) 2.13 10*3/uL 1.32-3.29 MONO x10^3 (test code = 742-7) 0.95 10*3/uL 0.33-0.92 H EOS x10^3 (test code = 711-2) 0.06 10*3/uL 0.03-0.39 BASO x10^3 (test code = 704-7) 0.04 10*3/uL 0.01-0.07 Lab Interpretation (test code = 69752-5) [facility]normal [facility]CBC [facility]AUTO [id number] 17:52:00* Test Item Value Reference Range Interpretation Comme nts WHITE BLOOD CELL (test code = WBC) 13.7 K/mm3 6.5-12.3 H RED BLOOD CELL (test code = RBC) 3.99 M/mm3 3.51-4.69 N HEMOGLOBIN (test code = HGB) 11.7 g/dL 10.1-13.8 N HEMATOCRIT (test code = HCT) 36.0 % 32.5-41.8 N MEAN CELL VOLUME (test code = MCV) 90.2 fL 84.6-96.6 N MEAN CELL HGB (test code = MCH) 29.3 pg 27.3-33.9 N MEAN CELL HGB CONCETRATION ( test code = MCHC) 32.5 gm/dL 32.0-34.2 N RED CELL DISTRIBUTION WIDTH (test code = RDW) 13.0 % 12.2-16.3 N PLATELET COUNT (test code = PLT) 360 K/mm3 134-363 N MEAN PLATELET VOLUME (test c ode = MPV) 11.2 fL 9.2-12.7 N NEUTROPHIL % (test code = NT%) 71.6 % 57.9-77.3 N LYMPHOCYTE % (test code = LY%) 18.7 % 14.5-29.7 N MONOCYTE % (test code = MO%) 8.1 % 3.6-10.2 N EOSINOPHIL % (test code = EO%) 0.6 % 0.0-3.0 N BASOPHIL % (test code = BA%) 0.3 % 0.1-0.9 N NEUTROPHIL # (test code = NT#) 9.8 K/mm3 LYMPHOCYTE # (test code = LY#) 2.6 K/mm3 MONOCYTE # (test code = MO#) 1.1 K/mm3 EOSINOPHIL # (test code = EO#) 0.08 K/mm3 BASOPHIL # (test code = BA#) 0.0 K/mm3 COMPREHENSIVE METABOLIC [id number] 17:40:00* Test Item Value Reference Range Interpretation Comme nts SODIUM (test code = NA) 141 mEq/L 136-145 N POTASSIUM (test code = K) 4.1 mEq/L 3.4-4.5 N CHLORIDE (test code = CL) 106 mEq/L 98-107 N CARBON DIOXIDE (test code = CO2) 26 mEq/L 20-31 N Please note ne w normal range as of Jun 2024 ANION GAP (test code = GAP) 13 10-20 N GLUCOSE (test code = GLU) 90 mg/dL 74-106 N BLOOD UREA NITROGEN (test code = BUN) 6 mg/dL 8-23 L CREATININE (test code = CREAT) 0.5 mg/dL 0.55-1.02 L TOTAL PROTEIN (test code = PROT) 6.9 g/dL 5.7-8.2 N ALBUMIN (test code = ALB) 4.4 g/dL 3.2-4.8 N CALCIUM (test code = CA) 9.5 mg/dL 8.3-10.6 N BILIRUBIN TOTAL (test code = BILT) 0.3 mg/dL 0.3-1.2 N SGOT/AST (test code = AST) 50 units/L < 34 H SGPT/ALT (test code = ALT) 91 units/L 10-49 H ALKALINE PHOSPHATASE TOTAL (test code = ALKP) 78 units/L 46-116 N GLOMERULAR FILTRATION RATE (test code = GFR) 134.23 ml/min >60 N The Glomerular Filtration Rate is a calculated parameterbased on serum Creatinine, patient age and sex. GFR valuesless than 60 mL/min/1.73 square meters are indicative ofChronic Kidney Disease. Values less than 15 mL/min/1.73square meters indicate Kidney failure. The calculation forGFR is based on the CKD-EPI (2020) calculation. This formulais race indifferent and is the recommended formula for GFRby the National Kidney Foundation for Adults.The GFR will not calculate if the sex is unknown or if thepatient's age is <18 years. Comprehensive metabolic 2000 panel - Serum or [id number] 17:00:00* Test Item Value Reference Range Interpretation Comme nts sodium (test code = sodium) 141 mEq/L 136-145 potassium (test code = potassium) 4.1 mEq/L 3.4-4.5 chloride (test code = chloride) 106 mEq/L 98-107 carbon dioxide (test code = carbon dioxide) 26 mEq/L 20-31 anion gap (test code = anion gap) 13 10-20 glucose (test code = glucose) 90 mg/dL 74-106 blood urea nitrogen (test co de = blood urea nitrogen) 6 mg/dL 8-23 L glomerular filtration rate (test code = glomerular filtration rate) 134.23 mL/min >60 creatinine (test code = creatinine) 0.5 mg/dL 0.55-1.02 L total protein (test code = total protein) 6.9 g/dL 5.7-8.2 albumin (test code = albumin) 4.4 g/dL 3.2-4.8 calcium (test code = calcium) 9.5 mg/dL 8.3-10.6 bilirubin total (test code = bilirubin total) 0.3 mg/dL 0.3-1.2 SGOT/AST (test code = SGOT/AST) 50 units/L < 34 H SGPT/ALT (test code = SGPT/ALT) 91 units/L 10-49 H alkaline phosphatase total (test code = alkaline phosphatase total) 78 units/L 46-116 performing lab: (test code = performing lab:) [facility] Auto Differential panel - [id number] 17:00:00* Test Item Value Reference Range Interpretation Comme nts white blood cell (test code = white blood cell) 13.7 K/mm3 6.5-12.3 H red blood cell (test code = red blood cell) 3.99 M/mm3 3.51-4.69 hemoglobin (test code = hemoglobin) 11.7 g/dL 10.1-13.8 hematocrit (test code = hematocrit) 36.0 % 32.5-41.8 mean cell volume (test code = mean cell volume) 90.2 fL 84.6-96.6 mean cell HGB (test code = m yandel cell HGB) 29.3 pg 27.3-33.9 mean cell HGB concetration ( test code = mean cell HGB concetration) 32.5 gm/dL 32.0-34.2 red cell distribution width (test code = red cell distribution width) 13.0 % 12.2-16.3 platelet count (test code = platelet count) 360 K/mm3 134-363 mean platelet volume (test c ode = mean platelet volume) 11.2 fL 9.2-12.7 neutrophil % (test code = neutrophil %) 71.6 % 57.9-77.3 lymphocyte % (test code = lymphocyte %) 18.7 % 14.5-29.7 monocyte % (test code = mono cyte %) 8.1 % 3.6-10.2 eosinophil % (test code = eosinophil %) 0.6 % 0.0-3.0 basophil % (test code = baso merry %) 0.3 % 0.1-0.9 neutrophil # (test code = neutrophil #) 9.8 K/mm3 lymphocyte # (test code = lymphocyte #) 2.6 K/mm3 monocyte # (test code = mono cyte #) 1.1 K/mm3 eosinophil # (test code = eosinophil #) 0.08 K/mm3 basophil # (test code = baso merry #) 0.0 K/mm3 performing lab: (test code = performing lab:) [facility] MedicalRUPTURE OF [id number] 16:07:00* Test Item Value Reference Range Interpretation Comme nts RUPTURE OF MEMBRANES (test c ode = ROM) NON-RUPTURED urine [id number] 15:35:00* Test Item Value Reference Range Interpretation Comme nts urine culture (test code = u rine culture) See Below performing lab: (test code = performing lab:) [facility] MedicalUA RFLX MICR CULT IF [id number] 15:35:00* Test Item Value Reference Range Interpretation Comme nts UA COLOR (test code = COLU) YELLOW YELLOW UA APPEARANCE (test code = APPU) Slightly-Cloudy CLEAR UA GLUCOSE DIPSTICK (test code = DGLUU) NEGATIVE NEG UA BILIRUBIN DIPSTICK (test code = BILU) NEGATIVE NEG UA KETONE DIPSTICK (test cod e = KETU) TRACE NEG A UA SPECIFIC GRAVITY (test code = SGU) 1.005 1.001-1.035 N UA BLOOD DIPSTICK (test code = JEREMY) NEG NEG UA PH DIPSTICK (test code = JUNG) 7.0 5-9 UA PROTEIN DIPSTICK (test code = PROU) NEGATIVE NEG UA UROBILINIOGEN DIPSTICK (test code = URO) NEGATIVE mg/dL NEG UA NITRITE DIPSTICK (test code = ADINA) NEG NEG UA LEUKOCYTE ESTERASE DIPSTICK (test code = LEUU) TRACE NEG A UA WBC (test code = WBCU) 6-10 #/hpf NONE SEEN A UA RBC (test code = RBCU) 0-2 #/hpf NONE SEEN UA EPITHELIAL CELLS (test code = EPIU) MODERATE #/HPF RARE-FEW A UA BACTERIA (test code = BACU) FEW /HPF RARE-FEW UA MUCUS (test code = MUCU) RARE NONE SEEN UA AMORPHOUS SEDIMENT (test code = AMORU) RARE Indication for culture: Suprapubic PainSpecimen Description: CLEAN CATCHUA rflx micr cult if [id number] 14:30:00* Test Item Value Reference Range Interpretation Comme nts UA color (test code = UA color) YELLOW yellow UA appearance (test code = U A appearance) Slightly-Cloudy clear UA glucose dipstick (test code = UA glucose dipstick) NEGATIVE neg UA bilirubin dipstick (test code = UA bilirubin dipstick) NEGATIVE neg UA ketone dipstick (test cod e = UA ketone dipstick) TRACE neg A UA specific gravity (test code = UA specific gravity) 1.005 1.001-1.035 UA blood dipstick (test code = UA blood dipstick) NEG neg UA pH dipstick (test code = UA pH dipstick) 7.0 5-9 UA protein dipstick (test code = UA protein dipstick) NEGATIVE neg UA urobiliniogen dipstick (test code = UA urobiliniogen dipstick) NEGATIVE neg UA nitrite dipstick (test code = UA nitrite dipstick) NEG neg UA leukocyte esterase dipstick (test code = UA leukocyte esterase dipstick) TRACE neg A UA WBC (test code = UA WBC) 6-10 none seen A UA RBC (test code = UA RBC) 0-2 none seen UA epithelial cells (test code = UA epithelial cells) MODERATE rare-few A UA bacteria (test code = UA bacteria) FEW rare-few UA mucus (test code = UA mucus) RARE none seen UA amorphous sediment (test code = UA amorphous sediment) RARE performing lab: (test code = performing lab:) [facility] VvrcixjBcfrx-8-Aubkummenuhdd.placental [Presence] in Vaginal fluid 2024-06-29 14:30:00* Test Item Value Reference Range Interpretation Comme nts rupture of membranes (test c ode = rupture of membranes) NON-RUPTURED performing lab: (test code = performing lab:) [facility] OtoffptDsaqj-5-Zyznklfnakc panel - Serum or [id number] 00:00:00* Test Item Value Reference Range Interpretation Comme nts results (test code = results) REPORT test results: (test code = test results:) *SCREEN NEGATIVE* gest. age on collection date (test code = gest. age on collection date) 16.1 weeks gestat. age based on (test code = gestat. age based on) CLOTILDE maternal age at clotilde (test code = maternal [age] at clotilde) 25[age]1 yr race (test code = race) OTHER weight (test code = weight) 200 [lb av] insulin dep diabetes (test code = insulin dep diabetes) NO multiple gestation (test code = multiple gestation) NO AFP value (test code = AFP value) 19.5 NG/mL AFP MOM (test code = AFP MOM) 0.70 OSBR risk 1 in (test code = OSBR risk 1 in) 03537 interpretation (test code = interpretation) COMMENT comment: (test code = comment:) COMMENT pdf (test code = pdf) . [facility] Medicalurinalysis, [id number] 00:00:00* Test Item Value Reference Range Interpretation Comme nts WBC (test code = WBC) 11-30 0-5 A RBC (test code = RBC) None seen 0-2 epithelial cells (non renal) (test code = epithelial cells (non renal)) >10 0-10 A casts (test code = casts) None seen none seen bacteria (test code = bacteria) Moderate none seen/few A [facility] MedicalBlood group antibody screen [Presence] in Serum or Plasma 2024-05-12 00:00:00* Test Item Value Reference Range Interpretation Comme nts antibody screen (test code = antibody screen) NEGATIVE negative [facility] MedicalHepatitis B virus surface Ag [Presence] in Serum or Plasma by [id number] 00:00:00* Test Item Value Reference Range Interpretation Comme nts HBsAg screen (test code = HB sAg screen) NEGATIVE negative [facility] MedicalABO grouping and rho(D) [id number] 00:00:00* Test Item Value Reference Range Interpretation Comme nts ABO grouping (test code = AB O grouping) O Rh factor (test code = Rh factor) POSITIVE [facility] MedicalChlamydia trachomatis and Neisseria gonorrhoeae rRNA panel - Specimen by HERIBERTO with probe [id number] 00:00:00* Test Item Value Reference Range Interpretation Comme nts chlamydia trachomatis, HERIBERTO ( test code = chlamydia trachomatis, HERIBERTO) NEGATIVE negative neisseria gonorrhoeae, HERIBERTO ( test code = neisseria gonorrhoeae, HERIBERTO) NEGATIVE negative [facility] MedicalHIV Ab/P24 Ag with [id number] 00:00:00* Test Item Value Reference Range Interpretation Comme nts HIV Ab/P24 Ag screen (test c ode = HIV Ab/P24 Ag screen) NON REACTIVE non reactive [facility] MedicalHCV antibody rfx to quant [id number] 00:00:00* Test Item Value Reference Range Interpretation Comme nts HCV Ab (test code = HCV Ab) NON REACTIVE non reactive [facility] MedicalUrinalysis macro (dipstick) panel - [id number] 00:00:00* Test Item Value Reference Range Interpretation Comme nts specific gravity (test code = specific gravity) 1.008 1.005-1.030 pH (test code = pH) 6.5 5.0-7.5 urine-color (test code = urine-color) YELLOW yellow appearance (test code = appearance) CLEAR clear WBC esterase (test code = WB C esterase) TRACE negative A protein (test code = protein) NEGATIVE negative/trace glucose (test code = glucose) NEGATIVE negative ketones (test code = ketones) NEGATIVE negative occult blood (test code = oc cult blood) NEGATIVE negative bilirubin (test code = bilirubin) NEGATIVE negative urobilinogen,semi-qn (test c ode = urobilinogen,semi-qn) 0.2 mg/dL 0.2-1.0 nitrite, urine (test code = nitrite, urine) NEGATIVE negative microscopic examination (cassidy t code = microscopic examination) SEE BELOW: [facility] MedicalRubella virus IgG Ab [Units/volume] in Serum or Plasma by [id number] 00:00:00* Test Item Value Reference Range Interpretation Comme nts rubella antibodies, IgG (test code = rubella antibodies, IgG) 2.59 index See_Comment [Automated messa ge] The system which generated this result transmitted reference range: immune >0.99. The reference range was not used to interpret this result as normal/abnormal. [facility] Medicalinterpretation:2024-05-12 00:00:00* Test Item Value Reference Range Interpretation Comme nts interpretation: (test code = interpretation:) SPRCS [facility] MedicalT pallidum screening [id number] 00:00:00* Test Item Value Reference Range Interpretation Comme nts T pallidum antibodies (test code = T pallidum antibodies) NON REACTIVE non reactive [facility] MedicalBacteria identified in Urine by [id number] 00:00:00* Test Item Value Reference Range Interpretation Comme nts urine culture, routine (test code = urine culture, routine) FINAL REPORT result 1 (test code = result 1) MUG [facility] MedicalChromosome 13+18+21+X+Y aneuploidy in Blood by Molecular genetics method [id number] 00:00:00* Test Item Value Reference Range Interpretation Comme nts report summary (test code = report summary) LOW RISK report note (test code = report note) SEE NOTES trisomy 13 age-based risk text (test code = trisomy 13 age-based risk text) 1/6,930 (0.01%) trisomy 13 risk score text (test code = trisomy 13 risk score text) <1/10,000 (<0.01%) trisomy 13 result text (test code = trisomy 13 result text) LOW RISK trisomy 18 age-based risk text (test code = trisomy 18 age-based risk text) 1/2,200 (0.05%) trisomy 18 risk score text (test code = trisomy 18 risk score text) <1/10,000 (<0.01%) trisomy 18 result text (test code = trisomy 18 result text) LOW RISK trisomy 21 age-based risk text (test code = trisomy 21 age-based risk text) 1/946 (0.11%) trisomy 21 risk score text (test code = trisomy 21 risk score text) <1/10,000 (<0.01%) trisomy 21 result text (test code = trisomy 21 result text) LOW RISK monosomy X age-based risk text (test code = monosomy X age-based risk text) 1/255 (0.39%) monosomy X risk score text (test code = monosomy X risk score text) <1/10,000 (<0.01%) monosomy X result text (test code = monosomy X result text) LOW RISK triploidy result text (test code = triploidy result text) LOW RISK gender of fetus (test code = gender of fetus) FEMALE fraction (test code = fraction) 9.9% footnotes (test code = footnotes) SEE NOTES [facility] Auto Differential panel - [id number] 00:00:00* Test Item Value Reference Range Interpretation Comme nts WBC (test code = WBC) 11.1 10 3.7-12.0 RBC (test code = RBC) 4.23 10 3.60-5.50 HGB (test code = HGB) 12.6 g/dL 11.5-15.6 HCT (test code = HCT) 38.1 % 34.5-46.5 MCV (test code = MCV) 90.1 um 80.0-102.0 MCH (test code = MCH) 29.7 pg 25.0-34.1 MCHC (test code = MCHC) 32.9 g/dL 29.0-35.0 RDW (test code = RDW) 14.3 % 10.9-16.9 plt (test code = plt) 292 10 136-392 MPV (test code = MPV) 9.6 um 7.4-11.1 gran % (test code = gran %) 72.4 % 36.0-78.0 lymph % (test code = lymph %) 18.9 % 12.0-48.0 mono % (test code = mono %) 7.5 % 0.0-13.0 eos % (test code = eos %) 1 % 0-8 baso % (test code = baso %) 1 % 0-2 gran # (test code = gran #) 8.1 10 1.2-6.8 H lymph # (test code = lymph #) 2.1 10 1.2-3.2 mono # (test code = mono #) 0.8 10 0.3-0.8 eos # (test code = eos #) 0.1 10 0.0-0.4 baso # (test code = baso #) 0.1 10 0.0-0.2 [facility] [id number] 17:32:00* Test Item Value Reference Range Interpretation Comme [facility] TOTAL PROTEIN (test code = PROT) 7.5 g/dL 5.7-8.2 N Please note new normal range as of August 2023 ALBUMIN (test code = ALB) 4.6 g/dL 3.2-4.8 N Please note new normal range as of August 2023 BILIRUBIN TOTAL (test code = BILT) 0.3 mg/dL 0.3-1.2 N Please note new normal range as of August 2023 BILIRUBIN DIRECT (test code = BILD) 0.1 mg/dL < 0.3 N Please note new normal range as of August 2023 SGOT/AST (test code = AST) 19 units/L < 34 SGPT/ALT (test code = ALT) 22 units/L 10-49 N ALKALINE PHOSPHATASE TOTAL (test code = ALKP) 73 units/L 46-116 N Please note new normal range as of August 2023 [id number] 17:32:00* Test Item Value Reference Range Interpretation Comme [facility] LIPASE (test code = LIP) 33 units/L 12-53 N Please note new normal range as of August 2023 BASIC METABOLIC [id number] 17:32:00* Test Item Value Reference Range Interpretation Comme [facility] SODIUM (test code = NA) 137 mEq/L 136-145 N POTASSIUM (test code = K) 3.9 mEQ/L 3.4-4.5 N Please note new normal range as of August 2023 CHLORIDE (test code = CL) 107 mEq/L 98-107 N Please note new normal range as of August 2023 CARBON DIOXIDE (test code = CO2) 24 mEq/L 22-31 N ANION GAP (test code = GAP) 9.9 10-20 L GLUCOSE (test code = GLU) 89 mg/dL 74-106 N Please note new normal range as of August 2023 BLOOD UREA NITROGEN (test code = BUN) 9 mg/dL 8-23 N Please note ne w normal range as of August 2023 CREATININE (test code = CREAT) 0.6 mg/dL 0.55-1.02 N Please note new normal range as of August 2023 CALCIUM (test code = CA) 9.1 mg/dL 8.3-10.6 N Please note new normal range as of August 2023 GLOMERULAR FILTRATION RATE (test code = GFR) 128.46 ml/min >60 N The Glomerular Filtration Rate is a calculated parameterbased on serum Creatinine, patient age and sex. GFR valuesless than 60 mL/min/1.73 square meters are indicative ofChronic Kidney Disease. Values less than 15 mL/min/1.73square meters indicate Kidney failure. The calculation forGFR is based on the CKD-EPI (2020) calculation. This formulais race indifferent and is the recommended formula for GFRby the National Kidney Foundation for Adults.The GFR will not calculate if the sex is unknown or if thepatient's age is <18 years. UA RFLX MICR CULT IF [id number] 17:22:00* Test Item Value Reference Range Interpretation Comme nts UA COLOR (test code = COLU) YELLOW YELLOW UA APPEARANCE (test code = APPU) CLOUDY CLEAR A UA GLUCOSE DIPSTICK (test co de = DGLUU) NEGATIVE NEG UA BILIRUBIN DIPSTICK (test code = BILU) NEGATIVE NEG UA KETONE DIPSTICK (test cod e = KETU) NEGATIVE NEG UA SPECIFIC GRAVITY (test co de = SGU) 1.025 1.001-1.035 N UA BLOOD DIPSTICK (test code = JEREMY) NEG NEG UA PH DIPSTICK (test code = JUNG) 6.0 5-9 UA PROTEIN DIPSTICK (test co de = PROU) NEGATIVE NEG UA UROBILINIOGEN DIPSTICK (test code = URO) NEGATIVE mg/dL NEG UA NITRITE DIPSTICK (test co de = ADINA) NEG NEG UA LEUKOCYTE ESTERASE DIPSTI CK (test code = LEUU) 2+ NEG A UA WBC (test code = WBCU) 0-2 #/hpf NONE SEEN UA RBC (test code = RBCU) 3-5 #/hpf NONE SEEN A UA EPITHELIAL CELLS (test co de = EPIU) MODERATE #/HPF RARE-FEW A UA BACTERIA (test code = BACU) RARE /HPF RARE-FEW UA MUCUS (test code = MUCU) 1+ NONE SEEN UA AMORPHOUS SEDIMENT (test code = AMORU) RARE Indication for culture: Suprapubic PainSpecimen Description: CLEAN CATCHCBC W/O [id number] 17:05:00* Test Item Value Reference Range Interpretation Comme nts WHITE BLOOD CELL (test code = WBC) 12.2 K/mm3 6.5-12.3 N RED BLOOD CELL (test code = RBC) 4.16 M/mm3 3.51-4.69 N HEMOGLOBIN (test code = HGB) 12.4 g/dL 10.1-13.8 N HEMATOCRIT (test code = HCT) 37.9 % 32.5-41.8 N MEAN CELL VOLUME (test code = MCV) 91.1 fL 84.6-96.6 N MEAN CELL HGB (test code = MCH) 29.8 pg 27.3-33.9 N MEAN CELL HGB CONCETRATION ( test code = MCHC) 32.7 gm/dL 32.0-34.2 N RED CELL DISTRIBUTION WIDTH (test code = RDW) 12.9 % 12.2-16.3 N PLATELET COUNT (test code = PLT) 310 K/mm3 134-363 N MEAN PLATELET VOLUME (test c ode = MPV) 10.8 fL 9.2-12.7 N Choriogonadotropin.intact+Beta subunit [Units/volume] in Serum or Plasma 2024-03-23 00:00:00* Test Item Value Reference Range Interpretation Comme nts HCG,beta subunit,qnt,serum ( test code = HCG,beta subunit,qnt,serum) 841 mIU/mL [facility] MedicalHPV DNA, genotypes 16+18, [id number] 00:00:00* Test Item Value Reference Range Interpretation Comme nts HPV high risk DNA (non 16/18 ) (test code = HPV high risk DNA (non 16/18)) detected not detected A HPV high risk DNA type 16 (t est code = HPV high risk DNA type 16) not detected not detected HPV high risk DNA type 18 (t est code = HPV high risk DNA type 18) not detected not detected [facility] Medicalpregnancy test, [id number] 11:34:00* Test Item Value Reference Range Interpretation Comme nts HCG (test code = HCG) negative [facility] Medicalpap, LB + reflex to HR HPV if [id number] 00:00:00* Test Item Value Reference Range Interpretation Comme nts LMP date: (test code = LMP date:) 06/25/2023 Pap, liquid-based (test code = Pap, liquid-based) asc-H nilm A source (liquid-based cytology): (test code = source (liquid-based cytology):) cervical-vaginal [facility] METABOLIC PANEL (10954)2022-11-11 18:43:38* Test Item Value Reference Range Interpretation Comme nts NA (test code = 6717898067) 141 mmol/L 135-145 K (test code = 8028767068) 3.6 mmol/L 3.5-5.0 CL (test code = 4002400664) 106 mmol/L 98-108 CO2 TOTAL (test code = 4773458817) 24 mmol/L 23-31 AGAP (test code = 1415633324) 11 2-16 BUN (test code = 8763717099) 10 mg/dL 7-23 GLUCOSE (test code = 2109780727) 90 mg/dL 70-110 CREATININE (test code = 2355891602) 0.54 mg/dL 0.50-1.04 TOTAL BILI (test code = 1359221027) 0.5 mg/dL 0.1-1.1 CALCIUM (test code = 1779539625) 8.6 mg/dL 8.6-10.6 T PROTEIN (test code = 9420839114) 7.5 g/dL 6.3-8.2 ALBUMIN (test code = 5393015519) 4.3 g/dL 3.5-5.0 ALK PHOS (test code = 2683167532) 79 U/L 34-122 ALTv (test code = 1742-6) 17 U/L 5-35 AST(SGOT) (test code = 5629729976) 22 U/L 13-40 eGFR (test code = 1842034619) 139.9 mL/min/1.73m2 PATRICK (test code = PATRICK) Association of Glomerular Filtration Rate (GFR) and Staging of Kidney Disease* + + +- +| GFR (mL/min/1.73 m2) ?| With Kidney Damage ?| ?Without Kidney Damage+ ------+ ----+ ------+| ?>90 ?| ?Stage one ?| ? Normal ?+ -+ + -+| ?60-89 ?| ?Stage two ?| ? Decreased GFR ? + + +- +| ?30-59 ?| ?Stage three ?| ? Stage three ? + + +- +| ?15-29 ?| ?Stage four ? | ? Stage four ?+ -+ + -+| ?<15 (or dialysis) ? ?| ?Stage five ? | ? Stage five ?+ -+ + -+ *Each stage assumes the associated GFR level has been in effect for at least three months. ?Stages 1 to 5, with or without kidney disease, indicate chronic kidney disease. Notes: Determination of stages one and two (with eGFR >59mL/min/1.73 m2) requires estimation of kidney damage for at least three months as defined by structural or functional abnormalities of the kidney, manifested by either:Pathological abnormalities or Markers of kidney damage (including abnormalities in the composition of the blood or urine or abnormalities in imaging tests). [facility] WITH [id number] 18:19:55* Test Item Value Reference Range Interpretation Comme nts WBC (test code = 6690-2) 9.51 See_Comment [Automated Red Seraphim] The system which generated this result transmitted reference range: 4.30 - 11.10 10*3/?L. The reference range was not used to interpret this result as normal/abnormal. RBC (test code = 789-8) 4.21 See_Comment [Automile] The system which generated this result transmitted reference range: 3.93 - 5.25 10*6/?L. The reference range was not used to interpret this result as normal/abnormal. HGB (test code = 718-7) 12.5 g/dL 11.6-15.0 HCT (test code = 4544-3) 38.0 % 35.7-45.2 MCV (test code = 787-2) 90.3 fL 80.6-95.5 MCH (test code = 785-6) 29.7 pg 25.9-32.8 MCHC (test code = 786-4) 32.9 g/dL 31.6-35.1 RDW-SD (test code = 08818-4) 42.4 fL 39.0-49.9 RDW-CV (test code = 788-0) 13.0 % 12.0-15.5 PLT (test code = 777-3) 279 See_Comment [Automated messa ge] The system which generated this result transmitted reference range: 166 - 358 10*3/?L. The reference range was not used to interpret this result as normal/abnormal. MPV (test code = 43538-0) 10.6 fL 9.5-12.9 NRBC/100 WBC (test code = 4791369118) 0.0 See_Comment [Automated me ssage] The system which generated this result transmitted reference range: 0.0 - 10.0 /100 WBCs. The reference range was not used to interpret this result as normal/abnormal. NRBC x10^3 (test code = 7447848937) See_Comment [Automated me ssage] The system which generated this result transmitted reference range: 10*3/?L. The reference range was not used to interpret this result as normal/abnormal. GRAN MAT (NEUT) % (test code = 770-8) 60.3 % IMM GRAN % (test code = 0796657841) 0.30 % LYMPH % (test code = 736-9) 29.5 % MONO % (test code = 5905-5) 8.1 % EOS % (test code = 713-8) 1.5 % BASO % (test code = 706-2) 0.3 % GRAN MAT x10^3(ANC) (test code = 6870530869) 5.73 10*3/uL 1.88-7.09 IMM GRAN x10^3 (test code = 4395384284) 0.03 10*3/uL 0.00-0.06 LYMPH x10^3 (test code = 731-0) 2.81 10*3/uL 1.32-3.29 MONO x10^3 (test code = 742-7) 0.77 10*3/uL 0.33-0.92 EOS x10^3 (test code = 711-2) 0.14 10*3/uL 0.03-0.39 BASO x10^3 (test code = 704-7) 0.03 10*3/uL 0.01-0.07 [facility] to HR HPV if [id number] 00:00:00* Test Item Value Reference Range Interpretation Comme nts Pap, liquid-based (test code = Pap, liquid-based) nilm nilm [facility] MedicalBacterial vaginosis and vaginitis DNA panel - Vaginal fluid by Probe with signal [id number] 00:00:00* Test Item Value Reference Range Interpretation Comme nts bacterial vaginosis (test co de = bacterial vaginosis) bv neg negative [facility] MedicalChlamydia trachomatis and Neisseria gonorrhoeae rRNA panel - Specimen by HERIBERTO with probe [id number] 00:00:00* Test Item Value Reference Range Interpretation Comme nts aptima combo 2 swab (CT) (te st code = aptima combo 2 swab (CT)) CT neg negative aptima combo 2 swab (GC) (te st code = aptima combo 2 swab (GC)) GC neg negative [facility] Medicaltrichomonas vaginalis swab (swhl) 2022-07-26 00:00:00* Test Item Value Reference Range Interpretation Comme nts trichomonas vaginalis swab ( test code = trichomonas vaginalis swab) trich neg negative [facility] MedicalTHYROID STIMULATING [id number] 19:45:32* Test Item Value Reference Range Interpretation Comme nts TSH (test code = 7575573279) 2.48 See_Comment [Automated Enomalya ge] The system which generated this result transmitted reference range: 0.45 - 4.70 mIU/L. The reference range was not used to interpret this result as normal/abnormal. Lab Interpretation (test code = 14125-6) Normal [facility] HospitalTHYROID STIMULATING [id number] 19:45:32 * Test Item Value Reference Range Interpretation Comme nts TSH (test code = 7012518155) 2.48 See_Comment [Automated Enomalya ge] The system which generated this result transmitted reference range: 0.45 - 4.70 mIU/L. The reference range was not used to interpret this result as normal/abnormal. Lab Interpretation (test code = 53867-4) Normal [facility] [id number] 19:45:32 * Test Item Value Reference Range Interpretation Comme nts TSH (test code = 6129023981) 2.48 See_Comment [Automated messa ge] The system which generated this result transmitted reference range: 0.45 - 4.70 mIU/L. The reference range was not used to interpret this result as normal/abnormal. Lab Interpretation (test code = 86323-3) Normal [facility] [id number] 19:33:31* Test Item Value Reference Range Interpretation Comme nts APTT Patient (test code = 3173-2) 29 See_Comment [Automated message] The system which generated this result transmitted reference range: 23 - 38 Seconds. The reference range was not used to interpret this result as normal/abnormal. PATRICK (test code = PATRICK) The [facility] patient population mean normal value for aPTT is 30 seconds. Lab Interpretation (test code = 44662-2) Normal [facility] [id number] 19:33:31* Test Item Value Reference Range Interpretation Comme nts APTT Patient (test code = 3173-2) 29 See_Comment [Automated message] The system which generated this result transmitted reference range: 23 - 38 Seconds. The reference range was not used to interpret this result as normal/abnormal. PATRICK (test code = PATRICK) The [facility] patient population mean normal value for aPTT is 30 seconds. Lab Interpretation (test code = 64979-3) Normal [facility] [id number] 19:33:31* Test Item Value Reference Range Interpretation Comme nts APTT Patient (test code = 3173-2) 29 See_Comment [Automated message] The system which generated this result transmitted reference range: 23 - 38 Seconds. The reference range was not used to interpret this result as normal/abnormal. PATRICK (test code = PATRICK) The [facility] patient population mean normal value for aPTT is 30 seconds. Lab Interpretation (test code = 89248-9) Normal [facility] HospitalProthrombin Time / [id number] 19:31:27* Test Item Value Reference Range Interpretation Comme [facility] PROTIME PATIENT (test code = 5964-2) 13.3 See_Comment [Automated messa ge] The system which generated this result transmitted reference range: 12.0 - 14.7 Seconds. The reference range was not used to interpret this result as normal/abnormal. INR (test code = 6301-6) 1.1 Normal INR <1.1; Warfarin Therapeutic range 2.0 to 3.0 or 2.5 to 3.5, depending upon the indications. Lab Interpretation (test code = 65411-7) Normal [facility] HospitalProthrombin [facility] / [id number] 19:31:27* Test Item Value Reference Range Interpretation Comme [facility] PROTIME PATIENT (test code = 5964-2) 13.3 See_Comment [Automated Red Seraphim] The system which generated this result transmitted reference range: 12.0 - 14.7 Seconds. The reference range was not used to interpret this result as normal/abnormal. INR (test code = 6301-6) 1.1 Normal INR <1.1; Warfarin Therapeutic range 2.0 to 3.0 or 2.5 to 3.5, depending upon the indications. Lab Interpretation (test code = 30522-4) Normal [facility] HospitalProthrombin Time / [id number] 19:31:27* Test Item Value Reference Range Interpretation Comme [facility] PROTIME PATIENT (test code = 5964-2) 13.3 See_Comment [Automated Red Seraphim] The system which generated this result transmitted reference range: 12.0 - 14.7 Seconds. The reference range was not used to interpret this result as normal/abnormal. INR (test code = 6301-6) 1.1 Normal INR <1.1; Warfarin Therapeutic range 2.0 to 3.0 or 2.5 to 3.5, depending upon the indications. Lab Interpretation (test code = 21084-9) [facility] HospitalCOM. METABOLIC PANEL ([id number])2022-07-21 19:29:47* Test Item Value Reference Range Interpretation Comme nts NA (test code = 3963199230) 139 mmol/L 135-145 K (test code = 7724705134) 5.1 mmol/L 3.5-5.0 H CL (test code = 1475547748) 104 mmol/L 98-108 CO2 TOTAL (test code = 1434260697) 26 mmol/L 23-31 AGAP (test code = 3613101838) 9 2-16 BUN (test code = 9232977276) 12 mg/dL 7-23 GLUCOSE (test code = 4063454061) 98 mg/dL 70-110 CREATININE (test code = 8532890587) 0.54 mg/dL 0.50-1.04 TOTAL BILI (test code = 6389598438) 0.5 mg/dL 0.1-1.1 CALCIUM (test code = 3693578803) 9.3 mg/dL 8.6-10.6 T PROTEIN (test code = 9930022776) 7.6 g/dL 6.3-8.2 ALBUMIN (test code = 8542955229) 4.5 g/dL 3.5-5.0 ALK PHOS (test code = 0299141345) 94 U/L 34-122 ALTv (test code = 1742-6) 21 U/L 5-35 AST(SGOT) (test code = 1416625242) 24 U/L 13-40 eGFR (test code = 2179855203) 141.2 mL/min/1.73m2 PATRICK (test code = PATRICK) Association of Glomerular Filtration Rate (GFR) and Staging of Kidney Disease* + --+ --+ ------+| GFR (mL/min/1.73 m2) ?| With Kidney Damage ?| ?Without Kidney Damage+ --------+ --------+ +| ?>90 ?| ?Stage one ?| ? Normal ?+ ---+ ---+ -------+| ?60-89 ?| ?Stage two ?| ? Decreased GFR ? + --+ --+ ------+| ?30-59 ?| ?Stage three ?| ? Stage three ? + --+ --+ ------+| ?15-29 ?| ?Stage four ? | ? Stage four ?+ ---+ ---+ -------+| ?<15 (or dialysis) ? ?| ?Stage five ? | ? Stage five ?+ ---+ ---+ -------+ *Each stage assumes the associated GFR level has been in effect for at least three months. ?Stages 1 to 5, with or without kidney disease, indicate chronic kidney disease. Notes: Determination of stages one and two (with eGFR >59mL/min/1.73 m2) requires estimation of kidney damage for at least three months as defined by structural or functional abnormalities of the kidney, manifested by either:Pathological abnormalities or Markers of kidney damage (including abnormalities in the composition of the blood or urine or abnormalities in imaging tests). Lab Interpretation (test code = 06495-1) Abnormal [facility]. METABOLIC PANEL ([id number])2022-07-21 19:29:47* Test Item Value Reference Range Interpretation Comme nts NA (test code = 4387205578) 139 mmol/L 135-145 K (test code = 8803325500) 5.1 mmol/L 3.5-5.0 H CL (test code = 8945535781) 104 mmol/L 98-108 CO2 TOTAL (test code = 6072685039) 26 mmol/L 23-31 AGAP (test code = 4109670617) 9 2-16 BUN (test code = 1839643533) 12 mg/dL 7-23 GLUCOSE (test code = 3395701560) 98 mg/dL 70-110 CREATININE (test code = 5175189782) 0.54 mg/dL 0.50-1.04 TOTAL BILI (test code = 4684101830) 0.5 mg/dL 0.1-1.1 CALCIUM (test code = 1646826508) 9.3 mg/dL 8.6-10.6 T PROTEIN (test code = 1648159365) 7.6 g/dL 6.3-8.2 ALBUMIN (test code = 8511427115) 4.5 g/dL 3.5-5.0 ALK PHOS (test code = 5235779038) 94 U/L 34-122 ALTv (test code = 1742-6) 21 U/L 5-35 AST(SGOT) (test code = 7418299692) 24 U/L 13-40 eGFR (test code = 5878389912) 141.2 mL/min/1.73m2 PATRICK (test code = PATRICK) Association of Glomerular Filtration Rate (GFR) and Staging of Kidney Disease* + --+ --+ ------+| GFR (mL/min/1.73 m2) ?| With Kidney Damage ?| ?Without Kidney Damage+ --------+ --------+ +| ?>90 ?| ?Stage one ?| ? Normal ?+ ---+ ---+ -------+| ?60-89 ?| ?Stage two ?| ? Decreased GFR ? + --+ --+ ------+| ?30-59 ?| ?Stage three ?| ? Stage three ? + --+ --+ ------+| ?15-29 ?| ?Stage four ? | ? Stage four ?+ ---+ ---+ -------+| ?<15 (or dialysis) ? ?| ?Stage five ? | ? Stage five ?+ ---+ ---+ -------+ *Each stage assumes the associated GFR level has been in effect for at least three months. ?Stages 1 to 5, with or without kidney disease, indicate chronic kidney disease. Notes: Determination of stages one and two (with eGFR >59mL/min/1.73 m2) requires estimation of kidney damage for at least three months as defined by structural or functional abnormalities of the kidney, manifested by either:Pathological abnormalities or Markers of kidney damage (including abnormalities in the composition of the blood or urine or abnormalities in imaging tests). Lab Interpretation (test code = 30915-9) Abnormal [facility]. METABOLIC PANEL ([id number])2022-07-21 19:29:47* Test Item Value Reference Range Interpretation Comme nts NA (test code = 4274696182) 139 mmol/L 135-145 K (test code = 9912499814) 5.1 mmol/L 3.5-5.0 H CL (test code = 4834275508) 104 mmol/L 98-108 CO2 TOTAL (test code = 6298609370) 26 mmol/L 23-31 AGAP (test code = 9306372050) 9 2-16 BUN (test code = 9630212756) 12 mg/dL 7-23 GLUCOSE (test code = 0813311955) 98 mg/dL 70-110 CREATININE (test code = 2447019507) 0.54 mg/dL 0.50-1.04 TOTAL BILI (test code = 7094386536) 0.5 mg/dL 0.1-1.1 CALCIUM (test code = 4791601321) 9.3 mg/dL 8.6-10.6 T PROTEIN (test code = 5924080055) 7.6 g/dL 6.3-8.2 ALBUMIN (test code = 6959256263) 4.5 g/dL 3.5-5.0 ALK PHOS (test code = 8158634510) 94 U/L 34-122 ALTv (test code = 1742-6) 21 U/L 5-35 AST(SGOT) (test code = 8331148142) 24 U/L 13-40 eGFR (test code = 1640606179) 141.2 mL/min/1.73m2 PATRICK (test code = PATRICK) Association of Glomerular Filtration Rate (GFR) and Staging of Kidney Disease* + --+ --+ ------+| GFR (mL/min/1.73 m2) ?| With Kidney Damage ?| ?Without Kidney Damage+ --------+ --------+ +| ?>90 ?| ?Stage one ?| ? Normal ?+ ---+ ---+ -------+| ?60-89 ?| ?Stage two ?| ? Decreased GFR ? + --+ --+ ------+| ?30-59 ?| ?Stage three ?| ? Stage three ? + --+ --+ ------+| ?15-29 ?| ?Stage four ? | ? Stage four ?+ ---+ ---+ -------+| ?<15 (or dialysis) ? ?| ?Stage five ? | ? Stage five ?+ ---+ ---+ -------+ *Each stage assumes the associated GFR level has been in effect for at least three months. ?Stages 1 to 5, with or without kidney disease, indicate chronic kidney disease. Notes: Determination of stages one and two (with eGFR >59mL/min/1.73 m2) requires estimation of kidney damage for at least three months as defined by structural or functional abnormalities of the kidney, manifested by either:Pathological abnormalities or Markers of kidney damage (including abnormalities in the composition of the blood or urine or abnormalities in imaging tests). Lab Interpretation (test code = 12726-8) Abnormal [facility] URINALYSIS W SPECIFIC [id number] 15:19:00* Test Item Value Reference Range Interpretation Comme nts POCT U SP GRAV (test code = 3255) 1.025 mg/dl 1.005-1.025 POCT PH U (test code = 3254) 5 mg/dl 5-8 POCT U LEUK EST (test code = 3263) + Negative - Negative POCT U NIT (test code = 3262) neg Negative - Negati ve POCT U PROT (test code = 3259) neg Negative - Negative POCT U GLU (test code = 3256) neg Negative - Negati ve POCT U KETONE (test code = 3258) neg Negative - Negative POCT U UROBILI (test code = 3260) neg 0.2-1 POCT U BILI (test code = 3261) neg Negative - Negative POCT U BLD (test code = 3257) 250 Negative - Negati ve POCT U COLOR (test code = 3266) dark yellow POCT U APPEAR (test code = 3267) cloudy Lab Interpretation (test cod e = 30419-9) Abnormal [facility] URINALYSIS W SPECIFIC [id number] 15:19:00* Test Item Value Reference Range Interpretation Comme nts POCT U SP GRAV (test code = 3255) 1.025 mg/dl 1.005-1.025 POCT PH U (test code = 3254) 5 mg/dl 5-8 POCT U LEUK EST (test code = 3263) + Negative - Negative POCT U NIT (test code = 3262) neg Negative - Negati ve POCT U PROT (test code = 3259) neg Negative - Negative POCT U GLU (test code = 3256) neg Negative - Negati ve POCT U KETONE (test code = 3258) neg Negative - Negative POCT U UROBILI (test code = 3260) neg 0.2-1 POCT U BILI (test code = 3261) neg Negative - Negative POCT U BLD (test code = 3257) 250 Negative - Negati ve POCT U COLOR (test code = 3266) dark yellow POCT U APPEAR (test code = 3267) cloudy Lab Interpretation (test cod e = 18002-7) Abnormal [facility] [id number] 15:15:00* Test Item Value Reference Range Interpretation Comme nts POCT PREG (test code = 1605) Negative On board controls acceptable with C Line (test code = 3574) Yes POCT PREG LOT # (test code = 3575) POCT PREG TEST DATE ( test code = 3576) [facility] [id number] 15:15:00* Test Item Value Reference Range Interpretation Comme nts POCT PREG (test code = 1605) Negative On board controls acceptable with C Line (test code = 3574) Yes POCT PREG LOT # (test code = 3575) POCT PREG TEST DATE ( test code = 3576) [facility] [id number] 17:13:00* Test Item Value Reference Range Interpretation Comme nts POCT PREG (test code = 1605) Negative On board controls acceptable with C Line (test code = 3574) Yes POCT PREG LOT # (test code = 3575) POCT PREG TEST DATE ( test code = 3576) [facility] [id number] 17:13:00* Test Item Value Reference Range Interpretation Comme nts POCT PREG (test code = 1605) Negative On board controls acceptable with C Line (test code = 3574) Yes POCT PREG LOT # (test code = 3575) POCT PREG TEST DATE ( test code = 3576) [facility] [id number] 16:23:00* Test Item Value Reference Range Interpretation Comme nts POCT PREG (test code = 1605) Negative On board controls acceptable with C Line (test code = 3574) Yes POCT PREG LOT # (test code = 3575) POCT PREG TEST DATE ( test code = 3576) [facility] [id number] 16:23:00* Test Item Value Reference Range Interpretation Comme nts POCT PREG (test code = 1605) Negative On board controls acceptable with C Line (test code = 3574) Yes POCT PREG LOT # (test code = 3575) POCT PREG TEST DATE ( test code = 3576) [facility] [id number] 04:37:06 * Test Item Value Reference Range Interpretation Comme nts TSH (test code = 8154304713) See_Comment [Automated messa ge] The system which generated this result transmitted reference range: 0.45 - 4.70 mIU/L. The reference range was not used to interpret this result as normal/abnormal. Lab Interpretation (test code = 74974-2) Normal [facility] HospitalTH[facility] STIMULATING [id number] 04:37:06 * Test Item Value Reference Range Interpretation Comme nts TSH (test code = 4054724123) See_Comment [Automated messa ge] The system which generated this result transmitted reference range: 0.45 - 4.70 mIU/L. The reference range was not used to interpret this result as normal/abnormal. Lab Interpretation (test code = 56121-5) Normal [facility] HospitalLIPID PANEL ([id number])(TOTAL CHOLESTEROL, TRIGLYCERIDES, HDL)2021-12-25 04:08:43* Test Item Value Reference Range Interpretation Comme nts CHOL (test code = 8541176371) 123 mg/dL 120-200 HDL (test code = 5482500682) 51 mg/dL See_Comment [Automated messa ge] The system which generated this result transmitted reference range: >=50. The reference range was not used to interpret this result as normal/abnormal. HDLC RATIO (test code = 8345160377) See_Comment [Automated messa ge] The system which generated this result transmitted reference range: <=4.5. The reference range was not used to interpret this result as normal/abnormal. TRIG (test code = 6496720448) 34 mg/dL 30-170 LDL CHOL (test code = 66796-6) 65 mg/dL See_Comment [Automated messa ge] The system which generated this result transmitted reference range: <=160. The reference range was not used to interpret this result as normal/abnormal. VLDL (test code = 4635970968) 7 mg/dL 5-60 Lab Interpretation (test code = 31517-6) Normal [facility] HospitalLIPID PANEL (13142)(TOTAL CHOLESTEROL, TRIGLYCERIDES, HDL)2021-12-25 04:08:43* Test Item Value Reference Range Interpretation Comme nts CHOL (test code = 4522497763) 123 mg/dL 120-200 HDL (test code = 9897665559) 51 mg/dL See_Comment [Automated messa ge] The system which generated this result transmitted reference range: >=50. The reference range was not used to interpret this result as normal/abnormal. HDLC RATIO (test code = 3251763384) See_Comment [Automated messa ge] The system which generated this result transmitted reference range: <=4.5. The reference range was not used to interpret this result as normal/abnormal. TRIG (test code = 6500219532) 34 mg/dL 30-170 LDL CHOL (test code = 77790-1) 65 mg/dL See_Comment [Automated Enomalya Dropmysite] The system which generated this result transmitted reference range: <=160. The reference range was not used to interpret this result as normal/abnormal. VLDL (test code = 9821097683) 7 mg/dL 5-60 Lab Interpretation (test code = 58312-5) Normal [facility]. METABOLIC PANEL (21123)2021-12-25 04:08:23* Test Item Value Reference Range Interpretation Comme nts NA (test code = 5455410664) 139 mmol/L 135-145 K (test code = 3764738468) 4.6 mmol/L 3.5-5 CL (test code = 1340041905) 105 mmol/L 98-108 CO2 TOTAL (test code = 6375375006) 26 mmol/L 23-31 AGAP (test code = 6892986299) 2-16 BUN (test code = 8170934672) 11 mg/dL 7-23 GLUCOSE (test code = 7251790058) 89 mg/dL 70-110 CREATININE (test code = 0409827806) 0.55 mg/dL 0.5-1.04 TOTAL BILI (test code = 6368369935) 0.3 mg/dL 0.1-1.1 CALCIUM (test code = 0136328690) 9.4 mg/dL 8.6-10.6 T PROTEIN (test code = 5373399021) 7.4 g/dL 6.3-8.2 ALBUMIN (test code = 0937313896) 4.8 g/dL 3.5-5 ALK PHOS (test code = 1164508830) 76 U/L 34-122 ALTv (test code = 1742-6) 17 U/L 5-35 AST(SGOT) (test code = 3688739054) 24 U/L 13-40 eGFR (test code = 6155617400) mL/min/1.73m2 APTRICK (test code = PATRICK) Association of Glomerular Filtration Rate (GFR) and Staging of Kidney Disease* + + +- +| GFR (mL/min/1.73 m2) ?| With Kidney Damage ?| ?Without Kidney Damage+ ------+ ----+ ------+| ?>90 ?| ?Stage one ?| ? Normal ?+ -+ + -+| ?60-89 ?| ?Stage two ?| ? Decreased GFR ? + + +- +| ?30-59 ?| ?Stage three ?| ? Stage three ? + + +- +| ?15-29 ?| ?Stage four ? | ? Stage four ?+ -+ + -+| ?<15 (or dialysis) ? ?| ?Stage five ? | ? Stage five ?+ -+ + -+ *Each stage assumes the associated GFR level has been in effect for at least three months. ?Stages 1 to 5, with or without kidney disease, indicate chronic kidney disease. Notes: Determination of stages one and two (with eGFR >59mL/min/1.73 m2) requires estimation of kidney damage for at least three months as defined by structural or functional abnormalities of the kidney, manifested by either:Pathological abnormalities or Markers of kidney damage (including abnormalities in the composition of the blood or urine or abnormalities in imaging tests). [facility]. METABOLIC PANEL ([id number])2021-12-25 04:08:23* Test Item Value Reference Range Interpretation Comme nts NA (test code = 0919387699) 139 mmol/L 135-145 K (test code = 9965377387) 4.6 mmol/L 3.5-5 CL (test code = 4793475755) 105 mmol/L 98-108 CO2 TOTAL (test code = 4792044375) 26 mmol/L 23-31 AGAP (test code = 7151717813) 2-16 BUN (test code = 2566548256) 11 mg/dL 7-23 GLUCOSE (test code = 2639930725) 89 mg/dL 70-110 CREATININE (test code = 1502062749) 0.55 mg/dL 0.5-1.04 TOTAL BILI (test code = 1787051349) 0.3 mg/dL 0.1-1.1 CALCIUM (test code = 4735346293) 9.4 mg/dL 8.6-10.6 T PROTEIN (test code = 2719784615) 7.4 g/dL 6.3-8.2 ALBUMIN (test code = 4208892990) 4.8 g/dL 3.5-5 ALK PHOS (test code = 9707975865) 76 U/L 34-122 ALTv (test code = 1742-6) 17 U/L 5-35 AST(SGOT) (test code = 0797711034) 24 U/L 13-40 eGFR (test code = 5636815143) mL/min/1.73m2 PATRICK (test code = PATRICK) Association of Glomerular Filtration Rate (GFR) and Staging of Kidney Disease* + + +- +| GFR (mL/min/1.73 m2) ?| With Kidney Damage ?| ?Without Kidney Damage+ ------+ ----+ ------+| ?>90 ?| ?Stage one ?| ? Normal ?+ -+ + -+| ?60-89 ?| ?Stage two ?| ? Decreased GFR ? + + +- +| ?30-59 ?| ?Stage three ?| ? Stage three ? + + +- +| ?15-29 ?| ?Stage four ? | ? Stage four ?+ -+ + -+| ?<15 (or dialysis) ? ?| ?Stage five ? | ? Stage five ?+ -+ + -+ *Each stage assumes the associated GFR level has been in effect for at least three months. ?Stages 1 to 5, with or without kidney disease, indicate chronic kidney disease. Notes: Determination of stages one and two (with eGFR >59mL/min/1.73 m2) requires estimation of kidney damage for at least three months as defined by structural or functional abnormalities of the kidney, manifested by either:Pathological abnormalities or Markers of kidney damage (including abnormalities in the composition of the blood or urine or abnormalities in imaging tests). [facility] WITH [id number] 04:08:03* Test Item Value Reference Range Interpretation Comme nts WBC (test code = 6690-2) See_Comment [Automated Red Seraphim] The system which generated this result transmitted reference range: 4.30 - 11.10 10*3/?L. The reference range was not used to interpret this result as normal/abnormal. RBC (test code = 789-8) See_Comment [Automated Enomalya Dropmysite] The system which generated this result transmitted reference range: 3.93 - 5.25 10*6/?L. The reference range was not used to interpret this result as normal/abnormal. HGB (test code = 718-7) 12.7 g/dL 11.6-15 HCT (test code = 4544-3) 39.7 % 35.7-45.2 MCV (test code = 787-2) 89.6 fL 80.6-95.5 MCH (test code = 785-6) 28.7 pg 25.9-32.8 MCHC (test code = 786-4) 32.0 g/dL 31.6-35.1 RDW-SD (test code = 25700-5) 42.7 fL 39-49.9 RDW-CV (test code = 788-0) 13.0 % 12-15.5 PLT (test code = 777-3) See_Comment [Automile] The system which generated this result transmitted reference range: 166 - 358 10*3/?L. The reference range was not used to interpret this result as normal/abnormal. MPV (test code = 84829-5) 11.3 fL 9.5-12.9 NRBC/100 WBC (test code = 2987605834) See_Comment [Automated Aptoge] The system which generated this result transmitted reference range: 0.0 - 10.0 /100 WBCs. The reference range was not used to interpret this result as normal/abnormal. NRBC x10^3 (test code = 7906417696) See_Comment [Automated Aptoge] The system which generated this result transmitted reference range: 10*3/?L. The reference range was not used to interpret this result as normal/abnormal. GRAN MAT (NEUT) % (test code = 770-8) 61.7 % IMM GRAN % (test code = 9393085986) 0.30 % LYMPH % (test code = 736-9) 28.0 % MONO % (test code = 5905-5) 9.0 % EOS % (test code = 713-8) 0.5 % BASO % (test code = 706-2) 0.5 % GRAN MAT x10^3(ANC) (test code = 5865403573) 4.59 10*3/uL 1.88-7.09 IMM GRAN x10^3 (test code = 7463962258) 0-0.06 LYMPH x10^3 (test code = 731-0) 2.08 10*3/uL 1.32-3.29 MONO x10^3 (test code = 742-7) 0.67 10*3/uL 0.33-0.92 EOS x10^3 (test code = 711-2) 0.04 10*3/uL 0.03-0.39 BASO x10^3 (test code = 704-7) 0.04 10*3/uL 0.01-0.07 [facility] WITH [id number] 04:08:03* Test Item Value Reference Range Interpretation Comme nts WBC (test code = 6690-2) See_Comment [Automated messa ge] The system which generated this result transmitted reference range: 4.30 - 11.10 10*3/?L. The reference range was not used to interpret this result as normal/abnormal. RBC (test code = 789-8) See_Comment [Automated Enomalya ge] The system which generated this result transmitted reference range: 3.93 - 5.25 10*6/?L. The reference range was not used to interpret this result as normal/abnormal. HGB (test code = 718-7) 12.7 g/dL 11.6-15 HCT (test code = 4544-3) 39.7 % 35.7-45.2 MCV (test code = 787-2) 89.6 fL 80.6-95.5 MCH (test code = 785-6) 28.7 pg 25.9-32.8 MCHC (test code = 786-4) 32.0 g/dL 31.6-35.1 RDW-SD (test code = 51382-4) 42.7 fL 39-49.9 RDW-CV (test code = 788-0) 13.0 % 12-15.5 PLT (test code = 777-3) See_Comment [Automated Enomalya ge] The system which generated this result transmitted reference range: 166 - 358 10*3/?L. The reference range was not used to interpret this result as normal/abnormal. MPV (test code = 80382-0) 11.3 fL 9.5-12.9 NRBC/100 WBC (test code = 3016987197) See_Comment [Automated me ssage] The system which generated this result transmitted reference range: 0.0 - 10.0 /100 WBCs. The reference range was not used to interpret this result as normal/abnormal. NRBC x10^3 (test code = 2239816721) See_Comment [Automated me ssage] The system which generated this result transmitted reference range: 10*3/?L. The reference range was not used to interpret this result as normal/abnormal. GRAN MAT (NEUT) % (test code = 770-8) 61.7 % IMM GRAN % (test code = 2390597391) 0.30 % LYMPH % (test code = 736-9) 28.0 % MONO % (test code = 5905-5) 9.0 % EOS % (test code = 713-8) 0.5 % BASO % (test code = 706-2) 0.5 % GRAN MAT x10^3(ANC) (test code = 2661498501) 4.59 10*3/uL 1.88-7.09 IMM GRAN x10^3 (test code = 8913268020) 0-0.06 LYMPH x10^3 (test code = 731-0) 2.08 10*3/uL 1.32-3.29 MONO x10^3 (test code = 742-7) 0.67 10*3/uL 0.33-0.92 EOS x10^3 (test code = 711-2) 0.04 10*3/uL 0.03-0.39 BASO x10^3 (test code = 704-7) 0.04 10*3/uL 0.01-0.07 [facility] [id number] 18:23:00* Test Item Value Reference Range Interpretation Comme nts POCT PREG (test code = 1605) Negative On board controls acceptable with C Line (test code = 3574) Yes POCT PREG LOT # (test code = 3575) [id number] POCT PREG TEST DATE ( test code = 3576) 06/29/22 [facility] [id number] 18:23:00* Test Item Value Reference Range Interpretation Comme nts POCT PREG (test code = 1605) Negative On board controls acceptable with C Line (test code = 3574) Yes POCT PREG LOT # (test code = 3575) [id number] POCT PREG TEST DATE ( test code = 3576) 06/29/22 [facility] [id number] 19:18:04* Test Item Value Reference Range Interpretation Comme nts Nil (test code = 56574-5) IU/mL TB1 minus Nil (test code = 77230-5) IU/mL TB2 minus Nil (test code = 2268409338) IU/mL Mitogen minus Nil (test code = 87402-3) IU/mL QFT Gold Plus Result (test code = 85685-7) Negative Negative PATRICK (test code = PATRICK) The QuantiFERON? TB Gold Plus (in Tube) assay is intended for use as an aid in diagnosis of TB infection. A qualitative result (i.e., Negative, Positive, or Indeterminate) is based on interpretation of the four values, Nil, TB1 minus Nil, TB2 minus Nil, and Mitogen minus Nil. ?The Nil value represents nonspecific reactivity produced by the patient specimen. ?The TB1 minus Nil value indicates the interferon-gamma response of CD4+ T lymphocytes, specifically stimulated by the TB1 antigens. ?The TB2 minus Nil value indicates interferon-gamma response of both CD4+ and CD8+ T lymphocytes, stimulated by TB2 antigens. ?The Mitogen minus Nil value serves as the positive control, demonstrating the successful responsiveness of the T lymphocytes in patient specimen. A negative result suggests that M. tuberculosis infection is unlikely. ?However, in patients with high suspicion of exposure, a negative test should be repeated on a new sample. A positive result indicates an interferon-gamma response to M. tuberculosis antigens, suggesting infection with M. tuberculosis. Positive results in patients at low-risk for tuberculosis should be interpreted with caution and repeat testing on a new sample is advised. ?If repeat testing is positive, treatment may be indicated. ?Consult Infectious Disease Services for further recommendations. False positive results may occur in patients with prior infection with M. marinum, M. szulgai, or M. kansasii. For an indeterminate result, the likelihood of determining infection with M. tuberculosis cannot be determined. ?If clinically indicated, repeat testing on a new sample is advised. For further information, refer to http://www.cdc.gov/mmwr/pd f/rr/ea4159.pdf and https://doi.org/10.1093/ci d/nyi631. [facility] [id number] 19:18:04* Test Item Value Reference Range Interpretation Comme nts Nil (test code = 69858-7) IU/mL TB1 minus Nil (test code = 56661-3) IU/mL TB2 minus Nil (test code = 7662223383) IU/mL Mitogen minus Nil (test code = 22406-1) IU/mL QFT Gold Plus Result (test code = 59580-7) Negative Negative PATRICK (test code = PATRICK) The QuantiFERON? TB Gold Plus (in Tube) assay is intended for use as an aid in diagnosis of TB infection. A qualitative result (i.e., Negative, Positive, or Indeterminate) is based on interpretation of the four values, Nil, TB1 minus Nil, TB2 minus Nil, and Mitogen minus Nil. ?The Nil value represents nonspecific reactivity produced by the patient specimen. ?The TB1 minus Nil value indicates the interferon-gamma response of CD4+ T lymphocytes, specifically stimulated by the TB1 antigens. ?The TB2 minus Nil value indicates interferon-gamma response of both CD4+ and CD8+ T lymphocytes, stimulated by TB2 antigens. ?The Mitogen minus Nil value serves as the positive control, demonstrating the successful responsiveness of the T lymphocytes in patient specimen. A negative result suggests that M. tuberculosis infection is unlikely. ?However, in patients with high suspicion of exposure, a negative test should be repeated on a new sample. A positive result indicates an interferon-gamma response to M. tuberculosis antigens, suggesting infection with M. tuberculosis. Positive results in patients at low-risk for tuberculosis should be interpreted with caution and repeat testing on a new sample is advised. ?If repeat testing is positive, treatment may be indicated. ?Consult Infectious Disease Services for further recommendations. False positive results may occur in patients with prior infection with M. marinum, M. szulgai, or M. kansasii. For an indeterminate result, the likelihood of determining infection with M. tuberculosis cannot be determined. ?If clinically indicated, repeat testing on a new sample is advised. For further information, refer to http://www.cdc.gov/mmwr/pd f/rr/pz8702.pdf and https://doi.org/10.1093/ci d/psz847. [facility] History and Physical Notes Date/Time Note Provider Source 2022-11-23 14:30:00 Formatting of this n ote is different from the original. Images from the original note were not included. recruiting consultant Clinic Note Chief Complaint: Orthognathic surgery evaluation HPI July Simental is a 22 year old female with pmh as documented below presenting to [facility] recruiting consultant clinic for evaluation of the jaw asymmetry. Patient reports pain to the left ear that they currently see [facility] ENT for and is currently planned for a Tympanoplasty with Dr. Skelton in April 2023. The patient reports that their ENT believes that their gross malocclusion could be contributing to their ear pain. Reports being in braces for a period of around 1-2 years when they were 12 years old. Since that time their occlusion has changed and their mandible has now protruded and deviated to the left. Currently denies any intraoral/extraoral swelling, odynophagia, dysphagia, dyspnea or chest pain. Histories Past Medical History: Diagnosis Date Anemia Asthma Chronic ear infection Heart murmur Hemorrhagic ovarian cyst 11/11/2022 Neurofibromatosis Seizures Past Surgical History: Procedure Laterality Date ADENOIDECTOMY COLONOSCOPY 2018 COLONOSCOPY N/A 04/16/2022 Surgeon: Emily Lopez MD; Location: [facility] EGD (ENDO) 2018 ESOPHAGOGASTRODUODENOSCOPY N/A 04/16/2022 Surgeon: Emily Lopez MD; Location: [facility] HAND/FINGER SURGERY UNLISTED 17 sugeries for neurofibromatosis MYRINGOTOMY X 4 times REMOVAL OF OVARIAN CYST(S) TONSILLECTOMY Family History Problem Relation Age of Onset defects Other Asthma Maternal Aunt Asthma Maternal Uncle Diabetes Paternal Aunt Depression Paternal Uncle Mental retardation Paternal Uncle Neurological Paternal Uncle Psychiatry Paternal Uncle Arthritis Maternal Grandmother Heart Maternal Grandmother High cholesterol Maternal Grandmother Hypertension Maternal Grandmother Arthritis Paternal Grandmother Heart Paternal Grandmother High cholesterol Paternal Grandmother Hypertension Paternal Grandmother No Significant Medical Problems Mother No Significant Medical Problems Father Breast Cancer NoFHx Colon Cancer NoFHx Ovarian Cancer NoFHx Uterine Cancer NoFHx Cancer NoFHx Genetic NoFHx Osteoporosis NoFHx Social History Socioeconomic History Marital status: Single Occupational History Occupation: student Comment: 11th grade 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 Review of Systems Constitutional: negative Skin: negative Eyes: negative Ears, nose, mouth, throat: (+) per HPI Cardio: negative Resp: negative GI: negative : negative CHRISTINE: negative Neuro: negative Psych: negative Endo: negative Hem/Lymphatic: negative Allergic/Immunologic: (+) cantaloupe, tree nuts Physical Exam BP 135/90 (BP Location: Right arm, Patient Position: Sitting, BP CUFF SIZE: Adult Medium) | Pulse 91 | Temp 36.2 ?C (97.2 ?F) (Tympanic) | Ht 1.651 m (5' 5") | Wt 82.6 kg (182 lb) | BMI 30.29 kg/m? General Appearance: NAD, appears stated age Skin: No rashes, pain, abscess, masses Head/Neck: No lymphadenopathy, trachea midline, no thyromegaly Dolichocephaly with concave facial profile. Facial asymmetry with the chin is off the midsagittal plane. Cheeks are flattened with moderate midface hypoplasia. Sttep mandibular plane angle TMJ: No clicking or popping on opening, No deviation on opening, Maximum incisal opening: mm Eyes: PERRLA, EOM intact, conjunctiva clear, no ptosis Ears: No hearing loss, pain, tinnitus, vertigo Nose: No discharge, epistaxis, rhinorrhea Throat: Normal mucosa, uvula midline and mobile, normal gag reflex Lip: No swelling, no ulcerations, normal mucosa Oral Mucosa: No white lesions, no red lesions, no swelling, no ulcerations Occlusion: Class 3 malocclusion,reveres overjet 6 mm maxillary midline on, mandibular midline shifted ~5mm, left posterior crossbite and anterior open bite. Maxilla is narrowed (+) malposed #1, 2, 16 (+) PBI #17, 32 Tongue/FOM: No swellings, ulcerations, non-tender to palpation, gag reflex present Neurological: Alert and oriented x3, CN II-XII grossly intact Radiology CBCT was taken on 11/26/2022 at [facility] clinic I independently reviewed and interpreted the imaging, and my findings are: Maxillary hypoplasia and transverse deficiency Malposed #1, 2, 16 PBI tooth #17, 32 Condyles seated in fossa bilaterally Condylar heads are symmetrical Maxillary Sinuses are clear No bony pathology identified Assessment/Diagnosis July Simental is a 22 year old female with 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 She denies any pain associated with their bilateral TMJ, ron's test was negative, and joints are smooth without any clicking or popping. Explained to the patient that although they currently do not have any temporomandibular disorder, that they are at high risk of developing TMD later in life if they do not pursue corrective jaw surgery. Explained to patient that they would need to undergo orthodontic therapy to level and align the dentition prior to surgery. Patient expressed that surgery would be a last resort for them at this time and they are currently uninterested in orthognathic surgery, but would still like have their wisdom teeth removed. Plan - Referral to Dr. Brown for wisdom tooth extraction - Patient to establish care with a dentist to determine a treatment plan for tooth #2 and whether to extract at the same time as #1 or not - Patient reports that they will contact Dr. Grijalva should they choose to pursue orthognathic surgery I personally examined the patient on 11/23/[address] Watt' resident note as written . I actively participated in the decision-making process. Please see the resident's note for additional details. [facility] - Health Notes Date/Time Note Provider Source 2024-11-15 09:06:00 [facility] ([facility]) OB Postpart Progr Note REPORT#:[id number] REPORT STATUS: Signed REPORT INITIALIZATION DATE:11/15/24 TIME: 905 PATIENT: JULY SIMENTAL UNIT #: [id number] ROOM/BED: 4674-A : 99 AGE: 24 SEX: F ATTEND: Valerie Reddy MD ADM AUTHOR: Valerie Reddy MD REPT SERVICE DT/TIME: 11/15/24905 * ALL edits or amendments must be made on the electronic/computer document * Subjective Subjective Admission EGA: Weeks: 38 Days: 4 Status/Day: post (d3) Patient reports: Patient reports: Yes no complaints, Yes pain management effective, Yes tolerating po well Objective Nursing Documentation Review Nursing Data: The data set between the solid lines has been imported from nursing documentation. Any exceptions have been noted below under Provider comments. Feeding preference: Post hemorrhage risk score: LowRisk Calculated suicide risk level: Provider comments on imported nursing data: [] General VS: Vital Signs: Date Time Temp Pulse Resp B/P B/P Pulse O2 O2 Flow FiO2 Mean Ox Delivery Rate 11/15 0720 98.3 120 18 143/83 99 11/15 0022 98.2 114 18 142/74 96.5 99 11/14 2245 98.9 114 18 137/78 100 11/14 1600 118 155/99 11/14 1300 98.4 123 18 143/92 99 PATIENT WEIGHT: Weight (lb): Weight (oz): Weight (kg): 95.065923 Physical Exam Neuro: Exam: alert, oriented x3 Abdomen: soft, no abnormal tenderness Uterus: firm, non-tender Lacerations: Perineal laceration(s): 1st Degree w/periurethral, 2nd Degree w/vag muscles High vaginal laceration: no Diagnosis, Assessment Plan Diagnosis, Assessment Plan Assessment: nml progress Plan: routine care, discharge today at 0907 RPT #:[id number] END OF REPORT [facility] 2024-11-14 08:09:00 [facility] ([facility]) OB Postpart Progr Note REPORT#:[id number] REPORT STATUS: Signed REPORT INITIALIZATION DATE:11/14/24 TIME: 808 PATIENT: JULY SIMENTAL UNIT #: [id number] ROOM/BED: [address] : 99 AGE: 24 SEX: F ATTEND: Valerie Reddy MD ADM AUTHOR: Valerie Reddy MD REPT SERVICE DT/TIME: 11/14/24 0809 * ALL edits or amendments must be made on the electronic/computer document * Subjective Subjective Admission EGA: Weeks: 38 Days: 4 Status/Day: post (d2) Patient reports: Patient reports: Yes no complaints, Yes pain management effective, Yes tolerating po well Objective Nursing Documentation Review Nursing Data: The data set between the solid lines has been imported from nursing documentation. Any exceptions have been noted below under Provider comments. Feeding preference: Post hemorrhage risk score: LowRisk Calculated suicide risk level: Provider comments on imported nursing data: [] General VS: Vital Signs: Date Time Temp Pulse Resp B/P B/P Pulse O2 O2 Flow FiO2 Mean Ox Delivery Rate 11/14 0026 97.7 103 18 135/82 99.8 100 11/13 1610 107.0 11/13 1610 97.7 114 18 140/90 100 11/13 1223 99.0 11/13 1223 98.1 108 18 136/81 99 11/13 0821 102.0 11/13 0821 98.3 98 18 133/87 99 PATIENT WEIGHT: Weight (lb): Weight (oz): Weight (kg): 95.872865 Physical Exam Neuro: Exam: alert, oriented x3 Abdomen: soft, no abnormal tenderness Uterus: firm, non-tender Lacerations: Perineal laceration(s): 1st Degree w/periurethral, 2nd Degree w/vag muscles High vaginal laceration: no Result Findings/Data: Laboratory Tests: 11/13 1613 Urines Urine Color (YELLOW) STRAW Urine Appearance (CLEAR) CLEAR Urine pH (5 - 9) 6.0 Ur Specific [place] (1.001 - 1.035) 1.003 Urine Protein (NEG) NEGATIVE Urine Glucose (UA) (NEG) NEGATIVE Urine Ketones (NEG) NEGATIVE Urine Blood (NEG) 3+ H Urine Nitrite (NEG) NEG Urine Bilirubin (NEG) NEGATIVE Urine Urobilinogen (NEG mg/dL) NEGATIVE Ur Leukocyte Esterase (NEG) 1+ H Urine RBC (NONE SEEN #/hpf) TOO NUMEROUS TO CNT H Urine WBC (NONE SEEN #/hpf) 6-10 H Ur Epithelial Cells (RARE - FEW #/HPF) RARE Urine Bacteria (RARE - FEW /HPF) RARE Diagnosis, Assessment Plan Diagnosis, Assessment Plan Assessment: nml progress Plan: routine care, discharge today at 0809 RPT #:[id number] END OF REPORT [facility] 2024-11-13 12:02:00 [facility] ([facility]) OB Postpart Progr Note REPORT#:[id number] REPORT STATUS: Signed REPORT INITIALIZATION DATE:11/13/24 TIME: 1202 PATIENT: JULY SIMENTAL UNIT #: [id number] ROOM/BED: [address] : 99 AGE: 24 SEX: F ATTEND: Valerie Reddy MD ADM AUTHOR: Valerie Reddy MD REPT SERVICE DT/TIME: 11/13/24 1202 * ALL edits or amendments must be made on the electronic/computer document * Subjective Subjective Admission EGA: Weeks: 38 Days: 4 Status/Day: post (d1) Patient reports: Patient reports: Yes no complaints, Yes pain management effective, Yes tolerating po well Objective Nursing Documentation Review Nursing Data: The data set between the solid lines has been imported from nursing documentation. Any exceptions have been noted below under Provider comments. Feeding preference: Post hemorrhage risk score: LowRisk Calculated suicide risk level: Provider comments on imported nursing data: [] General VS: Vital Signs: Date Time Temp Pulse Resp B/P B/P Pulse O2 O2 Flow FiO2 Mean Ox Delivery Rate 11/13 0821 102.0 11/13 0821 98.3 98 18 133/87 99 07/15 0530 100 138/93 07/15 0330 99.0 109 20 135/90 98 07/15 0230 115.0 07/15 0230 120 161/86 07/15 0215 108.0 07/15 0215 131 144/89 0715 0200 110.0 07/15 0200 106 147/88 15 0145 113.0 07/15 0145 111 154/87 /15 0130 101.0 07/15 0130 127 140/82 11/13 0115 104.0 07/15 0115 133 141/81 /15 0100 101.0 07/15 0100 131 131/82 /15 0045 111.0 07/15 0045 120 146/87 07/15 0030 106.0 07/15 0030 130 142/83 07/15 0015 112.0 07/15 0015 127 148/90 07/15 0000 113.0 07/15 0000 121 151/87 07/14 2345 108.0 07/14 2345 115 149/90 07/14 2330 111.0 07/14 2330 125 156/77 07/14 2328 99.0 07/14 2316 111.0 07/14 2316 121 152/87 07/14 2300 108.0 07/14 2300 111 139/89 07/14 2245 109.0 07/14 2245 116 139/89 07/14 2231 114.0 07/14 2231 115 144/94 07/14 2230 98.0 07/14 2215 124.0 07/14 2215 113 162/100 07/14 2201 122.0 07/14 2201 115 157/99 07/14 2145 120.0 07/14 2145 104 161/96 07/14 2130 122.0 07/14 2130 104 158/98 07/14 2127 118.0 07/14 2127 102 150/97 07/14 2113 90.0 07/14 2113 90 125/66 07/14 1958 108.0 07/14 1958 102 144/85 07/14 1944 107.0 07/14 1944 100 141/85 07/14 1927 107.0 07/14 1927 99 137/89 07/14 1912 104.0 07/14 1912 103 134/85 07/14 1859 101.0 07/14 1859 94 127/84 07/14 1843 101.0 07/14 1843 88 133/79 07/14 1828 106.0 07/14 1828 96 134/85 07/14 1812 105.0 07/14 1812 93 135/85 07/14 1756 106.0 07/14 1756 96 136/85 07/14 1754 118.0 07/14 1754 104 162/88 07/14 1744 120.0 07/14 1744 106 167/92 07/14 1741 120.0 07/14 1741 120 163/89 07/14 1738 124.0 07/14 1738 101 160/100 07/14 1735 122.0 07/14 1735 111 159/98 07/14 1732 123.0 07/14 1732 97.9 112 158/101 07/14 1729 120.0 07/14 1729 111 160/94 07/14 1726 120.0 07/14 1726 105 161/96 07/14 1611 98.2 PATIENT WEIGHT: Weight (lb): Weight (oz): Weight (kg): 95.358115 Physical Exam Neuro: Exam: alert, oriented x3 Abdomen: soft, no abnormal tenderness Uterus: firm, non-tender Lacerations: Perineal laceration(s): 1st Degree w/periurethral, 2nd Degree w/vag muscles High vaginal laceration: no Diagnosis, Assessment Plan Diagnosis, Assessment Plan Assessment: nml progress Plan: routine care, discharge tomorrow at 1202 RPT #:[id number] END OF REPORT [facility] 2024-11-12 23:41:00 [facility] ([facility]) OB Delivery Note REPORT#:[id number] REPORT STATUS: Signed REPORT INITIALIZATION DATE:11/12/24 TIME: 2341 PATIENT: JULY SIMENTAL UNIT #: [id number] ROOM/BED: [address] : 99 AGE: 24 SEX: F ATTEND: Valerie Reddy MD ADM AUTHOR: Valerie Reddy MD REPT SERVICE DT/TIME: 11/12/242340 * ALL edits or amendments must be made on the electronic/computer document * OB Delivery Pre-delivery [place] evaluation at delivery: NRP certified personnel Admission EGA: Weeks: 38 Days: 4 Admission indication: PIH Blood Loss/Details Blood loss at delivery: <1K: no sx hypovol=no hem, no more than expected EBL at delivery (ml's): 300 Baby A Information Baby A information Delivery date: 11/12/24 Delivery time: 2320 status: live born Wt of baby: not yet available Gender: female 1 minute: 8 5 minutes: 9 Presentation: vertex Nuchal cord Baby A Nuchal cord: no Vaginal Delivery Vaginal Delivery Vaginal delivery: Labor: induced Medications/Devices used: oxytocin, cytotec Vaginal delivery: spontaneous Amniotic fluid: clear Anesthesia type: epidural anesthesia Episiotomy: none Episiotomy repair: not applicable Laceration repair: 2-0 suture Vaginal hematoma: repaired/drained Placenta: spontaneous, intact Post delivery meds used: oxytocin Count: correct, vag exam neg for sponges Vaginal packing: No Mother's condition: mother stable 's condition: infant stable in room Lacerations: Perineal laceration(s): 1st Degree w/periurethral, 2nd Degree w/vag muscles High vaginal laceration: no at 2342 RPT #:[id number] END OF REPORT [facility] 2024-11-12 07:33:00 [facility] ([facility]) Clinical Note REPORT#:[id number] REPORT STATUS: Signed REPORT INITIALIZATION DATE:11/12/24 TIME: 732 PATIENT: JULY SIMENTAL UNIT #: [id number] ROOM/BED: [address] : 99 AGE: 24 SEX: F ATTEND: Valerie Reddy MD ADM AUTHOR: Valerie Reddy MD REPT SERVICE DT/TIME: 11/12/24 0733 * ALL edits or amendments must be made on the electronic/computer document * Clinical Note Note: s/p cytotec @ 0530. no c/o. FHT 135, Cat I. toco irreg. BP wnl. labs reviewed. cont cytotec to pitocin induction. antic . at 0735 RPT #:[id number] END OF REPORT [facility] 2024-11-12 03:40:00 [facility] ([facility]) OB Admission / H P REPORT#:[id number] REPORT STATUS: Signed REPORT INITIALIZATION DATE:11/12/24 TIME: 339 PATIENT: JULY SIMENTAL UNIT #: [id number] ROOM/BED: : 99 AGE: 24 SEX: F ATTEND: Valerie Reddy MD ADM AUTHOR: Harshal Humphreys MD REPT SERVICE DT/TIME: 11/12/24 0340 * ALL edits or amendments must be made on the electronic/computer document * OB History Chief complaint: elevated blood pressure HPI: 24 yo G1 at 38w4d who presents from home with elevated BPs and headache. States headache has since resolved. Denies PIH sx. history: : 1 Current : Admission EGA (weeks) 38 Admission EGA (days) 4 Conditions of : kidney/bladder infection (h/o admit for sepsis), cervical incompetence- rescue cerclage placed by Dr. Luciano at 19 weeks, was on vaginal progesterone. s/p cerclage removal in office Labs: Blood type: O Rh: positive Rubella: immune Hepatitis B: negative HIV: negative STD: negative Syphilis: currently negative GBS: negative Genetic testing: NIPT/AFP low risk Past History Additional Medical History: Neurofibromatosis of hands Asthma Anxiety Additional Surgical History: Tonsillectomy Excision of neurofibroma Tonsillectomy Additional Family History Non contributory Alcohol Use Denies EtOH use Drug Use Denies recreational drugs Smoking status for patients 13 years old or older: Never Smoker Medications: Home Medications: PNV/FE FUM/FA ( 19) 1 TAB PO DAILY PROGESTERONE (ENDOMETRIN VAGINAL INSERT) 200 MG VAGINAL BEDTIME Allergies: Coded Allergies: cantaloupe (Mild, HIVES 09/21/24) No Known Drug Allergies (09/21/24) Objective General VS: Last Documented: Result Date Time B/P Mean 97.0 11/12 0257 B/P 134/73 11/12 0257 Pulse 100 11/12 0257 Pulse Ox 100 11/12 0242 Temp 36.8 11/12 0226 Resp 18 11/12 0226 Vital Signs Date Temp Pulse Resp B/P B/P Mean Pulse Ox FiO2 11/12 36.8 100-130 18 134-156/73-98 97.0-119.0 98-100 PATIENT WEIGHT: Weight (lb): Weight (oz): Weight (kg): 95.050972 Physical Exam HEENT: normocephalic w/o injury Lungs: unlabored breathing Abdomen: gravid, soft, no abnormal tenderness Genitourinary: no flank pain Uterine activity: Monitor: toco Frequency (description): irritability, irregular Cervical/ exam: Dilatation (cm): 2 Effacement (%): 60 Est wt (gms): 7 (lb) station: - 3 Membranes: Membranes: Intact Baby A: Baby A baseline: 130 bpm Baby A variability: moderate 6-25 bpm Baby A accelerations: 15 X 15 Baby A decelerations: none Results Findings/Data: Laboratory Tests: 11/12 11/12 0247 0228 Chemistry Sodium (136 - 145 mEq/L) 141 Potassium (3.4 - 4.5 mEq/L) 3.9 Chloride (98 - 107 mEq/L) 108 H Carbon Dioxide (20 - 31 mEq/L) 20 Anion Gap (10 - 20) 17 BUN (8 - 23 mg/dL) 8 Creatinine (0.55 - 1.02 mg/dL) 0.6 Glomerular Filtr Rate (>60 ml/min) 127.67 Glucose (74 - 106 mg/dL) 97 Uric Acid (3.1 - 7.8 mg/dL) 5.1 Calcium (8.3 - 10.6 mg/dL) 9.7 Total Bilirubin (0.3 - 1.2 mg/dL) 0.3 AST (< 34 units/L) 20 ALT (10 - 49 units/L) 9 L Total Alk Phosphatase (46 - 116 units/L) 167 H Lactate Dehydrogenase (120 - 246 units/L) 156 Total Protein (5.7 - 8.2 g/dL) 6.5 Albumin (3.2 - 4.8 g/dL) 4.0 Hematology WBC (6.5 - 12.3 K/mm3) 15.2 H RBC (3.51 - 4.69 M/mm3) 3.85 Hgb (10.1 - 13.8 g/dL) 9.6 L Hct (32.5 - 41.8 %) 31.0 L MCV (84.6 - 96.6 fL) 80.5 L MCH (27.3 - 33.9 pg) 24.9 L MCHC (32.0 - 34.2 gm/dL) 31.0 L RDW (12.2 - 16.3 %) 14.7 Plt Count (134 - 363 K/mm3) 367 H MPV (9.2 - 12.7 fL) 10.7 Neut % (Auto) (57.9 - 77.3 %) 74.8 Lymph % (Auto) (14.5 - 29.7 %) 17.6 [place] % (Auto) (3.6 - 10.2 %) 6.4 Eos % (Auto) (0.0 - 3.0 %) 0.2 Baso % (Auto) (0.1 - 0.9 %) 0.3 Neut # (Auto) (K/mm3) 11.4 Lymph # (Auto) (K/mm3) 2.7 [place] # (Auto) (K/mm3) 1.0 Eos # (Auto) (K/mm3) 0.03 Baso # (Auto) (K/mm3) 0.1 Urines Ur Random Creatinine (mg/dL) 23 U Random Total Protein (mg/dL) 7 Protein/Creatinin Ratio (<200 mg/gcrea) 304.3 H 11/12 0228 Urines Urine Color (YELLOW) YELLOW Urine Appearance (CLEAR) CLOUDY A Urine pH (5 - 9) 6.0 Ur Specific [place] (1.001 - 1.035) 1.005 Urine Protein (NEG) NEGATIVE Urine Glucose (UA) (NEG) NEGATIVE Urine Ketones (NEG) TRACE H Urine Blood (NEG) 1+ H Urine Nitrite (NEG) NEG Urine Bilirubin (NEG) NEGATIVE Urine Urobilinogen (NEG mg/dL) NEGATIVE Ur Leukocyte Esterase (NEG) 2+ H Urine RBC (NONE SEEN #/hpf) 6-10 H Urine WBC (NONE SEEN #/hpf) 6-10 H Ur Epithelial Cells (RARE - FEW #/HPF) TOO NUMEROUS TO CNT H Urine Bacteria (RARE - FEW /HPF) RARE Diagnosis, Assessment Plan Diagnosis, Assessment Plan Free Text A P: G1 at 38w4d who presents with elevated BPs. Elevated P/C ratio noted, c/w pre- eclampsia without severe features. - Admit to L D for IOL - Plan PO cytotec 50mcg q4 hrs, followed by pitocin once cervix ripened - GBS neg, FHTs cat I at 0358 RPT #:[id number] END OF REPORT [facility] 2024-11-12 02:35:00 [facility] ([facility]) EMERGENCY PROVIDER REPORT REPORT#:[id number] REPORT STATUS: Signed DATE:11/12/24 TIME: 0235 PATIENT: JULY SIMENTAL UNIT #: [id number] ROOM/BED: : 99 AGE: 24 SEX: F PCP PHYS: Valerie Reddy MD SERVICE AUTHOR: Giulia Curiel MD REP SRV REP SRV TM: 0235 * ALL edits or amendments must be made on the electronic/computer document * ZOLTAN History Chief complaint: elevated BP HPI: 24yo at 38w4d presents to [facility] c/o elevated BP at home. Denies any headache , vision changes or RUQ pain. Endorses (+) FM Past medical history: denies PMH Past surgical history: Cyst removal , Cerclage placement-removed at 36 wks Social history: no alcohol use, no tobacco use, no drug use Medications: Home Medications: Medication Dose/Rte/Freq Days Qty Entered Last Max Daily Dose Reviewed PNV/FE FUM/FA 1 TAB PO DAILY 04/23/24 ( 19) 1553 Strength: 29 MG IRON-1 MG TAB.CHEW PROGESTERONE 200 MG VAGINAL 60 07/04/24 (ENDOMETRIN VAGINAL BEDTIME 1240 INSERT) Strength: 100 MG SUPP.VAG Allergies Coded Allergies: cantaloupe (Mild, HIVES 09/21/24) No Known Drug Allergies (09/21/24) Objective General VS: Last Documented: Result Date Time B/P Mean 97.0 11/12 0257 B/P 134/73 11/12 0257 Pulse 100 11/12 0257 Pulse Ox 100 11/12 0242 Temp 98.2 11/12 0226 Resp 18 11/12 0226 Vital Signs Date Temp Pulse Resp B/P B/P Mean Pulse Ox FiO2 11/12 98.2 100-130 18 134-156/73-98 97.0-119.0 98-100 PATIENT WEIGHT: Weight (lb): Weight (oz): Weight (kg): 95.553126 Physical Exam HEENT: normocephalic w/o injury Cardiac: regular rate and rhythm Lungs: unlabored breathing Abdomen: gravid, soft, no abnormal tenderness Genitourinary: no flank pain Uterine activity: Monitor: toco Frequency (description): irritability, irregular Baby A: Baby A baseline: 130 bpm Baby A variability: moderate 6-25 bpm Baby A accelerations: 15 X 15 Baby A decelerations: none Results Findings/Data: Laboratory Tests: 11/12 11/12 0247 0228 Chemistry Sodium (136 - 145 mEq/L) 141 Potassium (3.4 - 4.5 mEq/L) 3.9 Chloride (98 - 107 mEq/L) 108 H Carbon Dioxide (20 - 31 mEq/L) 20 Anion Gap (10 - 20) 17 BUN (8 - 23 mg/dL) 8 Creatinine (0.55 - 1.02 mg/dL) 0.6 Glomerular Filtr Rate (>60 ml/min) 127.67 Glucose (74 - 106 mg/dL) 97 Uric Acid (3.1 - 7.8 mg/dL) 5.1 Calcium (8.3 - 10.6 mg/dL) 9.7 Total Bilirubin (0.3 - 1.2 mg/dL) 0.3 AST (< 34 units/L) 20 ALT (10 - 49 units/L) 9 L Total Alk Phosphatase (46 - 116 units/L) 167 H Lactate Dehydrogenase (120 - 246 units/L) 156 Total Protein (5.7 - 8.2 g/dL) 6.5 Albumin (3.2 - 4.8 g/dL) 4.0 Hematology WBC (6.5 - 12.3 K/mm3) 15.2 H RBC (3.51 - 4.69 M/mm3) 3.85 Hgb (10.1 - 13.8 g/dL) 9.6 L Hct (32.5 - 41.8 %) 31.0 L MCV (84.6 - 96.6 fL) 80.5 L MCH (27.3 - 33.9 pg) 24.9 L MCHC (32.0 - 34.2 gm/dL) 31.0 L RDW (12.2 - 16.3 %) 14.7 Plt Count (134 - 363 K/mm3) 367 H MPV (9.2 - 12.7 fL) 10.7 Neut % (Auto) (57.9 - 77.3 %) 74.8 Lymph % (Auto) (14.5 - 29.7 %) 17.6 [place] % (Auto) (3.6 - 10.2 %) 6.4 Eos % (Auto) (0.0 - 3.0 %) 0.2 Baso % (Auto) (0.1 - 0.9 %) 0.3 Neut # (Auto) (K/mm3) 11.4 Lymph # (Auto) (K/mm3) 2.7 [place] # (Auto) (K/mm3) 1.0 Eos # (Auto) (K/mm3) 0.03 Baso # (Auto) (K/mm3) 0.1 Urines Ur Random Creatinine (mg/dL) 23 U Random Total Protein (mg/dL) 7 Protein/Creatinin Ratio (<200 mg/gcrea) 304.3 H 11/12 0228 Urines Urine Color (YELLOW) YELLOW Urine Appearance (CLEAR) CLOUDY A Urine pH (5 - 9) 6.0 Ur Specific [place] (1.001 - 1.035) 1.005 Urine Protein (NEG) NEGATIVE Urine Glucose (UA) (NEG) NEGATIVE Urine Ketones (NEG) TRACE H Urine Blood (NEG) 1+ H Urine Nitrite (NEG) NEG Urine Bilirubin (NEG) NEGATIVE Urine Urobilinogen (NEG mg/dL) NEGATIVE Ur Leukocyte Esterase (NEG) 2+ H Urine RBC (NONE SEEN #/hpf) 6-10 H Urine WBC (NONE SEEN #/hpf) 6-10 H Ur Epithelial Cells (RARE - FEW #/HPF) TOO NUMEROUS TO CNT H Urine Bacteria (RARE - FEW /HPF) RARE Diagnosis, Assessment Plan Diagnosis, Assessment Plan Free Text A P: Patient presents with moderate range BP and elevated PCR. No neurologic symptoms. Findings discussed with on-call provider. Plan is to admit for IOL at 0330 RPT #:[id number] END OF REPORT [facility] 2024 02:31:00 [facility] ([facility]) EMERGENCY PROVIDER REPORT REPORT#:[id number] REPORT STATUS: Signed DATE:10/12/24 TIME: 023 PATIENT: JULY SIMENTAL UNIT #: [id number] ROOM/BED: : 99 AGE: 24 SEX: F PCP PHYS: No Primary or Family Physician SERVICE AUTHOR: Lg Treadwell MD REP SRV REP SRV TM: 0231 * ALL edits or amendments must be made on the electronic/computer document * [place]TAN History Chief complaint: nausea, chest pain, reflux HPI: 24-year-old G1 now 34 1/7 weeks with EDC of 11/22/24. She has had a complicated with multiple OB ED visits. She had cervical cerclage placed in the 2nd trimester for unclear reasons. She is also been on progesterone hormone vaginally. She gives a history of elevated heart rate as well as intermittent elevated blood pressure, not on medications at this time. She presents tonight with complaints of retro sternal chest pain which is burning in nature. She reports experiencing this pain frequency however usually it is relieved by Tums. That therapy was not successful tonight so she presented to the emergency room. She denies any diagnosis of preeclampsia, reports good baby activity and no significant contractions detected. She has no fluid leak or bleeding. history: : 1 Term: 0 : 0 Abortus: 0 Living children: 0 Complications (prev preg): none Current : EDC: 11/22/24 EGA (weeks/days): 34 1/7 weeks Steroids prior to delivery: no yet Conditions of : cervical incompetence Procedures: cerclage, ultrasound, genetic testing, non stress test, surgery Genetic testing: chromosomal disorder, cystic fibrosis, Down syndrome, neural tube defect, sickle cell disease, Neri-Sachs disease, thalassemia Past medical history: asthma, hypertension, UTI, Covid x 2 Past surgical history: tonsils/adenoids, laparoscopy for ovarian torsion, hospitlized in August for UTI-sepsis Social history: unemployed, no alcohol use, no tobacco use, no drug use Medications: Home Medications: Medication Dose/Rte/Freq Days Qty Entered Last Max Daily Dose Reviewed PNV/FE FUM/FA 1 TAB PO DAILY 04/23/24 10/11/24 ( 19) 4066 9518 Strength: 29 MG IRON-1 MG TAB.CHEW AMOXICILLIN (AMOXIL) 875 MG PO Q12HR 09/21/24 Strength: 875 MG TAB 1733 PROGESTERONE 200 MG VAGINAL 60 07/04/24 10/11/24 (ENDOMETRIN VAGINAL BEDTIME 9840 2488 INSERT) Strength: 100 MG SUPP.VAG Current Hospital Medications: Gastrointestinal Drugs Sig/Lai Start time Last Medication Dose Route Stop Time Status Admin Ondansetron Base 4 MG ONCE ONE 10/12 44 DC 10/12 (ZOFRAN ODT 4MG) PO 10/12 45 0051 Pantoprazole Sodium 40 MG ONCE ONE 10/12 44 DC 10/12 (PROTONIX) PO 10/12 45 0103 Sucralfate 1 GM ONCE ONE 10/125 DC 10/12 (CARAFATE 1 GM UDTAB) PO 10/12 0046 0102 Allergies Coded Allergies: cantaloupe (Mild, HIVES 09/21/24) No Known Drug Allergies (09/21/24) Objective General VS: Last Documented: Result Date Time Pulse Ox 99 10/12 0128 Pulse 120 10/12 0128 B/P Mean 106.0 10/12 0124 B/P 144/82 10/12 0124 Temp 98.7 10/11 2304 Resp 18 10/11 2304 Vital Signs Date Temp Pulse Resp B/P B/P Mean Pulse Ox FiO2 /-/13 98.7 102-135 18 135-155/78-99 106.0-117.0 98-100 PATIENT WEIGHT: Weight (lb): Weight (oz): Weight (kg): [phone] PASD Risk Factors Placenta Accreta Spectrum Disorder Risk Factors none Physical Exam HEENT: normocephalic w/o injury, no lesions of mouth, no lesions of throat Cardiac: tachycardia Lungs: unlabored breathing Breasts: deferred Neuro: Exam: alert, oriented x3, normal speech DTR's (lower extr): normal 1-2+ Abdomen: gravid, soft, no abnormal tenderness Uterine activity: Monitor: toco Frequency (description): none Resting tone: relaxed Tachysystole: No Notes: no significant uterine contraction activity noted Pelvic exam: Vulvar lesions: none Vagina: normal (vaginal exam deferred) Uterus size in weeks: 34 Exam: soft, non-tender, approp size for gest age Sterile speculum exam: no bleeding Cervical/ exam: Suspected macrosomia: No station: - 4 presentation: cephalic Membranes: Membranes: Intact Lower extremities: Edema: none Cheryl's sign: negative Calf tenderness: negative Additional comments: There is no epigastric tenderness or right upper quadrant tenderness Baby A: Baby A baseline: 150 bpm Baby A variability: moderate 6-25 bpm Baby A accelerations: 15 X 15 Baby A decelerations: none Baby A FHR category: category 1 Results Results: no new labs, labs reviewed, vital signs reviewed, vital signs stable Interpretation I independently reviewed the [ ] and my interpretation is [ ] Diagnosis, Assessment Plan Diagnosis, Assessment Plan Free Text A P: 24-year-old G1 now 34 1/7 weeks with complex history, cervical cerclage in place , presents with [place] sternal discomfort, reflux symptoms. The symptoms were not relieved with simple anti- acid Assessment/Impression: spont.active labor<39 wks (reflux esophagitis), reassuring status, membranes intact, nausea controlled, normal FHR pattern , reactive NST, no evidence of labor Plan: discharge home, carafate, zofran, pantoprazole (single dose) Consultation(s): Additional comments: recommend she start daily Nexium or Prilosec Plan discussed with: patient, spouse/partner, nurse at 0253 RPT #:[id number] END OF REPORT [facility] 2024-09-07 23:46:00 [facility] ([facility]) Clinical Note REPORT#:[id number] REPORT STATUS: Signed REPORT INITIALIZATION DATE:09/07/24 TIME: 2345 PATIENT: JULY SIMENTAL UNIT #: [id number] ROOM/BED: : 99 AGE: 23 SEX: F ATTEND: Valerie Reddy MD ADM AUTHOR: Janny Forrester MD REPT SERVICE DT/TIME: 09/07/242345 * ALL edits or amendments must be made on the electronic/computer document * Clinical Note Note: This is triage evaluation dictated on patient July Simental seen in OB ED on 09/07/2024 by Janny Forrester MD, triage hospitalist per request of Dr. Gann on-call for Dr. Reddy. Patient is a 23-year-old G1, P0 with last menstrual period in January 2024, an estimated date of confinement 11/22/2024. She presented at 29 and 1 sevenths weeks complaining of new onset nausea vomiting and diarrhea after eating fast foods twice in the day. She had chicken wings and fries, then later Cajun chicken pasta. She reported 1 episode of vomiting and 2 episodes of diarrhea she also felt lightheaded with vision changes during that time. She checked her pressures and reported systolics in the 150s range at home. She denies history of chronic hypertension, gestational hypertension, or preeclampsia. She denies vaginal bleeding, leakage of fluid, or contractions, and reports good movements. She denies headache, scotomata, or other symptoms of preeclampsia. She denies fever, chills, or constipation. She reports questionable dysuria on the eighth. She denies cough, sore throat, loss of taste and smell, or other symptoms of COVID. She was previously diagnosed with COVID on 2 occasions last in 2020. She has received 2 doses of Moderna vaccine. Her care began with Dr. Reddy at approximately 8 weeks gestation, her next appointment is scheduled for 09/22. She later reported she had been seen by Dr. Reddy earlier in the day before onset of symptoms. She had no problems at that time, but due to her recent hospital admission 2-1/2 weeks ago for urinary sepsis, Dr. Reddy sent UA and CBC in clinic. The is complicated by incompetent cervix status post cerclage placement at [address] Luciano. She has a follow-up appointment with Dr. Luciano on 09/14.. Past medical history asthma diagnosed in 2004 with last flare and medication use at least 2 years ago. Patient denies prior overnight hospital stays, intubations, or long-term steroid use. 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 For the past 2 years on a few occasions she has been noted to have elevated heart rates in the 110 120s. She has not been seen by director economic. Past surgical history laparoscopic surgery for right ovarian torsion in 2012, tonsils and ear tubes in 2016, EGD in 2022, and cerclage placement in 2024. Allergies no known drug allergies. Medications vitamins, and nightly progesterone vaginal suppositories. Obstetrical history patient is primiparous. [employer] history with cycles every 1 to 2 months, all Pap smears normal, no history of STDs. Social history patient denies tobacco or illicit drug use, and reports occasional prepregnancy alcohol use. She lives with her boyfriend, a 25-year- old male with hypertension. She is not currently working, she was placed on modified bedrest. Family history maternal grandmother with hypertension, mother with thyroid disease, otherwise noncontributory. 10 point review of systems negative except as stated above. On physical exam patient is a well-nourished, well-developed young female in no acute distress lying on triage stretcher in OB ED. Height 5 feet 5 inches, weight prior to the 196, and current weight 206. Initial blood pressure 142/91, followed by a few pressures in the low mild range. After resting quietly normal pressures with last 127/81. Pulse 115 which is within her normal range. Respirations 17, and temperature 99.0. Head and neck exam within normal limits, without lymphadenopathy or thyromegaly. Chest with unlabored breathing, slightly tachycardic rate with regular rhythm. Breast exam deferred. Abdomen soft, nontender, gravid. Pelvic exam deferred. Extremities are without edema. Neuroexam is nonfocal, patient is awake, alert, and oriented x 3. NST is category 1 for gestational age with baseline heart tones in the 150s, multiple 15 x 15 accelerations, no decelerations, and no contractions seen. Urinalysis with trace leukocytes, otherwise negative with 0-2 RBCs, 3-5 WBCs, and few epithelial cells. ASSESSMENT/PLAN: 23-year-old G1 at 29 and 1 sevenths weeks with 19-week cerclage placement for cervical incompetence. She presents complaining of nausea, vomiting, diarrhea, lightheadedness, and vision changes. The latter 2 symptoms have resolved. She feels her symptoms are due to GI bug after eating earlier at to fast food restaurants. She was given Zofran ODT and symptoms have resolved, she is now tolerating p.o. intake. She also reported elevated home blood pressures without history of chronic hypertension. Earlier pressures were minimally elevated, but the last few within normal limits. No evidence of gestational hypertension or preeclampsia. Patient is now discharged home in stable condition with reassuring status. She is to notify her OB of the triage visit. She is to observe a bland diet until her symptoms have completely resolved, it was suggested she limit eating at fast food restaurants. If diarrhea recurs she should use [id number] Imodium with each diarrhea stool -maximum of 14 mg in 24 hours. She is to monitor her blood pressures and heart rates as instructed. She is to follow-up as scheduled on or earlier for vaginal bleeding, leakage of fluid, decreased movements, contractions with increased force and frequency, recurrence of nausea/vomiting/diarrhea with intolerance of p.o. intake, elevated blood pressures or worsening tachycardia, right upper quadrant pain, headache not relieved with Tylenol, scotomata, dizziness or syncope, or other concerns. All instructions given verbally by and questions answered./dsd at 0341 RPT #:[id number] END OF REPORT [facility] 2024-09-02 09:34:09 This patient is no longer under my care, last seen by me was 2021. MANAGER [employer]ILY MIDLEVEL PROVIDER [facility] 2024-09-01 14:59:23 Form pending receipt. Will place in Providers inbox for review when available. Brisa Cevallos LVN [facility] 2024-08-31 13:57:38 July Simental is a 23 year old female Nataliya from [facility] is calling to request a callback to discuss the patient's care gaps. She states that it is also to have a "provider collaboration" with the patient's doctor. Nataliya states that she will be faxing a form that pertains to the patient's care gaps and that, if she isn't able to be reached, the form can be filled and re-faxed instead. Please advise. Yuri Xie [facility] 2024-08-21 17:51:00 [id number] [facility] [place] [address] PATIENT NAME: JULY SIMENTAL ADMIT DATE: 06/29/24 ACCOUNT NO: [id number] ROOM NO: [facility] AGE: 23 SEX: F ADMITTING PHYSICIAN: Valerie Reddy MD ATTENDING PHYSICIAN: Valerie Reddy MD ADMISSION DATE: 06/29/2024 16:55:00 DISCHARGE DATE: 07/04/2024 14:16:00 ADMISSION DIAGNOSES: 1. A 19-week . 2. Incompetent cervix. PROCEDURE PERFORMED: Rescue cerclage. Had a consultation with maternal medicine, Dr. Denny Luciano. DISPOSITION: The patient was discharged home in good condition. DISCHARGE MEDICATIONS: Include vitamin and progesterone. SUMMARY OF HOSPITAL COURSE: The patient presented to the Emergency Room complaining of leaking fluid. She was evaluated and found to have low ANDRES, but no measurable cervix and cervix noted to be visually dilated. She was admitted to the antepartum unit for further evaluation and maternal female medicine consultation. On this evaluation, it was felt that the membranes were not ruptured; however, cervical incompetence was identified with incompetent cervix membranes funneling to the external os. She underwent rescue cerclage without complication as previously dictated. The patient was observed postoperatively and remained stable. She reported no contractions, and no significant vaginal bleeding. She was started on vaginal progesterone and discharged home on postoperative day 3, undelivered in stable condition. She is scheduled to follow up in the office in 1 week. Discharge instructions were discussed with the patient and family. Dictated By: Valerie Reddy MD Date Dictated: 08/21/2024 17:51:35 Date Transcribed: 08/21/2024 18:16:59 [facility]/JENNA/SHAUN/ASHLEIGH Receipt ID: [id number] Authenticated and Edited by Valerie Reddy MD On 08/22/24 8:00:28 PM at 0801 PATIENT NAME: JULY SIMENTAL [facility] 2024-08-18 10:20:00 [facility] OB Antepartum Prog Note REPORT#:[id number] REPORT STATUS: Signed REPORT INITIALIZATION DATE:08/18/24 TIME: 1020 PATIENT: JULY SIMENTAL UNIT #: [id number] ROOM/BED: [address] : 99 AGE: 23 SEX: F ATTEND: Valerie Reddy MD ADM AUTHOR: Tejal Reilly MD REPT SERVICE DT/TIME: 08/18/24 1020 * ALL edits or amendments must be made on the electronic/computer document * Subjective Subjective Patient reports: Comments: no complaints. feeling better than yesterday, no arm pain, no shortness of breath(pt reports did not feel short of breath at any time). denies flank pain, dysuria. Objective Nursing Documentation Review Nursing data: The data set between the solid lines has been imported from nursing documentation. Any exceptions have been noted below under Provider comments. ROM date: ROM time: Labor onset date: Labor onset time: Provider comments on imported nursing data: [] VS: Last Documented: Result Date Time B/P Mean 98.0 08/18 0828 B/P 128/80 08/18 0828 Pulse 96 08/18 0828 Pulse Ox 100 08/18 0049 O2 Delivery Room air 08/17 1822 Resp 18 08/17 182 Temp 98.4 08/17 1754 Vital Signs Date Temp Pulse Resp B/P B/P Mean Pulse Ox FiO2 08/17-08/18 98.0-99.4 96-138 18 118-142/63-85 83.0-98.0 98-100 PATIENT WEIGHT: Weight (lb): 205 Weight (oz): 8.04 Weight (kg): 91.400 Lungs: clear to auscultation Neuro: Exam: alert, oriented x3, normal speech Abdomen: gravid, soft, no abnormal tenderness Uterus: non-tender Lower extremities: Edema: none Baby A: Baby A variability: moderate 6-25 bpm Baby A accelerations: 15 X 15 Baby A decelerations: none Baby A FHR category: category 1 Findings/data: Laboratory Tests: 08/18 08/17 08/17 08/17 08/17 0853 1630 1550 1550 1550 Chemistry Sodium (136 - 145 mEq/L) 137 Potassium (3.4 - 4.5 mEq/L) 3.2 L Chloride (98 - 107 mEq/L) 106 Carbon Dioxide (20 - 31 mEq/L) 23 Anion Gap (10 - 20) 11 BUN (8 - 23 mg/dL) <5 L Creatinine (0.55 - 1.02 mg/dL) 0.5 L Glomerular Filtr Rate (>60 ml/min) 134.23 Glucose (74 - 106 mg/dL) 104 Lactic Acid (0.5 - 2.2 mmol/L) 1.3 Calcium (8.3 - 10.6 mg/dL) 9.0 Total Bilirubin (0.3 - 1.2 mg/dL) 0.4 AST (< 34 units/L) 23 ALT (10 - 49 units/L) 35 Total Alk Phosphatase (46 - 116 units/L) 102 Troponin I High Sens (< 34 pg/mL) <2.5 Total Protein (5.7 - 8.2 g/dL) 7.8 Albumin (3.2 - 4.8 g/dL) 4.8 TSH (0.55 - 4.78) 1.46 Coagulation PT (9.8 - 13.3 secs) 11.1 INR 0.98 PTT ([place]) (26.2 - 37.2 secs) 28 Hematology WBC (6.5 - 12.3 K/mm3) 14.0 H 16.8 H RBC (3.51 - 4.69 M/mm3) 3.50 L 4.40 Hgb (10.1 - 13.8 g/dL) 10.1 12.8 Hct (32.5 - 41.8 %) 31.6 L 39.5 MCV (84.6 - 96.6 fL) 90.3 89.8 MCH (27.3 - 33.9 pg) 28.9 29.1 MCHC (32.0 - 34.2 gm/dL) 32.0 32.4 RDW (12.2 - 16.3 %) 13.0 12.9 Plt Count (134 - 363 K/mm3) 308 391 H MPV (9.2 - 12.7 fL) 10.4 10.3 Neut % (Auto) (57.9 - 77.3 %) 74.7 85.8 H Lymph % (Auto) (14.5 - 29.7 %) 17.0 10.0 L [place] % (Auto) (3.6 - 10.2 %) 6.8 3.4 L Eos % (Auto) (0.0 - 3.0 %) 0.5 0.0 Baso % (Auto) (0.1 - 0.9 %) 0.3 0.2 Neut # (Auto) (K/mm3) 10.5 14.4 Lymph # (Auto) (K/mm3) 2.4 1.7 [place] # (Auto) (K/mm3) 1.0 0.6 Eos # (Auto) (K/mm3) 0.07 0 Baso # (Auto) (K/mm3) 0.0 0.0 08/17 1540 Urines Urine Color (YELLOW) YELLOW Urine Appearance (CLEAR) CLOUDY * Urine pH (5 - 9) 6.0 Ur Specific [place] (1.001 - 1.035) >1.035 H Urine Protein (NEG) 1+ H Urine Glucose (UA) (NEG) NEGATIVE Urine Ketones (NEG) 1+ H Urine Blood (NEG) NEG Urine Nitrite (NEG) NEG Urine Bilirubin (NEG) NEGATIVE Urine Urobilinogen (NEG mg/dL) NEGATIVE Ur Leukocyte Esterase (NEG) 2+ H Urine RBC (NONE SEEN #/hpf) 6-10 H Urine WBC (NONE SEEN #/hpf) 21-30 H Ur Epithelial Cells (RARE - FEW #/HPF) MODERATE H Microbiology: Date/Time Procedure - Status Source Growth 08/17 1650 Blood Culture - RES BLOOD 08/17 1650 Blood Culture Gram Stain - RES BLOOD 08/17 1642 Blood Culture - RES BLOOD 08/17 1642 Blood Culture Gram Stain - RES BLOOD 08/17 1607 Urine Culture - RES URINE Recent Impressions: CAT SCAN - CTA CHEST FOR PE 08/17 1706 Report Impression - Status: SIGNED Entered: 08/17/2024 5991 IMPRESSION: No acute pulmonary embolus is identified. No acute findings in the chest. Impression By: [facility] [place] - Miguel May M.D. Diagnosis, Assessment Plan Diagnosis, Assessment Plan Free Text A P: IUP at 26.2 admitted for IV hydration and oral antibiotics for suspected UTI. she reports her initial symptoms of right arm heaviness is resolved, thinks that she slept on it wrong. she denies having shortnes of breath at any time. patient tachycardic on admission with elevated WBC of 16.9 and code sepsis was called. work up negative. WBC 14 today. negative PE work up. reports elevated d- dimer at outside facility, I reassured her that this can be normal during . afebrile here. awaiting urine culture. reassuring FHT will d/c home with po macrobid to complete 1 week course. has follow up scheduled with dr. reddy on Tuesday for routine ob check and glucola. at 1025 RPT #:[id number] END OF REPORT [facility] 2024-08-18 07:11:00 [facility] ([facility]) Clinical Note REPORT#:[id number] REPORT STATUS: Signed REPORT INITIALIZATION DATE:08/18/24 TIME: 710 PATIENT: JULY SIMENTAL UNIT #: [id number] ROOM/BED: [facility] : 99 AGE: 23 SEX: F ATTEND: Valerie Reddy MD ADM AUTHOR: Kelsey Tong MD REPT SERVICE DT/TIME: 08/18/24 0711 * ALL edits or amendments must be made on the electronic/computer document * Clinical Note Note: OB X-COVER: Patient is a at 26.1 weeks with a history of cerclage presents complaining of concerns of possible PE. She states that she woke up this morning with right arm pain and nausea. She was seen at [facility] ER where they did do a CT PE but were not able to get conclusive results. Patient states that when they had ambulated her there her O2 sats had dropped into the 81. Patient states that she does not have any shortness of breath or chest pain. Patient states that she came here because they told her they were going to transfer her to somewhere else. + recent diarrhea, + ketones in her urine (poss contaminated specimen) SATURATION at T: 100% + tachycardia; CT chest: neg; per sepsis protocol, pt w/tachy and incr wbc, she meets criteria for treatment. She was administered abtcs in the ER and was transferred to [facility] for observation d/t heart rate NST in ER cat 1 for gest age at 0715 RPT #:[id number] END OF REPORT [facility] 2024-08-17 15:59:00 [facility] ([facility]) EMERGENCY PROVIDER REPORT REPORT#:[id number] REPORT STATUS: Signed DATE:08/17/24 TIME: 155 PATIENT: JULY SIMENTAL UNIT #: [id number] [address] AGE: 23 SEX: F PCP PHYS: Valerie Reddy MD SERVICE AUTHOR: Lucy Wilson MD REP SRV REP SRV TM: 1559 * ALL edits or amendments must be made on the electronic/computer document * See Addendum HPI-Preg Under 20 Weeks General Initial Greet Date/Time 08/17/24 1539 Presentation Chief Complaint Hx Obtained From Patient Onset Occurred Today Symptom Duration Since onset Associated with Denies: Blood in urine, Dysuria, Fever, Hematuria, Nausea, Rash, Urinary frequency, UTI symptoms, Vaginal bleeding, Vaginal blistering/lesion, Vaginal discharge, Vomiting. Free Text HPI Notes Free Text HPI Notes Patient is a at 26 weeks with a history of cerclage presents complaining of concerns of possible PE. She states that she woke up this morning with right arm pain and nausea. She was seen at [facility] ER where they did do a CT PE but were not able to get conclusive results. Patient states that when they had ambulated her there her O2 sats had dropped into the 81. Patient states that she does not have any shortness of breath or chest pain. Patient states that she came here because they told her they were going to transfer her to somewhere else. Risk-Preg Under 20 Weeks Risk Stratification Ectopic Risk factors N/A Review of Systems ROS Statements All systems rev neg except as marked. Past Medical History - Adult Stated Complaint TO R/O PE,TACHYCARDIA,26 WEEKS Allergies Coded Allergies: cantaloupe (Mild, HIVES 08/17/24) No Known Drug Allergies (08/17/24) Home Medications Active Scripts PROGESTERONE (ENDOMETRIN VAGINAL INSERT) 200 MG VAGINAL BEDTIME PROGESTERONE (ENDOMETRIN VAGINAL INSERT) 200 MG VAGINAL BEDTIME #60 INSERT Ref 5 Prov: 07/04/24 Reported Medications PNV/FE FUM/FA ( 19) 1 TAB PO DAILY Pt reports no significant: Past medical history, Past surgical history, Family history, Social history Smoking status for patients 13 years old or older: Never Smoker Physical Exam Vital Signs Vital Signs First Documented: Result Date Time Pulse Ox 98 08/17 1539 B/P 121/85 08/17 1539 Temp 98.0 08/17 1539 Pulse 128 08/17 1539 Resp 18 08/17 1539 O2 Delivery Room air 08/17 1645 B/P Mean 93 08/17 1745 Last Documented: Result Date Time Pulse Ox 100 08/17 1822 B/P 130/74 08/17 1822 O2 Delivery Room air 08/17 182 Pulse 136 08/17 1822 Resp 18 08/17 1822 B/P Mean 97 08/17 1754 Temp 98.4 08/17 1754 Review of Vital Signs Reviewed Basic Physical Exam Basic PE EXT: No gross abnormality, SKIN: No rashes, warm/dry, PSYCH: NL thought content Focused PE General/Const General/Const Awake, Alert Ears/Nose/Throat Ears/Nose/Throat Airway patent, Mucous membranes moist, Pharynx NL Resp/Chest Respiratory/Chest Breath sounds NL, Breath sounds = bilat, No respiratory distress, No rales, No rhonchi, No wheezing Cardiovascular Cardiovascular Heart rate NL, Regular rhythm, Heart sounds NL, Peripheral circulation NL Abdomen/GI Abdomen/GI Soft, Non-tender, No guarding, No rebound MS Back Back Inspection NL, Non-tender, No CVA tenderness Genitourinary General Exam deferred Neurologic Neurologic Oriented X3, Speech NL, No motor deficits, No sensory deficits Interpretation Diagnostics Lab Results Interpretation Results Laboratory Tests 08/17/24 1550: [Embedded Image Not Available] Laboratory Tests: 08/17 08/17 08/17 08/17 08/17 1630 1550 1550 1550 1540 Chemistry Sodium (136 - 145 mEq/L) 137 Potassium (3.4 - 4.5 mEq/L) 3.2 L Chloride (98 - 107 mEq/L) 106 Carbon Dioxide (20 - 31 mEq/L) 23 Anion Gap (10 - 20) 11 BUN (8 - 23 mg/dL) <5 L Creatinine (0.55 - 1.02 mg/dL) 0.5 L Glomerular Filtr Rate (>60 ml/min) 134.23 Glucose (74 - 106 mg/dL) 104 Lactic Acid (0.5 - 2.2 mmol/L) 1.3 Calcium (8.3 - 10.6 mg/dL) 9.0 Total Bilirubin (0.3 - 1.2 mg/dL) 0.4 AST (< 34 units/L) 23 ALT (10 - 49 units/L) 35 Total Alk Phosphatase (46 - 116 102 units/L) Troponin I High Sens (< 34 pg/mL) <2.5 Total Protein (5.7 - 8.2 g/dL) 7.8 Albumin (3.2 - 4.8 g/dL) 4.8 TSH (0.55 - 4.78) 1.46 Coagulation PT (9.8 - 13.3 secs) 11.1 INR 0.98 PTT ([place]) (26.2 - 37.2 secs) 28 Hematology WBC (6.5 - 12.3 K/mm3) 16.8 H RBC (3.51 - 4.69 M/mm3) 4.40 Hgb (10.1 - 13.8 g/dL) 12.8 Hct (32.5 - 41.8 %) 39.5 MCV (84.6 - 96.6 fL) 89.8 MCH (27.3 - 33.9 pg) 29.1 MCHC (32.0 - 34.2 gm/dL) 32.4 RDW (12.2 - 16.3 %) 12.9 Plt Count (134 - 363 K/mm3) 391 H MPV (9.2 - 12.7 fL) 10.3 Neut % (Auto) (57.9 - 77.3 %) 85.8 H Lymph % (Auto) (14.5 - 29.7 %) 10.0 L [place] % (Auto) (3.6 - 10.2 %) 3.4 L Eos % (Auto) (0.0 - 3.0 %) 0.0 Baso % (Auto) (0.1 - 0.9 %) 0.2 Neut # (Auto) (K/mm3) 14.4 Lymph # (Auto) (K/mm3) 1.7 [place] # (Auto) (K/mm3) 0.6 Eos # (Auto) (K/mm3) 0 Baso # (Auto) (K/mm3) 0.0 Urines Urine Color (YELLOW) YELLOW Urine Appearance (CLEAR) CLOUDY A Urine pH (5 - 9) 6.0 Ur Specific [place] (1.001 - 1.035) >1.035 H Urine Protein (NEG) 1+ H Urine Glucose (UA) (NEG) NEGATIVE Urine Ketones (NEG) 1+ H Urine Blood (NEG) NEG Urine Nitrite (NEG) NEG Urine Bilirubin (NEG) NEGATIVE Urine Urobilinogen (NEG mg/dL) NEGATIVE Ur Leukocyte Esterase (NEG) 2+ H Urine RBC (NONE SEEN #/hpf) 6-10 H Urine WBC (NONE SEEN #/hpf) 21-30 H Ur Epithelial Cells (RARE - FEW MODERATE H #/HPF) Microbiology: Date/Time Procedure - Status Source Growth 08/17 1650 Blood Culture - RES BLOOD 08/17 1650 Blood Culture Gram Stain - RES BLOOD 08/17 1642 Blood Culture - RES BLOOD 08/17 1642 Blood Culture Gram Stain - RES BLOOD 08/17 1607 Urine Culture - RES URINE Recent Impressions: CAT SCAN - CTA CHEST FOR PE 08/17 1706 Report Impression - Status: SIGNED Entered: 08/17/2024 1751 IMPRESSION: No acute pulmonary embolus is identified. No acute findings in the chest. Impression By: [facility] - Miguel May M.D. Lab Imaging Statement Laboratory radiographic studies reviewed and considered in the medical decision-making. Point of Care Testing Pulse Oximetry Pulse Ox % 98 On: Room air Interpretation Interpreted by me Time 1539 ECG #1 Interpretation Date 08/17/24 Time 1552 Interpreted by and reviewed by me NL ECG Interpretation Normal sinus rhythm, No acute ischemic changes, No STEMI, Normal axis, Adequate tracing Rate 133 Rhythm Tachycardia Re-Evaluation MDM Free Text MDM Notes Free Text MDM Notes Patient's blood work showed an increased white blood cell count with a left shift and UA was positive for urinary tract infection. Patient is flagged for sepsis and started on antibiotics with fluids. Patient does state the past few days she has had some diarrhea Additional Text Normal NST Re-Evaluation/Progress Re-Evaluation/Progress Text/Dict Note Updated the family and patient on lab work. We have started giving her fluids and antibiotics for her sepsis. Lactic acid is within normal limits. Still waiting for CTA results Time of Re-Eval 1742 Re-Eval Status Improved ED Course Medication(s) Ordered Medication(s) Ordered: Diagnostic Agents Sig/Lai Start time Last Medication Dose Route Stop Time Status Admin Iopamidol 100 ML .STK-MED ONE 08/17 173 DC 08/17 IV 08/17 1738 173 Electrolytic, Caloric, And Gigi Sig/Lai Start time Last Medication Dose Route Stop Time Status Admin Dextrose/Lactated 1,000 ML .Q10H 08/17 1814 DCD 08/18 Ringer's IV 10/16 1813 0830 Sodium Chloride 50 ML .STK-MED ONE 08/17 1737 DC 08/17 IV 08/17 Consultation Consultation Referral/Consult Name Valerie Reddy MD Requested Call Time 1604 Requested Call Date 08/17/24 Call Returned Call returned Call Returned Time 1604 Call Returned Date 08/17/24 Free Text Consult Notes Discussed results and patient's presentation with Dr. Reddy. He agrees that the patient needs a CT PE for further workup Differential Diagnosis Differential Diagnosis , complete, , incomplete, , inevitable, , missed, , spontaneous, , threatened, Abruptio placentae, Active labor, premature, BCP breakthrough bleeding, Cystitis , acute, Discomfort of , Dysfunct uterine bleeding, Dysmenorrhea, Ectopic , Ectopic preg, ruptured, Endometriosis, Endometritis, demise, Intrauterine , Menometrorrhagia, Menorrhagia, Menses, Miscarriage, Molar , Postcoital bleeding, Urinary tract infection, Vaginal bleeding Patient Discharge Departure Vital Signs/Condition Vital Signs First Documented: Result Date Time Pulse Ox 98 08/17 1539 B/P 121/85 08/17 1539 Temp 98.0 08/17 1539 Pulse 128 08/17 1539 Resp 18 08/17 1539 O2 Delivery Room air 08/17 1645 B/P Mean 93 08/17 1745 Last Documented: Result Date Time Pulse Ox 100 08/17 1821 B/P 130/74 08/17 182 O2 Delivery Room air 08/17 182 Pulse 136 08/17 1822 Resp 18 08/17 1822 B/P Mean 97 08/17 1753 Temp 98.4 08/17 1753 All vital signs available at the time of this entry have been reviewed. Condition Stable Clinical Impression Clinical Impression Primary Impression: Sepsis Secondary Impressions: Tachycardia, UTI (urinary tract infection) Disposition Decision Hospitalize Hosp Physician Name Kelsey Tong MD Request Time 180 Request Date 08/17/24 )( Accepts Hospitalization Yes )( Reason for Hospitalization sepsis, uti, dehydration )( Accepted Time 180 )( Accepted Date 08/17/24 Call Information admit to obs and IV hydration Discharge/Care Plan Counseled Regarding Diagnosis, Lab results, Imaging studies, Need for admission (Auto) Prescriptions Current Visit Scripts NITROFURANTOIN/NITROFURAN MAC (MACROBID) 100 MG PO BID NITROFURANTOIN/NITROFURAN MAC (MACROBID) 100 MG PO BID #14 CAP Admit Note I have spoken with the patient and/or caregivers. I have explained the patient's condition, diagnoses and treatment plan based on the information available to me at this time. I have answered the patient's and/or caregiver's questions and addressed any concerns. The patient and/or caregivers have as good an understanding of the patient's diagnosis, condition and treatment plan as can be expected at this point. The patient has been stabilized within the capability of the emergency department. The patient will be transported for further care and management or will be moved to an observation or inpatient service. I have communicated with the staff or medical practitioner taking over this patient's care. at 1719 Addendum 1: 08/24/24 0802 by Lucy Wilson MD Patient Addendum Addendum Date/Time of Sepsis Diagnosis: (08/17/2024 17:12) Patient meets criteria for Maternal Sepsis defined as: 2 SIRS + SUSPECTED OR KNOWN INFECTION Assessment: Sepsis Secondary to Infection (INTRA ABD / UTI) Plan: - Code Sepsis called 08/17/2024 16:30 - Lab and cultures ordered. - Lactic Acid < 2.0 - First Antibiotic (ROCEPHIN 08/17 16:51) was given within first hour - IVF (Normal Saline 3,123 mls 08/17/2024 16:44); If lactic acid comes back> 4 and/or patient Progresses to Septic Shock, will get 30ml/kg IVF required SIRS CRITERIA MET: (MATERNAL HEART RATE 128, WBC 16.8) ORGAN DYSFUNCTION: (LACTIC ACID RESULT 1.3) SEPSIS REASSESSMENT COMPLETED AT THIS TIME NO SEVERE SEPSIS OR SEPTIC SHOCK. NO PERSISTENT HYPOTENSION at 0802 RPT #:[id number] END OF REPORT [facility] 2024-08-17 15:52:00 [id number] [facility] [address] [place], [place] [address] PATIENT NAME: JULY SIMENTAL ADMIT DATE: 08/17/24 ACCOUNT NO: [id number] ROOM NO: F.[facility] AGE: 23 SEX: F ADMITTING PHYSICIAN: Valerie Reddy MD ATTENDING PHYSICIAN: Valerie Reddy MD Order: [id number] Test Reason : TACHYCARDIA Test Date/Time Stamp: TueAug 17 2024 15:52:25 Blood Pressure : / mmHG Vent. Rate : 133 BPM Atrial Rate : 133 BPM P-R Int : 122 ms QRS Dur : 080 ms QT Int : 284 ms P-R-T Axes : 065 066 020 degrees QTc Int : 422 ms Sinus tachycardia Poor r wave progression suggestive Anterior scar, COPD or lead placement error Nonspecific ST abnormality Abnormal ECG No previous ECGs available Confirmed by ANNA DIOP MD ([id number]) on 08/20/2024 9:06:43 PM Referred By: Valerie Reddy Confirmed by:ANNA DIOP MD at 2106 PATIENT NAME: JULY SIMENTAL [facility] 2024-08-17 13:45:13 Patient leaving AMA/without final disposition, discussed risks of leaving against medical advice/final dispositon, Dr. Restrepo aware and notified of patient's decision. Patient encouraged to seek medical attention for any new/prolonged/worsening of symptoms and stressed importance of follow up with a medical provider as soon as possible. AMA form explained, patient signed form. IV d'cd, dressing to site. Patient leaving ambulatory with steady gait, appears in no distress. Jessica Suresh RN [facility] 2024-08-17 13:43:59 Pt wants to leave AMA. Provider notified. Pt was notified of the risk of leaving AMA, and pt states she is aware of all risks. She wants to her personal OB doctor if any procedures are to be done. She states nothing against treating doctor, she prefers her primary doctor and she doesn't want to wait to be transfer by EMS. [facility] 2024-08-17 11:20:00 Walk tested the patient, room air saturation dropped to 82% with a good waveform while ambulating and heart rate went up to 118 bpm. The moment patient sat and laid back in bed the room air saturation went up 98% and heart rate 95-98 bpm. ED provider and primary RN informed. Nancy Cintron RN [facility] 2024-08-17 08:04:35 Patient states:" It started at 5 am (pain in right arm) it was just a little soreness at first. It started in my shoulder and went down to my arm. I started having nausea like 30 minutes later. I called the triage nurse and she said for me to come in a make sure my levels are good" Denies injury. Pmhx: modified bedrest. Cervial cerclage. Currently 26 weeks . Denies abd pain/ bleeding. Reports discharge that is normal. Isabella Mcguire RN [facility] 2024-07-10 10:46:00 [facility] ([facility]) ZOLTAN Evaluation Note REPORT#:[id number] REPORT STATUS: Signed REPORT INITIALIZATION DATE:07/10/24 TIME: 1045 PATIENT: JULY SIMENTAL UNIT #: [id number] ROOM/BED: : 99 AGE: 23 SEX: F ATTEND: Valerie Reddy MD ADM DT: AUTHOR: Hakeem Godwin MD REPT SERVICE DT/TIME: 07/10/24 1046 * ALL edits or amendments must be made on the electronic/computer document * ZOLTAN History HPI: 23 yo g1 IUP 20w5d with episode of vaginal pink d/c also frequent urination withg dribbling denies pelvic pain or LOF rescue cerclage at 19 w on vag progesterone history: : 1 Past medical history: denies PMH Past surgical history: ovarian cystectomy right x torsion Social history: no alcohol use, no tobacco use, no drug use Allergies Coded Allergies: cantaloupe (Mild, HIVES 06/29/24) No Known Drug Allergies (06/29/24) Review of Systems All systems rev neg: except as marked Objective General VS: PATIENT WEIGHT: Weight (lb): Weight (oz): Weight (kg): Physical Exam Cardiac: regular rate and rhythm Lungs: unlabored breathing Neuro: Exam: alert, oriented x3, normal speech Abdomen: gravid, soft Uterine activity: Monitor: toco Frequency (description): none Pelvic exam: Sterile speculum exam: visually closed, no pooling, no bleeding Cervical/ exam: Dilatation (cm): 0 - closed FHR evaluation: Baseline: 150 bpm Membranes: Membranes: Intact Diagnosis, Assessment Plan Diagnosis, Assessment Plan Free Text A P: cerclage in place closed cx no bleeding or d/c macrobid for uti symptoms patient is constipated , rx stool softeners at 1051 RPT #:[id number] END OF REPORT [facility] 2024-07-04 12:34:00 [facility] ([facility]) OB Antepartum Prog Note REPORT#:[id number] REPORT STATUS: Signed REPORT INITIALIZATION DATE:07/04/24 TIME: 1234 PATIENT: JULY SIMENTAL UNIT #: [id number] ROOM/BED: [address] : 99 AGE: 23 SEX: F ATTEND: Valerie Reddy MD ADM AUTHOR: Valerie Reddy MD REPT SERVICE DT/TIME: 07/04/24 1234 * ALL edits or amendments must be made on the electronic/computer document * Subjective Subjective Patient reports: Comments: no c/o. no pain. no ctx. some d/c with vag progesterone. feeling some FM. Objective Nursing Documentation Review Nursing data: The data set between the solid lines has been imported from nursing documentation. Any exceptions have been noted below under Provider comments. ROM date: ROM time: Labor onset date: Labor onset time: Provider comments on imported nursing data: [] VS: Last Documented: Result Date Time B/P Mean 84.0 07/03 2048 B/P 121/61 07/03 2048 Pulse 96 07/03 2048 Pulse Ox 98 07/03 1750 Temp 98.2 07/03 0901 Resp 16 07/03 0901 O2 Delivery Room air 07/01 1130 O2 Flow Rate 10 07/01 1105 Vital Signs Date Temp Pulse Resp B/P B/P Mean Pulse Ox FiO2 07/03 93-96 119-121/61 84.0 98 PATIENT WEIGHT: Weight (lb): 203 Weight (oz): Weight (kg): 92.300 HEENT: normocephalic w/o injury Abdomen: gravid, soft, no abnormal tenderness Uterus: soft, tender, gravid Baby A: Baby A notes: 140 Diagnosis, Assessment Plan Diagnosis, Assessment Plan Assessment: 19 wk, POD 3 s/p rescue creclage for PCD. cont vag progesterone. stable, d/c home. at 1234 RPT #:[id number] END OF REPORT [facility] 2024-07-03 07:52:00 [facility] ([facility]) OB Antepartum Prog Note REPORT#:[id number] REPORT STATUS: Signed REPORT INITIALIZATION DATE:07/03/24 TIME: 751 PATIENT: JULY SIMENTAL UNIT #: [id number] ROOM/BED: [address] : 99 AGE: 23 SEX: F ATTEND: Valerie Reddy MD ADM AUTHOR: Valerie Reddy MD REPT SERVICE DT/TIME: 07/03/24 0752 * ALL edits or amendments must be made on the electronic/computer document * Subjective Subjective Patient reports: Comments: no c/o. no pain. no ctx. some d/c with vag progesterone. feeling some FM. Objective Nursing Documentation Review Nursing data: The data set between the solid lines has been imported from nursing documentation. Any exceptions have been noted below under Provider comments. ROM date: ROM time: Labor onset date: Labor onset time: Provider comments on imported nursing data: [] VS: Last Documented: Result Date Time B/P Mean 88.0 07/02 1908 Pulse Ox 99 07/02 1908 B/P 121/69 07/02 1908 Pulse 96 / 1908 Resp 16 07/02 1908 O2 Delivery Room air 07/01 1130 O2 Flow Rate 10 07/01 1105 Temp 97.4 07/01 1054 Vital Signs Date Temp Pulse Resp B/P B/P Mean Pulse Ox FiO2 / 81-96 16 121-123/69-76 88.0-94.0 99-100 PATIENT WEIGHT: Weight (lb): 203 Weight (oz): Weight (kg): 92.300 Medications: Active Meds + DC'd Last 24 Hrs Progesterone (ENDOMETRIN 100MG) 200 MG BEDTIME VAGINAL (CKD) Docusate Sodium (DOCUSATE SODIUM 100 MG CAP) 100 MG Q12HR PO Multivit/Folic Acid/Iron ( Vitamin Tablet) 1 TAB DAILY PO Acetaminophen (ACETAMINOPHEN 325 MG TAB) 650 MG Q4H PRN PRN PO Al Hydrox/Mg Hydrox/Simethicone (Maalox Plus Oral Liquid) 30 ML Q4H PRN PRN PO Magnesium Hydroxide (MILK OF MAGNESIA 30 ML UD) 30 ML Q6H PRN PRN PO Ondansetron Base (ZOFRAN ODT 4MG) 4 MG Q4H PRN PRN PO Ondansetron HCl (ZOFRAN 2 MG/ML 4 MG SYR) 4 MG Q4H PRN PRN IV Polyethylene Glycol (POLYETHYLENE GLYCOL PKT) 17 GM DAILY PRN PRN PO Promethazine HCl (PHENERGAN 25 MG SUPP) 25 MG Q6H PRN PRN RECTAL HEENT: normocephalic w/o injury Lungs: unlabored breathing Abdomen: gravid, soft, no abnormal tenderness Baby A: Baby A notes: 140 Diagnosis, Assessment Plan Diagnosis, Assessment Plan Assessment: 19 wk, POD 2 s/p rescue creclage for PCD. cont vag progesterone. if remains stable likely d/c home tomorrow. at 0753 RPT #:[id number] END OF REPORT [facility] 2024-07-02 12:43:00 [facility] OB Antepartum Prog Note REPORT#:[id number] REPORT STATUS: Signed REPORT INITIALIZATION DATE:07/02/24 TIME: 1243 PATIENT: JULY SIMENTAL UNIT #: [id number] [address] AGE: 23 SEX: F ATTEND: Valerie Reddy MD ADM AUTHOR: Valerie Reddy MD REPT SERVICE DT/TIME: 07/02/24 1243 * ALL edits or amendments must be made on the electronic/computer document * Subjective Subjective Patient reports: Comments: no c/o. no pain. no ctx. some light brownish d/c. Objective Nursing Documentation Review Nursing data: The data set between the solid lines has been imported from nursing documentation. Any exceptions have been noted below under Provider comments. ROM date: ROM time: Labor onset date: Labor onset time: Provider comments on imported nursing data: [] VS: Last Documented: Result Date Time B/P Mean 94.0 07/02 0842 Pulse Ox 100 / 0842 B/P 123/76 / 0842 Pulse 81 / 0842 O2 Delivery Room air 07/01 1130 Resp 15 07/01 1130 O2 Flow Rate 10 07/01 1105 Temp 97.4 07/01 1054 Vital Signs Date Temp Pulse Resp B/P B/P Mean Pulse Ox FiO2 /-07/02 81-86 122-123/72-76 92.0-94.0 98-100 PATIENT WEIGHT: Weight (lb): 203 Weight (oz): Weight (kg): 92.300 Medications: Active Meds + DC'd Last 24 Hrs Cefazolin Sodium (ANCEF 2 GM VIAL) 2 GM Q8H IV (DC) Sodium Chloride (SODIUM CHLORIDE 0.9% 100 mL MBP) 100 ML Fentanyl Citrate (SUBLIMAZE 2 ML) 50 MCG PACU ASDIR PRN PRN IV (DC) Hydromorphone HCl (DILAUDID) 0.5 MG PACU Q10MIN PRN PRN IV (DC) Ondansetron HCl (ZOFRAN 2 MG/ML 4 MG SYR) 4 MG PACU ONCE PRN IV (DC) Oxycodone HCl (OXYIR 5MG TAB) 5 MG PACU ONCE PRN PO (DC) Promethazine HCl (Phenergan 25 MG) 12.5 MG PACU ONCE PRN IM (DC) Docusate Sodium (DOCUSATE SODIUM 100 MG CAP) 100 MG Q12HR PO Multivit/Folic Acid/Iron ( Vitamin Tablet) 1 TAB DAILY PO Acetaminophen (ACETAMINOPHEN 325 MG TAB) 650 MG Q4H PRN PRN PO Al Hydrox/Mg Hydrox/Simethicone (Maalox Plus Oral Liquid) 30 ML Q4H PRN PRN PO Magnesium Hydroxide (MILK OF MAGNESIA 30 ML UD) 30 ML Q6H PRN PRN PO Ondansetron Base (ZOFRAN ODT 4MG) 4 MG Q4H PRN PRN PO Ondansetron HCl (ZOFRAN 2 MG/ML 4 MG SYR) 4 MG Q4H PRN PRN IV Polyethylene Glycol (POLYETHYLENE GLYCOL PKT) 17 GM DAILY PRN PRN PO Promethazine HCl (PHENERGAN 25 MG SUPP) 25 MG Q6H PRN PRN RECTAL Lungs: unlabored breathing Abdomen: gravid, soft, no abnormal tenderness Baby A: Baby A notes: 140 Diagnosis, Assessment Plan Diagnosis, Assessment Plan Free Text A P: 19 wk, POD 1 s/p rescue cerclage, doing well. start vaginal progesterone. possible d/c home later this week if remains stable. at 1244 RPT #:[id number] END OF REPORT [facility] 2024-07-02 08:26:00 [facility] Progress Note REPORT#:[id number] REPORT STATUS: Signed REPORT INITIALIZATION DATE:07/02/24 TIME: 825 PATIENT: JULY SIMENTAL UNIT #: [id number] ROOM/BED: [address] : 99 AGE: 23 SEX: F ATTEND: Valerie Reddy MD ADM AUTHOR: Denny Luciano MD REPT SERVICE DT/TIME: 07/02/24825 * ALL edits or amendments must be made on the electronic/computer document * Subjective Patient reports: asymptomatic Objective General VS/I O: Last Documented: Result Date Time B/P Mean 92.0 07/01 1957 Pulse Ox 98 07/01 1957 B/P 122/72 07/01 195 Pulse 86 07/01 195 O2 Delivery Room air 07/01 1130 Resp 15 07/01 1130 O2 Flow Rate 10 07/01 1105 Temp 97.4 07/01 1054 24 hour I O ending at 0700: 07/02 0700 07/01 1900 Intake Total 530.00 Output Total 160 Balance 370.00 Intake, IV 500.00 Intake, Oral 30 Output, 10 Estimated Blood Loss Output, Urine 150 PATIENT WEIGHT: Weight (lb): 203 Weight (oz): Weight (kg): 92.300 Objective Abdomen: non-tender, soft Results Findings/Data: Vital Signs: Date Time Temp Pulse Resp B/P B/P Pulse O2 O2 Flow FiO2 Mean Ox Delivery Rate 07/01 1957 92.0 07/01 1957 86 122/72 98 07/01 1154 101.0 07/01 1154 90 134/78 03/ 1130 94 15 123/79 99 Room air / 1115 104 17 119/77 100 Room air 03/02 1105 Simple 10 mask 07/01 1100 116 15 128/80 100 Room air / 1054 97.4 150 18 123/77 99 Simple 10 mask Diagnosis, Assessment Plan Diagnosis, Assessment Plan Free Text A P: 19 3/7 weeks inc cx with membrane funnell to ext os s/p post day 1 rescue cerclage pt asymtomatic 200 mg progesterone vaginal qhs home bedrest if stable later in week office f/u at 0829 RPT #:[id number] END OF REPORT [facility] 2024-07-01 10:50:00 [facility] ([facility]) Brief Op Note REPORT#:[id number] REPORT STATUS: Signed REPORT INITIALIZATION DATE:07/01/24 TIME: 1050 PATIENT: JULY SIMENTAL UNIT #: [id number] [address] AGE: 23 SEX: F ATTEND: Valerie Reddy MD ADM AUTHOR: Denny Luciano MD REPT SERVICE DT/TIME: 07/01/24 1050 * ALL edits or amendments must be made on the electronic/computer document * Op/Inv Proc Note - Brief Pre-procedure diagnosis: inc cx 19 weeks cervical dilation Post-procedure diagnosis: same as pre procedure dx Procedures performed: rescue chase cerclage Primary Surgeon: kelsie Staff Physical Therapist(s): none (aneudy) Findings: membranes to ext os Complications: none Estimated blood loss in ml's: 10 cc Specimens removed/altered: none at 1052 RPT #:[id number] END OF REPORT [facility] 2024-07-01 10:49:00 [id number] [facility] [address] [place], [place] [address] PATIENT NAME: JULY SIMENTAL ADMIT DATE: 06/29/24 ACCOUNT NO: [id number] ROOM NO: F.3000 AGE: 23 SEX: F ADMITTING PHYSICIAN: Valerie Reddy MD ATTENDING PHYSICIAN: Valerie Reddy MD OPERATION DATE: 07/01/2024 PREOPERATIVE DIAGNOSIS: 19-week intertrochanteric , incompetent cervix. POSTOPERATIVE DIAGNOSES: 19-week intertrochanteric , incompetent cervix with membranes funneling into internal os. PROCEDURE: Rescue Chase's cerclage. SURGEON: Denny Luciano M.D. SENIOR FINANCIAL ACCOUNTANT: Grant Motta ANESTHESIA: General. ESTIMATED BLOOD LOSS: 10 mL. HISTORY: The patient is a 23-year-old primigravida who was admitted to the hospital with mucus and fluid per vagina that was ROM+ negative. Ultrasound initially had thought there was reduced fluid, but indeed there was normal amniotic fluid volume with membranes bulging into the internal canal to the introitus. The inner cervical os is 3 cm dilated and she is taken for a rescue Chase's cerclage after informed consent. PROCEDURE NOTE: With the patient under adequate anesthesia, she was prepped and draped in the dorsal lithotomy position. The bladder was drained of 150 mL of clear urine. A speculum was placed in the vagina. The membranes were visible and the anterior lip of the cervix was grasped with a ring forceps and a #2 Mersilene suture used to purse string the cervix by taking bites at the cervicovaginal junction at 11 o'clock, 7 o'clock, 5 o'clock, and 1 o'clock and tying securely across the 12 o'clock position. Upon cinching down the suture, the cervix was snugly closed. Multiple knots were thrown and the ends of the suture left approximately 3 cm long. There was no active bleeding upon placement of the stitch. Cervix was snugly closed and had a ge bud appearance and was puckered and she was taken out of the lithotomy position, awakened and transferred to the recovery room in stable condition with IV fluids infusing and was given prophylactic Ancef, which will be continued for two more doses. Dictated By: Denny Luciano MD Date Dictated: 07/01/2024 10:49:42 Date Transcribed: 07/01/2024 11:28:51 PATIENT NAME: JULY SIMENTAL /IIANU/KATHY Receipt ID: [id number] Authenticated by Denny Luciano MD On 07/02/2024 08:25:36 PM at 0825 PATIENT NAME: UJLY SIMENTAL [facility] 2024-07-01 10:45:00 [facility] ([facility]) Clinical Note REPORT#:[id number] REPORT STATUS: Signed REPORT INITIALIZATION DATE:07/01/24 TIME: 1045 PATIENT: JULY SIMENTAL UNIT #: [id number] ROOM/BED: F.3000-A : 99 AGE: 23 SEX: F ATTEND: Valerie Reddy MD ADM AUTHOR: Khalif Motta MD REPT SERVICE DT/TIME: 07/01/24 1045 * ALL edits or amendments must be made on the electronic/computer document * Clinical Note Note: on site property manager hospitalist : asked to surgerically assist with cx cerclage for traction at 1047 RPT #:[id number] END OF REPORT [facility] 2024-06-30 15:51:00 [facility] ([facility]) Clinical Note REPORT#:[id number] REPORT STATUS: Signed REPORT INITIALIZATION DATE:06/30/24 TIME: 1551 PATIENT: JULY SIMENTAL UNIT #: [id number] ROOM/BED: F.3000-A : 99 AGE: 23 SEX: F ATTEND: Valerie Reddy MD ADM AUTHOR: Kelsey Tong MD REPT SERVICE DT/TIME: 06/30/24 1551 * ALL edits or amendments must be made on the electronic/computer document * Clinical Note Note: MFM recs reviewed w/pt and ? answered vss, afeb no somatic complaints; siup at 19+ weeks incompetent cervix w/o PPROM rescue cerclage tomorrow at 1552 RPT #:[id number] END OF REPORT [facility] 2024-06-30 13:18:00 [facility] ([facility]) MF Consultation Note REPORT#:[id number] REPORT STATUS: Signed REPORT INITIALIZATION DATE:06/30/24 TIME: 1317 PATIENT: JULY SIMENTAL UNIT #: [id number] [address] AGE: 23 SEX: F ATTEND: Valerie Reddy MD ADM AUTHOR: Denny Luciano MD REPT SERVICE DT/TIME: 06/30/24 1318 * ALL edits or amendments must be made on the electronic/computer document * History Past History Allergies: Coded Allergies: cantaloupe (Mild, HIVES 06/29/24) No Known Drug Allergies (06/29/24) Objective Physical Exam Abdomen: non-tender, soft Results Findings/Data: Laboratory Tests 06/29 1700 Chemistry Sodium (136 - 145 mEq/L) 141 Potassium (3.4 - 4.5 mEq/L) 4.1 Chloride (98 - 107 mEq/L) 106 Carbon Dioxide (20 - 31 mEq/L) 26 Anion Gap (10 - 20) 13 BUN (8 - 23 mg/dL) 6 L Creatinine (0.55 - 1.02 mg/dL) 0.5 L Glomerular Filtr Rate (>60 ml/min) 134.23 Glucose (74 - 106 mg/dL) 90 Calcium (8.3 - 10.6 mg/dL) 9.5 Total Bilirubin (0.3 - 1.2 mg/dL) 0.3 AST (< 34 units/L) 50 H ALT (10 - 49 units/L) 91 H Total Alk Phosphatase (46 - 116 units/L) 78 Total Protein (5.7 - 8.2 g/dL) 6.9 Albumin (3.2 - 4.8 g/dL) 4.4 Laboratory Tests 06/29 1700 Hematology WBC (6.5 - 12.3 K/mm3) 13.7 H RBC (3.51 - 4.69 M/mm3) 3.99 Hgb (10.1 - 13.8 g/dL) 11.7 Hct (32.5 - 41.8 %) 36.0 MCV (84.6 - 96.6 fL) 90.2 MCH (27.3 - 33.9 pg) 29.3 MCHC (32.0 - 34.2 gm/dL) 32.5 RDW (12.2 - 16.3 %) 13.0 Plt Count (134 - 363 K/mm3) 360 MPV (9.2 - 12.7 fL) 11.2 Neut % (Auto) (57.9 - 77.3 %) 71.6 Lymph % (Auto) (14.5 - 29.7 %) 18.7 [place] % (Auto) (3.6 - 10.2 %) 8.1 Eos % (Auto) (0.0 - 3.0 %) 0.6 Baso % (Auto) (0.1 - 0.9 %) 0.3 Neut # (Auto) (K/mm3) 9.8 Lymph # (Auto) (K/mm3) 2.6 [place] # (Auto) (K/mm3) 1.1 Eos # (Auto) (K/mm3) 0.08 Baso # (Auto) (K/mm3) 0.0 Laboratory Tests 06/29 1430 Other Body Source Membranes Rupture NON-RUPTURED Laboratory Tests 06/29 1430 Urines Urine Color (YELLOW) YELLOW Urine Appearance (CLEAR) Slightly-Cloudy Urine pH (5 - 9) 7.0 Ur Specific [place] (1.001 - 1.035) 1.005 Urine Protein (NEG) NEGATIVE Urine Glucose (UA) (NEG) NEGATIVE Urine Ketones (NEG) TRACE H Urine Blood (NEG) NEG Urine Nitrite (NEG) NEG Urine Bilirubin (NEG) NEGATIVE Urine Urobilinogen (NEG mg/dL) NEGATIVE Ur Leukocyte Esterase (NEG) TRACE H Urine RBC (NONE SEEN #/hpf) 0-2 Urine WBC (NONE SEEN #/hpf) 6-10 H Ur Epithelial Cells (RARE - FEW #/HPF) MODERATE H Amorphous Sediment RARE Urine Bacteria (RARE - FEW /HPF) FEW Urine Mucus (NONE SEEN) RARE Vital Signs: Date Time Temp Pulse Resp B/P B/P Pulse O2 O2 Flow FiO2 Mean Ox Delivery Rate 06/30 0835 79.0 06/30 0835 97.8 92 16 105/59 100 06/29 2100 97.9 16 06/29 2040 97.0 06/29 2040 94 123/81 100 06/29 1827 98.3 98 18 120/69 100 06/29 1625 98.7 99 18 133/83 100 Room air 06/29 1425 98.6 96 18 131/93 98 Laboratory Tests 06/29 1700 Chemistry Sodium (136 - 145 mEq/L) 141 Potassium (3.4 - 4.5 mEq/L) 4.1 Chloride (98 - 107 mEq/L) 106 Carbon Dioxide (20 - 31 mEq/L) 26 Anion Gap (10 - 20) 13 BUN (8 - 23 mg/dL) 6 L Creatinine (0.55 - 1.02 mg/dL) 0.5 L Glomerular Filtr Rate (>60 ml/min) 134.23 Glucose (74 - 106 mg/dL) 90 Calcium (8.3 - 10.6 mg/dL) 9.5 Total Bilirubin (0.3 - 1.2 mg/dL) 0.3 AST (< 34 units/L) 50 H ALT (10 - 49 units/L) 91 H Total Alk Phosphatase (46 - 116 units/L) 78 Total Protein (5.7 - 8.2 g/dL) 6.9 Albumin (3.2 - 4.8 g/dL) 4.4 Laboratory Tests 06/29 1700 Hematology WBC (6.5 - 12.3 K/mm3) 13.7 H RBC (3.51 - 4.69 M/mm3) 3.99 Hgb (10.1 - 13.8 g/dL) 11.7 Hct (32.5 - 41.8 %) 36.0 MCV (84.6 - 96.6 fL) 90.2 MCH (27.3 - 33.9 pg) 29.3 MCHC (32.0 - 34.2 gm/dL) 32.5 RDW (12.2 - 16.3 %) 13.0 Plt Count (134 - 363 K/mm3) 360 MPV (9.2 - 12.7 fL) 11.2 Neut % (Auto) (57.9 - 77.3 %) 71.6 Lymph % (Auto) (14.5 - 29.7 %) 18.7 [place] % (Auto) (3.6 - 10.2 %) 8.1 Eos % (Auto) (0.0 - 3.0 %) 0.6 Baso % (Auto) (0.1 - 0.9 %) 0.3 Neut # (Auto) (K/mm3) 9.8 Lymph # (Auto) (K/mm3) 2.6 [place] # (Auto) (K/mm3) 1.1 Eos # (Auto) (K/mm3) 0.08 Baso # (Auto) (K/mm3) 0.0 Laboratory Tests 06/29 1430 Other Body Source Membranes Rupture NON-RUPTURED Laboratory Tests 06/29 1430 Urines Urine Color (YELLOW) YELLOW Urine Appearance (CLEAR) Slightly-Cloudy Urine pH (5 - 9) 7.0 Ur Specific [place] (1.001 - 1.035) 1.005 Urine Protein (NEG) NEGATIVE Urine Glucose (UA) (NEG) NEGATIVE Urine Ketones (NEG) TRACE H Urine Blood (NEG) NEG Urine Nitrite (NEG) NEG Urine Bilirubin (NEG) NEGATIVE Urine Urobilinogen (NEG mg/dL) NEGATIVE Ur Leukocyte Esterase (NEG) TRACE H Urine RBC (NONE SEEN #/hpf) 0-2 Urine WBC (NONE SEEN #/hpf) 6-10 H Ur Epithelial Cells (RARE - FEW #/HPF) MODERATE H Amorphous Sediment RARE Urine Bacteria (RARE - FEW /HPF) FEW Urine Mucus (NONE SEEN) RARE Results: scan vertex female posterior placena no anomalies 10 ounces andres 14 8/8 bpp s:d 2.85 cx 3.5 cm dilated with membranes at ext os Diagnosis, Assessment Plan Diagnosis, Assessment Plan Free Text A P: 19 2/7 weeks inc cx with membrane funnell to ext os pt asymtomatic significant risk of loss could consider rescue cerclage Plan discussed with: patient Additional comments: face to face consult time 40 minutes at 1322 RPT #:[id number] END OF REPORT [facility] 2024-06-29 20:34:00 [facility] ([facility]) OB Admission / H P REPORT#:[id number] REPORT STATUS: Signed REPORT INITIALIZATION DATE:06/29/24 TIME: 2033 PATIENT: JULY SIMENTAL UNIT #: [id number] ROOM/BED: [address] : 99 AGE: 23 SEX: F ATTEND: Valerie Reddy MD ADM AUTHOR: Alina Huynh MD REPT SERVICE DT/TIME: 06/29/242033 * ALL edits or amendments must be made on the electronic/computer document * OB History Nursing Documentation Review Nursing data: The data set between the solid lines has been imported from nursing documentation. Any exceptions have been noted below under Provider comments. Current data Steroids prior to arrival: ROM date: ROM time: EDC date: Gestational age (labor triage): Post hemorrhage risk score: Prior history : Para: Term: : Abortions spontaneous: Abortions induced: Living children: Ectopic: Stillbirths: Live births: deaths: Number of previous C/S: Reported maternal labs/data Blood type: Rh type: Rubella: Hepatitis B: HIV exposure test: VDRL: Group B beta strep: Rho(D) immune globulin this preg: Monitor mode - UA: Feeding preference: Provider comments on imported nursing data: [] Chief complaint: suspected ruptured memb HPI: 19 week IUD presented to ER co leaking fluid Notes: US no measureable cx ANDRES low around 5 Past History Smoking status for patients 13 years old or older: Never Smoker Allergies: Coded Allergies: cantaloupe (Mild, HIVES 06/29/24) No Known Drug Allergies (06/29/24) Objective General VS: Last Documented: Result Date Time Pulse Ox 100 06/29 182 B/P 120/69 06/29 182 Temp 98.3 06/29 182 Pulse 98 06/29 1827 Resp 18 06/29 182 O2 Delivery Room air 06/29 1625 Vital Signs Date Temp Pulse Resp B/P B/P Mean Pulse Ox FiO2 06/29 98.3-98.7 96-99 18 120-133/69-93 98-100 PATIENT WEIGHT: Weight (lb): Weight (oz): Weight (kg): 92.300 Physical Exam Lungs: unlabored breathing Baby A: Baby A notes: 140 Results Findings/Data: Laboratory Tests: 06/29 06/29 1700 1430 Chemistry Sodium (136 - 145 mEq/L) 141 Potassium (3.4 - 4.5 mEq/L) 4.1 Chloride (98 - 107 mEq/L) 106 Carbon Dioxide (20 - 31 mEq/L) 26 Anion Gap (10 - 20) 13 BUN (8 - 23 mg/dL) 6 L Creatinine (0.55 - 1.02 mg/dL) 0.5 L Glomerular Filtr Rate (>60 ml/min) 134.23 Glucose (74 - 106 mg/dL) 90 Calcium (8.3 - 10.6 mg/dL) 9.5 Total Bilirubin (0.3 - 1.2 mg/dL) 0.3 AST (< 34 units/L) 50 H ALT (10 - 49 units/L) 91 H Total Alk Phosphatase (46 - 116 units/L) 78 Total Protein (5.7 - 8.2 g/dL) 6.9 Albumin (3.2 - 4.8 g/dL) 4.4 Hematology WBC (6.5 - 12.3 K/mm3) 13.7 H RBC (3.51 - 4.69 M/mm3) 3.99 Hgb (10.1 - 13.8 g/dL) 11.7 Hct (32.5 - 41.8 %) 36.0 MCV (84.6 - 96.6 fL) 90.2 MCH (27.3 - 33.9 pg) 29.3 MCHC (32.0 - 34.2 gm/dL) 32.5 RDW (12.2 - 16.3 %) 13.0 Plt Count (134 - 363 K/mm3) 360 MPV (9.2 - 12.7 fL) 11.2 Neut % (Auto) (57.9 - 77.3 %) 71.6 Lymph % (Auto) (14.5 - 29.7 %) 18.7 [place] % (Auto) (3.6 - 10.2 %) 8.1 Eos % (Auto) (0.0 - 3.0 %) 0.6 Baso % (Auto) (0.1 - 0.9 %) 0.3 Neut # (Auto) (K/mm3) 9.8 Lymph # (Auto) (K/mm3) 2.6 [place] # (Auto) (K/mm3) 1.1 Eos # (Auto) (K/mm3) 0.08 Baso # (Auto) (K/mm3) 0.0 Other Body Source Membranes Rupture NON-RUPTURED Urines Urine Color (YELLOW) YELLOW Urine Appearance (CLEAR) Slightly-Cloudy Urine pH (5 - 9) 7.0 Ur Specific [place] (1.001 - 1.035) 1.005 Urine Protein (NEG) NEGATIVE Urine Glucose (UA) (NEG) NEGATIVE Urine Ketones (NEG) TRACE H Urine Blood (NEG) NEG Urine Nitrite (NEG) NEG Urine Bilirubin (NEG) NEGATIVE Urine Urobilinogen (NEG mg/dL) NEGATIVE Ur Leukocyte Esterase (NEG) TRACE H Urine RBC (NONE SEEN #/hpf) 0-2 Urine WBC (NONE SEEN #/hpf) 6-10 H Ur Epithelial Cells (RARE - FEW #/HPF) MODERATE H Amorphous Sediment RARE Urine Bacteria (RARE - FEW /HPF) FEW Urine Mucus (NONE SEEN) RARE Microbiology: Date/Time Procedure - Status Source Growth 06/29 1534 Urine Culture - RECD URINE Recent Impressions: ULTRASOUND - US LTD 06/29 152 Report Impression - Status: SIGNED Entered: 06/29/2024 6563 IMPRESSION: 1. Live intrauterine . 2. No measurable cervix. This examination does not include a complete evaluation. If a evaluation is clinically indicated, and complete OB ultrasound exam is recommended on an elective basis. Impression By: [email or web address] Nicho Peralta MD Diagnosis, Assessment Plan Diagnosis, Assessment Plan Free Text A P: 19 week IUP no measurable cx and low fluid MFM consult in morning at 2120 RPT #:[id number] END OF REPORT [facility] 2024-06-29 16:46:00 [facility] ([facility]) EMERGENCY PROVIDER REPORT REPORT#:[id number] REPORT STATUS: Signed DATE:06/29/24 TIME: 164 PATIENT: JULY SIMENTAL UNIT #: [id number] ROOM/BED: : 99 AGE: 23 SEX: F PCP PHYS: Valerie Reddy MD SERVICE AUTHOR: Frida Adame MD REP SRV REP SRV TM: 1646 * ALL edits or amendments must be made on the electronic/computer document * HPI-Abd Pain F Under 40 General Initial Greet Date/Time 06/29/24 1430 Presentation Chief Complaint fluid leakage Hx Obtained From Patient Free Text HPI Notes Free Text HPI Notes 23-year-old female at 19 weeks gestational age presents with fluid leakage intermittently x 3 days. Patient states the fluid has been clear and nonbloody. Associated with increased urinary frequency. Patient denies dysuria or fever. Patient reports low back pain throughout her entire . She has had care with Dr. Reddy, whom she last saw at a last check at 16 weeks gestation. CLOTILDE 11/22/2024 Risk-Abd Pain F Under 40 )( Ectopic Risk factors reviewed Review of Systems ROS Statements All systems rev neg except as marked. Focused Review of Systems Constitutional Denies: Fever. Respiratory Denies: Cough, non-productive, Cough, productive, Shortness of breath. Cardiovascular Denies: Chest pain. GI Reports: Abdominal pain. Denies: Nausea, Vomiting. Female Reports: , Vaginal discharge. Denies: Dysuria, Vaginal bleeding - abnl. Musculoskeletal Reports: Back pain. Past Medical History - Adult Stated Complaint 19 WEEKS ,LEAKING FLUID Allergies Coded Allergies: cantaloupe (Mild, HIVES 06/29/24) No Known Drug Allergies (06/29/24) Home Medications Discontinued Scripts NITROFURANTOIN/NITROFURAN MAC (MACROBID) 100 MG PO BID NITROFURANTOIN/NITROFURAN MAC (MACROBID) 100 MG PO BID #14 CAPS Prov: 04/23/24 DC: 06/29/24 1458 Therapy completed Reported Medications PNV/FE FUM/FA ( 19) 1 TAB PO DAILY EPINEPHrine (EPIPEN (0.6mL = BOX OF 2)) 0.3 MG IM ONCE Physical Exam Vital Signs Vital Signs First Documented: Result Date Time Pulse Ox 98 06/29 1425 B/P 131/93 06/29 1425 Temp 98.6 06/29 1425 Pulse 96 06/29 1425 Resp 18 06/29 142 Last Documented: Result Date Time Pulse Ox 98 06/29 1425 B/P 131/93 06/29 1425 Temp 98.6 06/29 1425 Pulse 96 06/29 1425 Resp 18 06/29 1425 Review of Vital Signs Reviewed Focused PE General/Const General/Const Awake, Alert, No acute distress, Well appearing, Well developed , Well hydrated, Well nourished, Cooperative, Not toxic appearing MS Head Head Atraumatic, Normocephalic Resp/Chest Respiratory/Chest Atraumatic, Breath sounds NL, Breath sounds = bilat, No respiratory distress, No rales, No rhonchi Cardiovascular Cardiovascular Heart rate NL, Regular rhythm, Heart sounds NL, No gallop, No murmurs Abdomen/GI Abdomen/GI Atraumatic, Soft, Non-tender Text/Dict Notes Gravid abdomen all fundal height appropriate for gestational age just below the umbilical MS Back Back Atraumatic, Inspection NL, No CVA tenderness Skin Skin Atraumatic, Color NL, No rash, Warm, Dry, Intact, Turgor NL, No swelling Genitourinary Text/Dict Notes No appreciable discharge or leakage on external exam Neurologic Neurologic Oriented X3, Speech NL, CN II - XII intact, Gait NL Interpretation Diagnostics Lab Results Interpretation Results Laboratory Tests: 06/29 1429 Other Body Source Membranes Rupture NON-RUPTURED Urines Urine Color (YELLOW) YELLOW Urine Appearance (CLEAR) Slightly-Cloudy Urine pH (5 - 9) 7.0 Ur Specific [place] (1.001 - 1.035) 1.005 Urine Protein (NEG) NEGATIVE Urine Glucose (UA) (NEG) NEGATIVE Urine Ketones (NEG) TRACE H Urine Blood (NEG) NEG Urine Nitrite (NEG) NEG Urine Bilirubin (NEG) NEGATIVE Urine Urobilinogen (NEG mg/dL) NEGATIVE Ur Leukocyte Esterase (NEG) TRACE H Urine RBC (NONE SEEN #/hpf) 0-2 Urine WBC (NONE SEEN #/hpf) 6-10 H Ur Epithelial Cells (RARE - FEW #/HPF) MODERATE H Amorphous Sediment RARE Urine Bacteria (RARE - FEW /HPF) FEW Urine Mucus (NONE SEEN) RARE Microbiology: Date/Time Procedure - Status Source Growth 06/29 1535 Urine Culture - RECD URINE Recent Impressions: ULTRASOUND - US LTD 06/29 1526 Report Impression - Status: SIGNED Entered: 06/29/2024 1607 IMPRESSION: 1. Live intrauterine . 2. No measurable cervix. This examination does not include a complete evaluation. If a evaluation is clinically indicated, and complete OB ultrasound exam is recommended on an elective basis. Impression By: [email or web address] - Jonathan Peralta MD Re-Evaluation MDM Consultation Consultation Referral/Consult Name Alina Huynh MD Laboratory Asst Called DATABASE SUPPORT, On-call physician Laboratory Asst Discussed with supply chain consultant Requested Call Time 1645 Requested Call Date 06/29/24 Call Returned Call returned Call Returned Time 1645 Call Returned Date 06/29/24 Free Text Consult Notes admit on bedrest for MFM consult ok for patient to eat and drink Patient Discharge Departure Vital Signs/Condition Vital Signs First Documented: Result Date Time Pulse Ox 98 06/29 1425 B/P 131/93 06/29 1425 Temp 98.6 06/29 1425 Pulse 96 06/29 1425 Resp 18 06/29 1425 Last Documented: Result Date Time Pulse Ox 98 06/29 1425 B/P 131/93 06/29 1425 Temp 98.6 06/29 1425 Pulse 96 06/29 1425 Resp 18 06/29 1425 All vital signs available at the time of this entry have been reviewed. Condition Stable Clinical Impression Clinical Impression Primary Impression: Incompetent cervix in Secondary Impressions: 19 weeks gestation of Disposition Decision Hospitalize Hosp Physician Name Valerie Reddy MD Hosp Physician DATABASE SUPPORT Request Time 164 Request Date 06/29/24 )( Accepts Hospitalization Yes (accepted by Dr Huynh) )( Reason for Hospitalization see clinical impression )( Accepted Time 1646 )( Accepted Date 06/29/24 Call Information agrees with eval, agrees with plan at 1651 RPT #:[id number] END OF REPORT [facility] 2024-04-23 16:31:00 [facility] ([facility]) EMERGENCY PROVIDER REPORT REPORT#:[id number] REPORT STATUS: Signed DATE:04/23/24 TIME: 1631 PATIENT: JULY SIMENTAL UNIT #: [id number] ROOM/BED: : 99 AGE: 23 SEX: F PCP PHYS: Valerie Reddy MD SERVICE AUTHOR: Osmani Harris MD REP SRV REP SRV TM: 1631 * ALL edits or amendments must be made on the electronic/computer document * Osmani Harris 04/23/24 1631: HPI-Preg Under 20 Weeks General Initial Greet Date/Time 04/23/24 1534 Free Text HPI Notes Free Text HPI Notes G1 @9w4d has had prior US confirming IUP with cardiac activity cc ABD PAIN Right pelvic area sharp/shooting onset at 3 am while sleeping, woke her from her sleep no bleeding, no fever, no vomiting normal appetite normal discharge PMH h/o ovarian cyst, torsion, gets hopsitalized annually for ruptured cysts PSH cystectomy 2/2 ovarian torsion, tympanostomy tubes MEDS ALLERGIES Review of Systems ROS Statements Complete sys rev neg except as marked. Basic Review of Systems Basic ROS ENT: No sore throat, PSYCH: NL thought content Past Medical History - Adult Stated Complaint 9 WKS RLQ ABD PAIN Allergies Coded Allergies: cantaloupe (Severe, ANAPHYLAXIS 04/23/24) Uncoded Allergies: AZTHROMYCIN (HIVES 10/14/08) No Known Contrast Allergies (10/14/08) No Known Food Allergies (10/14/08) No Known Other Allergies (10/14/08) Home Medications Reported Medications PNV/FE FUM/FA ( 19) 1 TAB PO DAILY Calculated Suicide Risk (nurs) No risk Smoking status for patients 13 years old or older: Never Smoker Physical Exam Vital Signs Review of Vital Signs Reviewed Basic Physical Exam Basic PE HEAD: Atraumatic/NC, EYES: PERRL, conj clear, ENT: Membranes moist, NECK: Supple, RESP: No resp distress, CV: Reg rate rhythm, EXT: No gross abnormality, SKIN: No rashes, warm/dry, NEURO: alert oriented, NEURO: gross movement NL, PSYCH: NL thought content Focused PE General/Const General/Const Awake, Alert, No acute distress Abdomen/GI Abdomen/GI Soft Text/Dict Notes RLQ ttp, no rebound/guarding Patient Discharge Departure Vital Signs/Condition Vital Signs First Documented: Result Date Time Pulse Ox 100 04/23 1537 B/P 155/86 04/23 1537 B/P Mean 109 04/23 1537 O2 Delivery Room air 04/23 1537 Temp 98.4 04/23 1537 Pulse 106 04/23 1537 Resp 18 04/23 1537 Last Documented: Result Date Time Pulse Ox 100 04/23 1537 B/P 155/86 04/23 1537 B/P Mean 109 04/23 1537 O2 Delivery Room air 04/23 1537 Temp 98.4 04/23 1537 Pulse 106 04/23 1537 Resp 18 04/23 1537 All vital signs available at the time of this entry have been reviewed. Pt/Provider Handoff Shift Change Note This patient's care has been transferred to the incoming physician Dr. Mars. We discussed: the patient's chief complaint; labs and imaging that have been completed and those that are still pending; procedures that have been completed and those remaining to be done; any treatment provided and the patient's response to treatment; input from consultants (if any); the remaining treatment plan. The incoming physician will follow up on all pending labs and imaging, make any necessary changes to the current impression and/or treatment plan and provide a final disposition. Raj Mars 04/23/242231: HPI-Preg Under 20 Weeks Presentation Chief Complaint Abdominal pain Physical Exam Vital Signs Vital Signs First Documented: Result Date Time Pulse Ox 100 04/23 1537 B/P 155/86 04/23 1537 B/P Mean 109 04/23 1537 O2 Delivery Room air 04/23 1537 Temp 36.9 04/23 1537 Pulse 106 04/23 1537 Resp 18 04/23 1537 Last Documented: Result Date Time Pulse Ox 100 04/23 1537 B/P 155/86 04/23 1537 B/P Mean 109 04/23 1537 O2 Delivery Room air 04/23 1537 Temp 36.9 04/23 1537 Pulse 106 04/23 1537 Resp 18 04/23 1537 Interpretation Diagnostics Lab Results Interpretation Results Laboratory Tests 04/23/24 1649: [Embedded Image Not Available] Laboratory Tests: 04/239 1623 Chemistry Sodium (136 - 145 mEq/L) 137 Potassium (3.4 - 4.5 mEQ/L) 3.9 Chloride (98 - 107 mEq/L) 107 Carbon Dioxide (22 - 31 mEq/L) 24 Anion Gap (10 - 20) 9.9 L BUN (8 - 23 mg/dL) 9 Creatinine (0.55 - 1.02 mg/dL) 0.6 Glomerular Filtr Rate (>60 ml/min) 128.46 Glucose (74 - 106 mg/dL) 89 Calcium (8.3 - 10.6 mg/dL) 9.1 Total Bilirubin (0.3 - 1.2 mg/dL) 0.3 Direct Bilirubin (< 0.3 mg/dL) 0.1 AST (< 34 units/L) 19 ALT (10 - 49 units/L) 22 Total Alk Phosphatase (46 - 116 units/L) 73 Total Protein (5.7 - 8.2 g/dL) 7.5 Albumin (3.2 - 4.8 g/dL) 4.6 Lipase (12 - 53 units/L) 33 Hematology WBC (6.5 - 12.3 K/mm3) 12.2 RBC (3.51 - 4.69 M/mm3) 4.16 Hgb (10.1 - 13.8 g/dL) 12.4 Hct (32.5 - 41.8 %) 37.9 MCV (84.6 - 96.6 fL) 91.1 MCH (27.3 - 33.9 pg) 29.8 MCHC (32.0 - 34.2 gm/dL) 32.7 RDW (12.2 - 16.3 %) 12.9 Plt Count (134 - 363 K/mm3) 310 MPV (9.2 - 12.7 fL) 10.8 Urines Urine Color (YELLOW) YELLOW Urine Appearance (CLEAR) CLOUDY A Urine pH (5 - 9) 6.0 Ur Specific [place] (1.001 - 1.035) 1.025 Urine Protein (NEG) NEGATIVE Urine Glucose (UA) (NEG) NEGATIVE Urine Ketones (NEG) NEGATIVE Urine Blood (NEG) NEG Urine Nitrite (NEG) NEG Urine Bilirubin (NEG) NEGATIVE Urine Urobilinogen (NEG mg/dL) NEGATIVE Ur Leukocyte Esterase (NEG) 2+ H Urine RBC (NONE SEEN #/hpf) 3-5 H Urine WBC (NONE SEEN #/hpf) 0-2 Ur Epithelial Cells (RARE - FEW #/HPF) MODERATE H Amorphous Sediment RARE Urine Bacteria (RARE - FEW /HPF) RARE Urine Mucus (NONE SEEN) 1+ Recent Impressions: ULTRASOUND - US PREG UT TRANSVAGINAL 04/23 1812 Report Impression - Status: SIGNED Entered: 04/23/20241955 IMPRESSION: Single viable 1st trimester intrauterine No acute abnormality is detected. COMMENT: This exam was performed on an emergency basis. As such, it does not include a complete evaluation. If a evaluation is clinically indicated, then a complete OB ultrasound exam is recommended on an elective basis. Impression By: Lesly Bradley MD ULTRASOUND - DUP AB/PEL/SC/LTD 04/23 1812 Report Impression - Status: SIGNED Entered: 04/23/20241955 IMPRESSION: Single viable 1st trimester intrauterine No acute abnormality is detected. COMMENT: This exam was performed on an emergency basis. As such, it does not include a complete evaluation. If a evaluation is clinically indicated, then a complete OB ultrasound exam is recommended on an elective basis. Impression By: Lesly Bradley MD ULTRASOUND - US PREG EVAL 1ST TRIMTR 04/23 1812 Report Impression - Status: SIGNED Entered: 04/23/20241955 IMPRESSION: Single viable 1st trimester intrauterine No acute abnormality is detected. COMMENT: This exam was performed on an emergency basis. As such, it does not include a complete evaluation. If a evaluation is clinically indicated, then a complete OB ultrasound exam is recommended on an elective basis. Impression By: Lesly Bradley MD ULTRASOUND - US ABDOMEN LTD 04/23 1848 Report Impression - Status: SIGNED Entered: 04/23/20241950 IMPRESSION: Nonvisualization of the appendix. Impression By: [email or web address] - Zulma Power MD Re-Evaluation MDM ED Course Medication(s) Ordered Medication(s) Ordered: Anti-Infective Agents Sig/Lai Start time Last Medication Dose Route Stop Time Status Admin Ceftriaxone Sodium 1,000 MG X1ED STA 04/23 2159 DC 04/23 Sodium Chloride 100 ML IV 04/23 2228 2242 Central Nervous System Agents Sig/Lai Start time Last Medication Dose Route Stop Time Status Admin Acetaminophen 1,000 MG X1ED STA 04/23 1724 DC 04/23 PO 04/23 1725 1735 Differential Diagnosis Differential Diagnosis Cystitis, acute, Discomfort of , Ectopic , Endometritis, Urinary tract infection, appendicitis Patient Discharge Departure Clinical Impression Clinical Impression Primary Impression: Right lower quadrant pain Secondary Impressions: Acute cystitis with hematuria Disposition Decision Discharge )( Discharged to Home Yes )( Time 2233 )( Date 04/23/24 Discharge/Care Plan (Auto) Prescriptions Current Visit Scripts NITROFURANTOIN/NITROFURAN MAC (MACROBID) 100 MG PO BID NITROFURANTOIN/NITROFURAN MAC (MACROBID) 100 MG PO BID #14 CAPS Until finished. Take with food. Prescriptions Reviewed Risks, Benefits, Alternative treatment Patient Instructions ED Cystitis Female Adult Additional Instructions Thank you for visiting our Emergency Department. Your condition, though impactful, was found to be stable for discharge. We believe that you should always follow an Emergency Department visit with a visit to your PCP, or Healthcare Consulting Manager, as appropriate. Primary care is an integral part of the continuing care needed after your visit here, and it should be noted that Emergency Medicine is no substitute for the care you receive from your PCP. Please take all medications as discussed. If you have questions that have yet to be answered, please call the ED, or your PCP. Additionally, if your condition worsens, please return here , or seek immediate medical care elsewhere Discharge Note I have spoken with the patient and/or caregivers. I have explained the patient's condition, diagnoses and treatment plan based on the information available to me at this time. I have answered the patient's and/or caregiver's questions and addressed any concerns. The patient and/or caregivers have as good an understanding of the patient's diagnosis, condition and treatment plan as can be expected at this point. The vital signs have been stable. The patient's condition is stable and appropriate for discharge from the emergency department. The patient will pursue further outpatient evaluation with the primary care physician or other designated or consulting physician as outlined in the discharge instructions. The patient and/or caregivers are agreeable to this plan of care and follow-up instructions have been explained in detail. The patient and/or caregivers have received these instructions in written format and have expressed an understanding of the discharge instructions. The patient and/or caregivers are aware that any significant change in condition or worsening of symptoms should prompt an immediate return to this or the closest emergency department or a call to 1. at 0420 at 1041 RPT #:[id number] END OF REPORT [facility] 2023-11-29 10:30:00 Patient would like to cancel the audiogram appt and will call back later to check when we have more available slot for end november , For now this encounter is closed. Ara Whitley [facility] 2023-11-29 09:42:10 July Simental is a 23 year old female Pt is calling to r/s her audio/ENT appointment on the same day. Next available for Dr. Skelton is 12/19. Please advise. [phone] (home) Delvin Medina [facility] 2023-11-29 09:13:19 Patient is scheduled for a hearing test on 12/04. She said she will call back to schedule appt with Dr. Skelton. [facility] 2023-11-29 08:59:30 Copied from [facility] #[id number]. 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 Please contact and advise. Carolyne Lau [facility] 2023-11-28 12:58:01 Attempted to contact pt to re-schedule audio appt, there was no answer, lvm and will attempt to contact again later. Ronna Panchal [facility] 2023-11-28 11:11:19 July Simental is a 23 year old female Pt is calling to r/s her audio from 11/27 before her appointment on 11/30. No template available. Please advise. [phone] (home) Delvin Medina [facility] 2023-11-07 19:06:11 Cortisporin sent in. FRANKLYN-OTOLARYNGOLOGY STAFF [facility] 2023-11-07 18:25:32 Medication sent. See note. FRANKLYN-OTOLARYNGOLOGY STAFF [facility] 2023-11-04 10:21:01 Office visit notes are not available for review at this time. Message routed to Lolita Gutiérrez RN [facility] 2023-11-02 16:38:09 July Simental is a 23 year old female Pt is calling stating the medication that was discussed in clinic yesterday has not be placed in her pharmacy. Please advise. [phone] (home) Delvin Medina [facility] 2023-11-02 12:01:51 Message accidentally closed. Routing to Dr. Skelton to send ear drops. Kristy Bee MA [facility] 2023-09-21 15:15:00 Images from the original note were not included. Venipuncture collection performed by clean technique on the right anticubitus. Total of 1 attempts were made. Slight pressure and a bandage/dressing were applied to the site(s). The patient experienced no complications. The following specimens were processed according to instructions and sent to [facility] laboratories per lab order on 09/21/2023 : LT BLUE SST 3 1 LT GREEN RED LAV 2 PPT DK GREEN (LiHep) DK GREEN (SodH) WALSH DK BLUE (K2) DK BLUE (S) ACD Blood Culture NIPT/NTD PT stated she will finish her natalie am a different day Kristy Mullins 09/21/2023 3:30 PM [facility] 2023-01-13 15:12:09 Formatting of this n ote might be different from the original. Message sent to [facility] team. They will reach out to mother with new OR dates for Dr. Skelton. Nothing further needed. Yeison Goins [facility] 2023-01-13 15:09:30 Formatting of this n ote might be different from the original. If [facility] is notified of patient's request Rupinder Clark [facility] 2023-01-12 09:45:37 Formatting of this n ote might be different from the original. July Simental is a 22 year old female Pt is scheduled for surgery on 04/01/2023 and requesting to have it r/s . Please advise.. Thank You [facility] Notified.. Radha Alcantara [facility] 2022-12-09 08:04:28 Formatting of this n ote might be different from the original. Message sent to patient via [employer] Aleisha Tucker LVN [facility] 2022-12-08 20:25:45 Formatting of this n ote might be different from the original. Patient should use the drops for at least a full 2 week course if she has active drainage from the left ear, longer if with persistent drainage. She can use this up until the surgery date if she is having drainage from the ear closer to her currently scheduled surgery in April. We will see the patient at her upcoming appointment in December. Thank you, Karina Dougherty MD PGY-3 Otolaryngology-Head & Neck Surgery FRANKLYN-OTOLARYNGOLOGY [facility] 2022-12-08 13:06:06 Formatting of this n ote might be different from the original. July Simental is a 22 year old female Patient stated she just started the ear drops she forgot how long can she use it before surgery. Ewelina Nguyen [facility] 2022-11-30 08:14:11 Formatting of this n ote might be different from the original. July Simental is a 22 year old female Attempted to call patient to review pre op and post op appointments needed prior to procedure, no answer, left message. Please confirm appointment dates with patient, if needing to reschedule please notify leeanne. Thank you Leeanne Yana Shay [facility] 2022-11-29 14:04:44 Formatting of this n ote might be different from the original. July Simental is a 22 year old femalea Attempted to call patient to review pre op and post op appointments needed prior to procedure, no answer, left message. Please confirm appointment dates with patient, if needing to reschedule please notify leeanne. [facility] 13:57:59 Formatting of this n ote might be different from the original. July Simental is a 22 year old female Attempted to call patient to schedule pre op appointment, no answer, left message so patient may call us back. Thank you [facility] 13:29:16 Formatting of this n ote might be different from the original. We would prefer the patient to take the ciprodex. We ordered an alternate drop if she can not afford however the ciprodex is preferred. Thank you [facility] 2022-11-16 13:16:14 Formatting of this n ote might be different from the original. Spoke with the patient at [phone]. Pt stated that Ciprodex is not covered by her insurance and it is too expensive. Pt is requesting an alternative medication that is covered by her insurance. Will routed message to provider and team for assistance. Office visit 10/28: Bilateral Chronic Otitis Media: RIGHT EAR: History of Multiple BMT. Currently: Right 4 x 3 mm Dry TM Perforation Will need Tympanoplasty after Left side addressed LEFT EAR: History of Multiple BMT. Currently: Pinpoint Posterior TM Perforation with Chronic Otorrhea Plan is for Left Tympanoplasty. The patient expressed understanding and that she would like to proceed with surgery. Posted for 200 min Will need pre-op 2 weeks before surgery START Ciprodex 4 gtts BID. Lolita Gutiérrez RN [facility] 2022-11-16 13:04:58 Formatting of this n ote might be different from the original. July Simental is a 22 year old female Pt called stating she never picked up ear drops that were prescribed to her due to her insurance not covering medication. Pt would like to know if there is an alternative medication her insurance will cover. Please contact and advise. Brigid Barth [facility]
[2024-12-16 20:07] LABS: Absolute Lymphocytes (CBC) 2.0 K/uL (0.7-4.9); Hematocrit 35.7 % (36.0-45.0); Hemoglobin 11.0 g/dL (12.0-15.0); MCH 23.8 pg (27.0-35.0); MCHC 30.9 g/dL (32.0-36.0); MCV 77.2 fL (80-100); MPV 8.6 fL (7.6-11.3); Nucleated RBC Absolute Count 0.0 (0-0); Nucleated Red Blood Cells % 0.1 % (0-0); RBC Red Blood Cell Count 4.63 M/uL (3.86-4.86); White Blood Count 11.70 thou/uL (4.3-10.9)
[2024-12-16 20:16] LABS: Sqamous Epithelial <5 /HPF (None Seen); Urine Culture Reflex Order NOT NEEDED; Urine Microscopic Reflex YN ORDER UMIC; Urine WBC Clump Rare /HPF (None Seen); Urine Yeast (Budding) Trace /HPF (None Seen)
[2024-12-16 20:17] LABS: Anion Gap 11.6 mEq/L (5.0-15.0); BUN Blood Urea Nitrogen 8.0 mg/dL (7-18); Glucose Level 102.0 mg/dL (74-106); Potassium 3.6 mEq/L (3.5-5.1)
[2024-12-16 20:21] LABS: Influenza A Ag Negative; Influenza B Ag Negative; SARS-CoV-2 Antigen Rapid Res Negative (Negative)
--- NOTE | 2024-12-16 21:20 | ER ---
Nurse's Notes [facility] Name: July Simental Age: 24 yrs Sex: Female : 2000 Arrival Date: 12/16/2024 Time: 18:27 Bed Treatment Private MD: Diagnosis: Nausea Presentation: 12/16 19:09 Chief complaint: Patient states: chills, nausea. Coronavirus screen: Client denies kj2 travel out of the [place] in the last 14 days. Ebola Screen: No symptoms or risks identified at this time. Initial Sepsis Screen: Does the patient meet any 2 criteria? No. Patient's initial sepsis screen is negative. Does the patient have a suspected source of infection? No. Patient's initial sepsis screen is negative. Risk Assessment: Do you want to hurt yourself or someone else? Patient reports no desire to harm self or others. Onset of symptoms is unknown. 19:09 Method Of Arrival: Ambulatory kj2 19:09 Acuity: ARON 3 kj2 Triage Assessment: 19:13 General: Appears in no apparent distress. Behavior is cooperative. Pain: Denies pain. kj2 Neuro: Level of Consciousness is awake, alert, obeys commands, Oriented to person, place, time, situation. Cardiovascular: Patient's skin is warm and dry. Respiratory: Airway is patent Respiratory effort is unlabored. GI: : No signs and/or symptoms were reported regarding the genitourinary system. 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 - Infectious Disease History:: Denies. - Social history:: Smoking status: unknown. Screenin:[facility] ED Fall Risk Assessment (Adult) History of falling in the last 3 months, kj2 including since admission No falls in past 3 months (0 pts) Confusion or Disorientation No (0 pts) Intoxicated or Sedated No (0 pts) Impaired Gait No (0 pts) Mobility Assist Device Used No (0 pt) Altered Elimination No (0 pt) Score/Fall Risk Level 0 - 2 = Low Risk Maintained a safe environment, Hourly rounding (assess needs \T\ fall precautionary measures) done. Abuse screen: Denies threats or abuse. Denies injuries from another. Nutritional screening: No deficits noted. Tuberculosis screening: No symptoms or risk factors identified. Assessment: 19:11 General: see triage assessment. Pain: Denies pain. Neuro: Level of Consciousness is kj2 awake, alert, obeys commands, Oriented to person, place, time, situation. Cardiovascular: Patient's skin is warm and dry. Respiratory: Airway is patent Respiratory effort is unlabored. GI: No signs and/or symptoms were reported involving the gastrointestinal system. : No signs and/or symptoms were reported regarding the genitourinary system. 20:16 Reassessment: Patient appears in no apparent distress at this time. Patient and/or kj2 family updated on plan of care and expected duration. Pain level reassessed. Patient is alert, oriented x 3, equal unlabored respirations, skin warm/dry/pink. 21:07 Reassessment: Patient appears in no apparent distress at this time. Patient and/or kj2 family updated on plan of care and expected duration. Pain level reassessed. Patient is alert, oriented x 3, equal unlabored respirations, skin warm/dry/pink. Vital Signs: 19:09 BP 157 / 99; Pulse 88; Resp 18; Temp 98.6; Pulse Ox 100% ; Weight 51.26 kg; Height 5 kj2 ft. 5 in. ; 21:07 BP 141 / 92; Pulse 78; Resp 18; Pulse Ox 100% on R/A; kj2 21:24 BP 142 / 90; Pulse 79; Resp 18; Temp 98.2; Pulse Ox 100% ; kj2 21:30 BP 122 / 74; Pulse 83; Resp 18; Temp 98; Pulse Ox 100% on R/A; kj2 19:09 Body Mass Index 18.80 (51.26 kg, 165.1 cm) kj2 ED Course: 18:31 Patient arrived in ED. al6 18:31 [facility] Restrepo [facility]-C [facility]. sb4 18:31 Stephen Tran MD is Attending Physician. sb4 18:49 Ginny Hairston, JOE is Primary Nurse. kj2 19:11 Triage completed. kj2 19:14 Patient has correct armband on for positive identification. Bed in low position. Call kj2 light in reach. Provided Education on: call light. 19:15 Arm band placed on Patient placed. kj2 19:51 Initial lab(s) drawn, by me, sent to lab. COVID swab sent to lab. Flu and/or RSV swab rk3 sent to lab. Strep swab sent to lab. Inserted saline lock: 20 gauge in left antecubital area, using aseptic technique. Blood collected. Flushed with 10 mL NS. 19:52 COVID-19 Ag + Flu A+B Ag Sent. rk3 19:52 BMP Sent. rk3 19:52 CBC with Diff Sent. rk3 19:52 Test, Urine Sent. rk3 19:52 UA Rfx Jarad Cult if indicated Sent. rk3 20:03 PHCP role handed off by Alina Restrepo PA-C cp 20:03 Kem Chen PA-C is PHCP. cp 21:25 No provider procedures requiring assistance completed. IV discontinued, intact, kj2 bleeding controlled, No redness/swelling at site. Pressure dressing applied. Administered Medications: No medications were administered Medication: 21:25 VIS not applicable for this client. kj2 Outcome: 21:19 Discharge ordered by MD. cp 21:26 Discharged to home ambulatory, kj2 21:26 Condition: stable 21:26 Discharge instructions given to patient, family, Instructed on discharge instructions, follow up and referral plans. Demonstrated understanding of instructions, follow-up care, 21:37 Patient left the ED. kj2 Signatures: Kem Chen PA-C PA-C cp Brown, Sophia, PA-C PA-C sb4 Ginny Hairston RN RN kj2 Carolina Carlos6 Alfredito Mott rk3
--- NOTE | 2024-12-16 21:20 | EDPHYS ---
Physician Documentation [facility] Name: July Simental Age: 24 yrs Sex: Female : 2000 Arrival Date: 12/16/2024 Time: 18:27 Bed Treatment Private MD: ED Physician Stephen Tran HPI: 12/16 18:54 This 24 yrs old Female presents to ER via Unassigned with complaints of Flu sb4 Symptoms. 18:54 Patient reports fever, malaise, chills, ear pain over the past few days. No cough, sb4 congestion, sore throat, nausea, vomiting, diarrhea. No sick contacts. She is just concerned because she is 1 month and during her she was septic from a UTI. She denies any urinary symptoms, although she did not have any urinary symptoms when she was septic. Denies any breast pain, redness, swelling, discharge. [employer]: 21:24 Not kj2 Historical: - Allergies: 19:14 cantoloupe; kj2 - PMHx: 19:14 arrhythmia; Asthma; Colitis; Heart Murmur; neurofibromatosis; Ovarian cyst; PUD; Ulcers;kj2 - Immunization history:: Adult Immunizations unknown. - Infectious Disease History:: Denies. - Social history:: Smoking status: unknown. ROS: 18:54 Cardiovascular: Negative for chest pain, palpitations, and edema, sb4 18:54 Constitutional: Positive for body aches, chills, fatigue, fever, malaise, 18:54 All other systems are negative, Exam: 18:54 Constitutional: This is a well developed, well nourished patient who is awake, alert, sb4 and in no acute distress. Head/Face: Normocephalic, atraumatic. Eyes: Extra-ocular motions intact. Periorbital areas with no swelling, redness, or edema. ENT: Mucous membranes moist. Respiratory: No increased work of breathing, no retractions or nasal flaring. Abdomen/GI: Soft, non-tender, no distension. Skin: Warm, dry with normal turgor. Normal color with no rashes, no lesions, and no evidence of cellulitis. 18:54 Chest/axilla: Breasts: are normal, cellulitis, is not appreciated, nipple discharge, is not appreciated, swelling, is not appreciated, tenderness, is not appreciated, 18:54 Cardiovascular: Rate: tachycardic, Rhythm: regular, Vital Signs: 19:09 BP 157 / 99; Pulse 88; Resp 18; Temp 98.6; Pulse Ox 100% ; Weight 51.26 kg; Height 5 kj2 ft. 5 in. ; 21:07 BP 141 / 92; Pulse 78; Resp 18; Pulse Ox 100% on R/A; kj2 21:24 BP 142 / 90; Pulse 79; Resp 18; Temp 98.2; Pulse Ox 100% ; kj2 21:30 BP 122 / 74; Pulse 83; Resp 18; Temp 98; Pulse Ox 100% on R/A; kj2 19:09 Body Mass Index 18.80 (51.26 kg, 165.1 cm) kj2 MDM: 18:32 Medical Screening Exam initiated sb4 18:54 Differential diagnosis: viral Infection, UTI. sb4 21:18 Data reviewed: vital signs, nurses notes, lab test result(s), and as a result, I will cp discharge patient. 21:18 Counseling: I had a detailed discussion with the patient and/or guardian regarding the cp historical points, exam findings, and any diagnostic results supporting the discharge/admit diagnosis, lab results, to return to the emergency department if symptoms worsen or persist or if there are any questions or concerns that arise at home. Response to treatment: the patient's symptoms have mildly improved after treatment, and as a result, I will discharge patient. 12/16 18:50 Order name: UA Rfx Jarad Cult if indicated; Complete Time: 21:10 [facility] 12/16 21:10 Interpretation: Normal except: UKET 1+; UESTR 25; URBC 5-10; BYST Trace. cp 12/16 18:50 Order name: Test, Urine; Complete Time: 21:10 [facility] 12/16 18:50 Order name: CBC with Diff; Complete Time: 21:10 [facility] 12/16 21:11 Interpretation: Normal except: WBC 11.70; HGB 11.0; HCT 35.7; MCV 77.2; MCH 23.8; MCHC cp 30.9; RDW 18.8; BARB% 75.2; NEUT A 8.8. 12/16 18:50 Order name: BMP; Complete Time: 21:10 [facility] 12/16 18:50 Order name: COVID-19 Ag + Flu A+B Ag; Complete Time: 21:10 sb4 12/16 18:50 Order name: Group A Streptococcus Rapid; Complete Time: 21:10 sb4 12/16 20:20 Order name: Throat Culture EDAL 12/16 18:50 Order name: IV Start; Complete Time: 19:51 sb4 Administered Medications: No medications were administered Disposition Summary: 12/16/24 21:19 Discharge Ordered Notes: Location: Home cp Problem: new cp Symptoms: have improved cp Condition: Stable cp Diagnosis - Nausea cp Followup: cp - With: Private Physician - When: 2 - 3 days - Reason: Worsening of condition Discharge Instructions: - Discharge Summary Sheet cp - Nausea, Adult cp Forms: - Medication Reconciliation Form cp - Antibiotic Education cp - Prescription Opioid Use cp - Patient Portal Instructions cp - Leadership Thank You Letter cp Prescriptions: - Zofran 4 mg Oral Tablet - take 1 tablet ORAL route every 12 hours As needed; 20 tablet; Refills: 0, cp Product Selection Permitted Signatures: Dispatcher [employer] EDAL Kem Chen PA-C PAAlina Valdes cp, PA-C PATiana sb4 Ginny Hairston, RN RN kj2 Corrections: (The following items were deleted from the chart) 21:21 21:19 Cough cp cp
[2024-12-17 04:26] VITALS: O2SAT 100
[2024-12-17 04:49] VITALS: BP 142/90; TEMP 98.2
== END 2024-12-16 21:37 | disposition home or self-care (01) ==
LOC: ER 18:27
DX: R11.0 Nausea (principal); R50.9 Fever, unspecified; R53.81 Other malaise; Z11.52 Encounter for screening for COVID-19
CPT/HCPCS: 36415; 80048; 81001; 81025; 85025; 87070; 87428; 99284